=== PATIENT | female | born 1940 | race Caucasian/White ===

== ENCOUNTER 2016-08-09 17:31 | Emergency (ER) | payer MEDICARE, BC ==
[2016-08-09] MEDS ORDERED: Sodium Chloride 0.9% 10 ML Syringe FLUSH PRN (18:28)
[2016-08-09] MEDS ORDERED: Albuterol/Ipratropium 3.0-0.5 MG/3 ML Neb Soln NEB ONE (18:28)
[2016-08-09] MEDS ORDERED: methylPREDNISolone Sodium Succinate 125 MG/2 ML SDV IVPUSH ONE (18:28)
[2016-08-09] MEDS ORDERED: Furosemide 40 MG/4 ML VIAL IVPUSH ONE (18:30)
[2016-08-09] MEDS ORDERED: Metoprolol Tartrate 25 MG Tab PO ONE (18:33)
[2016-08-09 19:23] LABS: CHLORIDE,CL 101 mmol/L (101-111); SODIUM,NA 139 mmol/L (135-145)
[2016-08-09] MEDS ORDERED: Nitroglycerin 0.4 MG Tab.SL SL ONE (19:58)
[2016-08-09 20:06] VITALS: BP 174/74
--- NOTE | 2016-08-10 01:33 | ER ---
SUBJECTIVE: The patient is a 75-year-old female with known COPD. She is on 2 L of oxygen during the night. She gets bronchitic symptoms on occasion. She has hypertension, hyperlipidemia, and is on multiple meds. She comes in today stating that she was seen already for a harsh congestive cough, yellow at times. She was diagnosed with bronchitis at the clinic today. She had a chest x-ray per her report and did not show any pneumonia. She was given antibiotic. She also note she had a little bit of hypertension in clinic today and she was told to watch her blood pressure. She did begin taking the doxycycline she was placed on. Apparently, her cough symptoms began on Friday of this previous week. She comes into ER tonight because her blood pressure went back up, even though she took her medicines. At home it was about 178 systolic and she forgets what the diastolic number was. She does have a mild headache, unsure if that was from the blood pressure or not. Otherwise, she has some fatigue and tiredness. She did have some nausea earlier. PAST MEDICAL HISTORY: Significant for cataracts, impaired vision, she wears glasses, cataract surgery; tonsillectomy; hyperlipidemia; hypertension; CAD; coronary stents; COPD, oxygen requirement at night at 2 L, ongoing and chronic tobacco abuse; removal of her appendix; bladder suspension; hysterectomy; arthritis; obesity; chickenpox and measles as a child. CURRENT MEDICATIONS: Include: 1. Albuterol HFA 2 puffs inhaled q.4 hours p.r.n. 2. DuoNeb inhaled p.r.n. 3. Aspirin 81 mg p.o. daily. 4. Multivitamin p.o. daily. 5. Calcium carbonate/vitamin D3 1200 units daily. 6. Lisinopril 5 mg p.o. daily. 7. Metoprolol 25 mg p.o. daily. 8. Fluticasone 1 puff inhaled daily. 9. Crestor 5 mg p.o. at bedtime. ALLERGIES: No allergies. SOCIAL HISTORY: She does use tobacco and has done so for many years. Currently 0.5 packs per day and started 50 years ago. She does use caffeine and soda. No alcohol. No recreational drug use. REVIEW OF SYSTEMS: No fevers, some fatigue. She is coughing quite a bit, bringing up some sputum. Mild headache. No syncope, near syncope, or vision changes. No trauma. No falls. No chest pain. She knows her blood pressure is elevated. No vomiting. She does have slight nausea earlier. No bowel or bladder changes. OBJECTIVE: Vital Signs: Height is 1.59 m, weight is 82 kg. She is afebrile. Heart rate 85, blood pressure is 231/107, respiratory rate 18, and oxygen is 90% on room air. General: Pleasant, no distress, nontoxic. HEENT: Normocephalic and atraumatic. Good historian. Normal speech. No respiratory distress. Conjunctivae are clear. Mucous membranes are moist. Neck: Unremarkable. No JVD. No lymphadenopathy. Chest: Somewhat coarse. She does have somewhat reduced breath sounds. CV: RRR. Abdomen: Soft, benign. Back: No CVAT. Extremities: Calves are nontender. There is trace swelling. LAB/STUDIES: White count is normal at 8.7. She has no anemia. Platelets are normal. Differential unremarkable. BMP is also unremarkable. A BNP is elevated at 205. EMERGENCY ROOM COURSE: She was given a DuoNeb. She was also given 10 mg IV of Lasix and 25 mg oral metoprolol. She was also given 125 mg IV of Solu-Medrol. She tolerated all of these well. Her blood pressure would jump, it did come down fairly well to a level at one point of 174 systolic and 71 diastolic. However, when she would get up to go to the bathroom and she was also somewhat anxious at times, her blood pressure would then come back up higher than this. She was then given a nitroglycerin sublingual which helped to reduce her blood pressure nicely. ASSESSMENT: 1. Acute bronchitis in patient with chronic and recurrent bronchitis with chronic obstructive pulmonary disease and ongoing tobacco abuse. 2. Hypertension. PLAN: Continue following blood pressure at home once or twice a day, stay with family. Continue with meds, and she may need blood pressure medicine changes when she follows up with PCP. See prescription for Medrol Dosepak. Return for any emergent or acute issues. Take Tylenol and ibuprofen for any discomfort. She was discharged home in stable and improved condition. [facility] /[id number]
== END 2016-08-09 20:36 | disposition home or self-care (01) ==
LOC: DL.ED 17:31
DX: J44.9 Chronic obstructive pulmonary disease, unspecified (principal); J20.9 Acute bronchitis, unspecified; I10 Essential (primary) hypertension; I25.10 Atherosclerotic heart disease of native coronary artery without angina pectoris; E66.9 Obesity, unspecified; M19.90 Unspecified osteoarthritis, unspecified site; F17.210 Nicotine dependence, cigarettes, uncomplicated; Z98.49 Cataract extraction status, unspecified eye; Z98.890 Other specified postprocedural states; Z90.710 Acquired absence of both cervix and uterus
CPT/HCPCS: 36415; 80048; 83880; 85025; 94640; 96374; 96375; 99283; A9270; J1940; J2930; J7050; 99284

== ENCOUNTER 2016-12-12 13:02 | Inpatient (IN) | payer MEDICARE, BC ==
[2016-12-12] MEDS ORDERED: Ondansetron 4 MG Tab.DIS PO PRN (14:18)
[2016-12-12] MEDS ORDERED: Ipratropium 0.02% 0.5 MG/2.5 ML Neb Soln INH PRN (14:26)
--- NOTE | 2016-12-12 14:37 | PCM.HP ---
H&P History of Present Illness - General Date of Service: 12/12/16 Admit Problem/Dx: Admission Diagnosis/Problem Admission Diagnosis/Problem Weakness of extremity Status post coronary artery bypass graft Hypertension Chronic obstructive airway disease Dyslipidemia Post operative pain Acute blood loss anemia Diarrhea Poor Appetite Source of Information: Patient, Old Records - History of Present Illness Initial Comments - Free Text/Narative: Mrs Wheeler is a 75 year old female with medical history of coronary artery disease hypertension and dyslipidemia. The patient was seen with complaint of shortness of breath at [facility], underwent stress test and was found to have significant ischemia. She underwent coronary angiogram which showed severe left main disease. The patient underwent coronary artery bypass graft on 07 December 2016. Post operatively the patient has been weak and has poor appetite and generalized body malaise. The patient is transferred to the rehabilitation for physical and occupational therapy. Today the patient also has no new complaints. Still feels weak poor appetite and gets short of breath with activity. She is needing supplemental oxygen Still has some shortness of breath Duration of Symptoms: Reports: Day(s): Improves with: Reports: None, Rest Worsens with: Reports: None, Movement Associated Symptoms: Reports: No Other Symptoms, Malaise, Weakness - Related Data Allergies/Adverse Reactions: Allergies Allergy/AdvReac Type Severity Reaction Status Date / Time environmental allergies Allergy Sneezing Uncoded 12/12/16 12:41 Home Medications: Home Meds Bioflav,Lemon/Vit BComp&C [Lipo-Flavonoid Plus Caplet] 1 each PO DAILY 03/25/14 [History] Calcium Carbonate/Vitamin D3 [Calcium 500 + Vit D 200 Caplet] 1 tab PO DAILY [History] Lisinopril [Lisinopril] 10 mg PO DAILY 03/25/14 [History] Rosuvastatin [Crestor] 20 mg PO BEDTIME 08/09/16 [History] Albuterol [Proventil Neb Soln] 2.5 mg NEB QIDRT PRN 12/11/16 [History] Fluticasone/Vilanterol [Breo Ellipta 200-25 Mcg INH] 1 puff INH DAILY 12/11/16 [ History] Ipratropium [Atrovent] 1 inh INH Q4HRRT PRN 12/11/16 [History] Multivitamin [Multiple Vitamins] 1 tab PO DAILY 12/11/16 [History] Amiodarone [Cordarone] 200 mg PO BID 12/12/16 [History] Aspirin/Calcium Carbonate/Mag [Aspirin Buffered 325 mg Tab] 1 tab PO DAILY 12/12 [History] Docusate Sodium [Dss] 1 cap PO DAILY 12/12/16 [History] Hydrocodone/Acetaminophen [Hydrocodon-Acetaminophen 5-325] 1 tab PO Q4HR PRN [History] Metoprolol Tartrate 25 mg PO BID 12/12/16 [History] Omeprazole 20 mg PO DAILY 12/12/16 [History] Past Medical History HEENT History: Reports: Cataract, Impaired Vision Other HEENT History: wears glasses Cardiovascular History: Reports: Afib, CAD, High Cholesterol, Hypertension, Stents Respiratory History: Reports: COPD, SOB Gastrointestinal History: Reports: None Genitourinary History: Reports: None Other Genitourinary History: bladder tie up in February [employer] History: Reports: Musculoskeletal History: Reports: Arthritis Neurological History: Reports: None Psychiatric History: Reports: None Endocrine/Metabolic History: Reports: Obesity/BMI 30+ Hematologic History: Reports: None Immunologic History: Reports: None Oncologic (Cancer) History: Reports: Other (See Below) Other Oncologic History: skin Dermatologic History: Reports: None - Infectious Disease History Infectious Disease History: Reports: Chicken Pox, Measles - Past Surgical History Head Surgeries/Procedures: Reports: None HEENT Surgical History: Reports: Cataract Surgery, Tonsillectomy Cardiovascular Surgical History: Reports: Coronary Artery Bypass, Other (See Below) Other Cardiovascular Surgeries/Procedures: CABG x 2 on December 06, 2016. GI Surgical History: Reports: Appendectomy Female Surgical History: Reports: Hysterectomy Social & Family History - Family History Family Medical History: Noncontributory - Tobacco Use Smoking Status *Q: Current Every Day Smoker Years of Tobacco use: 55 Packs/Tins Daily: 0.5 Used Tobacco, but Quit: No Second Hand Smoke Exposure: No - Caffeine Use Caffeine Use: Reports: Coffee, Soda - Alcohol Use Days Per Week of Alcohol Use: 0 - Recreational Drug Use Recreational Drug Use: No Drug Use in Last 12 Months: No - Living Situation & Occupation Living situation: Reports: , Alone Occupation: Retired H&P Review of Systems - Review of Systems: Review Of Systems: See Below General: Reports: Weakness, Fatigue HEENT: Reports: No Symptoms Pulmonary: Reports: Shortness of Breath Cardiovascular: Reports: Dyspnea on Exertion Gastrointestinal: Reports: No Symptoms, Diarrhea Genitourinary: Reports: No Symptoms Musculoskeletal: Reports: No Symptoms Skin: Reports: No Symptoms Psychiatric: Reports: No Symptoms Neurological: Reports: No Symptoms Hematologic/Lymphatic: Reports: No Symptoms Immunologic: Reports: No Symptoms Exam - Exam Exam: See Below (socially is shaking) - Vital Signs Vital Signs: Last Vital Signs Temp 37.0 C 12/12/16 13:31 Pulse 70 12/12/16 13:31 Resp 20 12/12/16 13:31 BP 154/47 H 12/12/16 13:31 Pulse Ox 94 L 12/12/16 13:31 Weight: 82.917 kg - Exam Quality Assessment: Supplemental Oxygen General: Alert, Oriented, Cooperative HEENT: PERRLA, Hearing Intact, Mucosa Moist & [place], Nares Patent, Normal Nasal Septum, Posterior Pharynx Clear, Conjunctiva Clear, EOMI, EACs Clear, TMs Clear Neck: Supple Lungs: Clear to Auscultation, Decreased Breath Sounds Cardiovascular: Regular Rate, Regular Rhythm, Normal S1, Normal S2 GI/Abdominal Exam: Normal Bowel Sounds, Soft, Non-Tender, No Organomegaly, No Distention, No Abnormal Bruit, No Mass, Pelvis Stable Back Exam: Normal Inspection, Full Range of Motion, NT Extremities: Normal Inspection, Normal Range of Motion, Non-Tender, No Pedal Edema, Normal Capillary Refill Skin: Warm, Dry Neurological: Cranial Nerves Intact, Normal Gait Neuro Extensive - Motor, Sensory, Reflexes: CN II-XII Intact Psychiatric: Alert, Normal Mood *Q Meaningful Use (ADM) - VTE *Q VTE Criteria *Q: - VTE Risk Assess *Q Each Risk Factor Represents 1 Point: History of Prior Major Surgery, Abnormal Pulmonary Function (COPD) Total Score 1 Point Risk Factors: 2 Each Risk Factor Represents 2 Points: Age 60 - 74 Years (All is any room for if she gets it when necessary and then made to scheduled on) Total Score 2 Point Risk Factors: 2 Each Risk Factor Represents 3 Points: Surgery, Major, Lasting 2 - 3 Hours Total Score 3 Point Risk Factors: 3 Each Risk Factor Represents 5 Points: None Total Score 5 Point Risk Factors: 0 Venous Thromboembolism Risk Factor Score *Q: 7 - Stroke *Q Stroke Criteria *Q: - AMI *Q AMI Criteria *Q: Problem List Initiated/Reviewed/Updated: Yes Orders Last 24hrs: Active Orders 24 hr Category Date Time Status Patient Status [ADT] Routine ADT 12/12/16 14:18 Ordered Communication Order [RC] ROUTINE Care 12/12/16 14:30 Ordered Height and Weight [RC] WEEKLY Care 12/12/16 14:21 Ordered Intake and Output [RC] QSHIFT Care 12/12/16 14:20 Ordered Oxygen Therapy [RC] PRN Care 12/12/16 14:18 Ordered Up ad [place] [RC] ASDIRECTED Care 12/12/16 14:18 Ordered VTE/DVT Education [RC] PER UNIT ROUTINE Care 12/12/16 14:18 Ordered Vital Signs [RC] PER UNIT ROUTINE Care 12/12/16 14:18 Ordered OT Evaluation and Treatment [CONS] Routine Cons 12/12/16 14:18 Ordered PT Evaluation and Treatment [CONS] Routine Cons 12/12/16 14:18 Ordered Regular Diet [DIET] Diet 12/12/16 Lunch Ordered Acetaminophen/HYDROcodone [[place] 325-5 MG] Med 12/12/16 21:00 Ordered 1 tab PO BEDTIME Acetaminophen/oxyCODONE [Percocet 325-5 MG] Med 12/12/16 14:18 Ordered 1 tab PO Q4H PRN Albuterol [Proventil Neb Soln] Med 12/12/16 14:26 Ordered 2.5 mg NEB QIDRT PRN Amiodarone [Cordarone] Med 12/12/16 21:00 Ordered 200 mg PO BID Aspirin/Calcium Carbonate/Mag [Aspirin Buffered 325 mg Med 12/13/16 09:00 Ordered Tab] 1 tab PO DAILY Bioflav,Lemon/Vit BComp&C [Lipo-Flavonoid Plus Caplet] Med 12/13/16 09:00 Ordered 1 each PO DAILY Calcium Carbonate/Vitamin D3 [Calcium Carbonate/Vitamin Med 12/13/16 09:00 Ordered D 1250 MG-200 Unit] 1 tab PO DAILY Fluticasone/Vilanterol [Breo Ellipta 200-25 Mcg INH] Med 12/13/16 09:00 Ordered 1 puff INH DAILY Heparin Sodium Med 12/12/16 22:00 Ordered 5,000 units SUBCUT Q8HR Ipratropium [Atrovent] Med 12/12/16 14:26 Ordered 1 inh INH Q4HRRT PRN Lisinopril [Prinivil] Med 12/13/16 09:00 Ordered 10 mg PO DAILY Metoprolol Tartrate [Lopressor] Med 12/12/16 21:00 Ordered 25 mg PO BID Multivitamin [Multiple Vitamins] Med 12/13/16 09:00 Ordered 1 tab PO DAILY Omeprazole Med 12/13/16 09:00 Ordered 20 mg PO DAILY Ondansetron [Zofran ODT] Med 12/12/16 14:18 Ordered 4 mg PO Q6H PRN Rosuvastatin [Crestor] Med 12/12/16 21:00 Ordered 20 mg PO BEDTIME Resuscitation Status Routine Resus Stat 12/12/16 14:18 Ordered Medication Orders Hydrocodone Bitart/Acetaminophen ([place] 325-5 Mg) 1 tab PO BEDTIME JOSE Albuterol (Proventil Neb Soln) 2.5 mg NEB QIDRT PRN PRN Reason: Shortness of Breath Amiodarone HCl (Cordarone) 200 mg PO BID JOSE Calcium Carbonate (Calcium Carbonate/Vitamin D 1250 Mg-200 Unit) 1 tab PO DAILY JOSE Heparin Sodium (Porcine) (Heparin Sodium) 5,000 units SUBCUT Q8HR JOSE Ipratropium [place] (Atrovent) mg INH Q4HRRT PRN PRN Reason: Shortness of Breath Lisinopril (Prinivil) 10 mg PO DAILY JOSE Metoprolol Tartrate (Lopressor) 25 mg PO BID JOSE Non-Formulary Medication (Fluticasone/Vilanterol [Breo Ellipta 200-25 Mcg Inh]) 1 puff INH DAILY JOSE Non-Formulary Medication (Multivitamin [Multiple Vitamins]) 1 tab PO DAILY JOSE Non-Formulary Medication (Bioflav,Lemon/Vit Bcomp&C [Lipo-Flavonoid Plus Caplet] ) 1 each PO DAILY JOSE Non-Formulary Medication (Aspirin/Calcium Carbonate/Mag [Aspirin Buffered 325 Mg Tab]) 1 tab PO DAILY JOSE Omeprazole (Omeprazole) 20 mg PO DAILY JOSE Ondansetron HCl (Zofran Odt) 4 mg PO Q6H PRN PRN Reason: nausea, able to take PO Oxycodone/Acetaminophen (Percocet 325-5 Mg) 1 tab PO Q4H PRN PRN Reason: Pain (moderate 4-6) Rosuvastatin Calcium (Crestor) 20 mg PO BEDTIME [facility] Assessment/Plan Comment:: Admission Diagnosis/Problem Generalized weakness Consult physical and occupational therapy Status post coronary artery bypass graft Surgery was on 07 December 2016 Admitted to [facility] bed for aggressive physical and occupational therapy Amiodarone Aspirin Hypertension Lisinopril Metoprolol Chronic obstructive airway disease Albuterol when necessary Fluticasone/Vilanterol Dyslipidemia Rosuvastatin Post operative pain Hydrocodone nightly Hydrocodone when necessary Acute blood loss anemia Serial hemoglobin Diarrhea Change Colace to when necessary Poor Appetite Provide nutritional supplements 2 times a day
[2016-12-12] MEDS ORDERED: Docusate Sodium 100 MG Cap PO PRN (15:00)
[2016-12-12] MEDS: Acetaminophen/oxyCODONE 325-5 MG Tab PO PRN ×2 (18:16→23:52)
[2016-12-12] MEDS: Rosuvastatin 10 MG Tab PO SCH (21:09)
[2016-12-12] MEDS: Amiodarone 200 MG Tab PO SCH (21:10)
[2016-12-12] MEDS: Metoprolol Tartrate 25 MG Tab PO SCH (21:10)
[2016-12-12] MEDS: Acetaminophen/HYDROcodone 325-5 MG Tab PO SCH (21:11)
[2016-12-12] MEDS: Heparin Sodium 5,000 Units/ML Vial SUBCUT SCH (21:13)
[2016-12-12] MEDS ORDERED: traZODone 50 MG Tab PO SCH (23:55)
[2016-12-13] MEDS: Heparin Sodium 5,000 Units/ML Vial SUBCUT SCH ×3 (06:39→21:27)
[2016-12-13] MEDS: Omeprazole 20 MG Cap.CR PO SCH (06:39)
[2016-12-13] MEDS: Calcium Carbonate/Vitamin D3 1250 MG-200 Unit Tab PO SCH (08:56)
[2016-12-13] MEDS: Multivitamins,Therapeutic Tab PO SCH (08:56)
[2016-12-13] MEDS: Metoprolol Tartrate 25 MG Tab PO SCH ×2 (08:57→21:24)
[2016-12-13] MEDS: Amiodarone 200 MG Tab PO SCH ×2 (08:57→21:27)
[2016-12-13] MEDS: Aspirin 325 MG Tab.EC PO SCH (08:57)
[2016-12-13] MEDS: Lisinopril 5 MG Tab PO SCH (08:58)
[2016-12-13] MEDS: Albuterol 0.083% 2.5 MG/3 ML Neb Soln NEB PRN ×2 (09:06→15:00)
[2016-12-13] MEDS: Acetaminophen/HYDROcodone 325-10 MG Tab PO PRN ×2 (16:03→23:02)
[2016-12-13] MEDS: [UNRECOGNIZED DRUG - OTHER] PO SCH (17:22)
[2016-12-13] MEDS: Rosuvastatin 10 MG Tab PO SCH (21:25)
[2016-12-13] MEDS: Non-Formulary Medication 1 Each PO SCH (21:26)
[2016-12-13] MEDS: Acetaminophen/HYDROcodone 325-5 MG Tab PO SCH (21:26)
[2016-12-14] MEDS: Omeprazole 20 MG Cap.CR PO SCH (05:57)
[2016-12-14] MEDS: Heparin Sodium 5,000 Units/ML Vial SUBCUT SCH ×3 (05:57→21:42)
[2016-12-14] MEDS: Acetaminophen/HYDROcodone 325-10 MG Tab PO PRN ×2 (05:57→15:10)
[2016-12-14] MEDS: Albuterol 0.083% 2.5 MG/3 ML Neb Soln NEB PRN ×2 (06:28→15:11)
[2016-12-14] MEDS: Aspirin 325 MG Tab.EC PO SCH (10:08)
[2016-12-14] MEDS: Acetaminophen/HYDROcodone 325-5 MG Tab PO SCH ×2 (10:08→21:39)
[2016-12-14] MEDS: Lisinopril 5 MG Tab PO SCH (10:09)
[2016-12-14] MEDS: Amiodarone 200 MG Tab PO SCH ×2 (10:09→21:37)
[2016-12-14] MEDS: Calcium Carbonate/Vitamin D3 1250 MG-200 Unit Tab PO SCH (10:11)
[2016-12-14] MEDS: Metoprolol Tartrate 25 MG Tab PO SCH ×2 (10:11→21:37)
[2016-12-14] MEDS: Multivitamins,Therapeutic Tab PO SCH (10:11)
[2016-12-14] MEDS: [UNRECOGNIZED DRUG - OTHER] PO SCH (10:12)
[2016-12-14] MEDS: Albuterol 0.083% 2.5 MG/3 ML Neb Soln NEB SCH ×3 (17:04→21:45)
[2016-12-14] MEDS ORDERED: Nicotine 21 MG/24 Hr Patch TRDERM SCH (21:00)
[2016-12-14] MEDS: Rosuvastatin 10 MG Tab PO SCH (21:37)
[2016-12-14] MEDS: Non-Formulary Medication 1 Each PO SCH (21:42)
[2016-12-15] MEDS: Acetaminophen/HYDROcodone 325-10 MG Tab PO PRN ×2 (00:49→23:56)
[2016-12-15] MEDS: Albuterol 0.083% 2.5 MG/3 ML Neb Soln NEB SCH ×6 (03:00→23:57)
[2016-12-15] MEDS: Heparin Sodium 5,000 Units/ML Vial SUBCUT SCH ×3 (06:19→21:38)
[2016-12-15] MEDS: Omeprazole 20 MG Cap.CR PO SCH (06:19)
[2016-12-15] MEDS: Acetaminophen/HYDROcodone 325-5 MG Tab PO SCH ×2 (09:41→20:46)
[2016-12-15] MEDS: [UNRECOGNIZED DRUG - OTHER] PO SCH (09:41)
[2016-12-15] MEDS: Calcium Carbonate/Vitamin D3 1250 MG-200 Unit Tab PO SCH (09:41)
[2016-12-15] MEDS: Nicotine 21 MG/24 Hr Patch TRDERM SCH (09:41)
[2016-12-15] MEDS: Aspirin 325 MG Tab.EC PO SCH (09:41)
[2016-12-15] MEDS: Metoprolol Tartrate 25 MG Tab PO SCH ×2 (09:42→20:45)
[2016-12-15] MEDS: Multivitamins,Therapeutic Tab PO SCH (09:43)
[2016-12-15] MEDS: Lisinopril 5 MG Tab PO SCH (09:44)
[2016-12-15] MEDS: Amiodarone 200 MG Tab PO SCH ×2 (09:44→20:44)
[2016-12-15] MEDS: Furosemide 40 MG Tab PO SCH (11:01)
--- NOTE | 2016-12-15 11:45 | PCM.PN ---
- General Info Date of Service: 12/15/16 Admission Dx/Problem (Free Text): Admission Diagnosis/Problem Admission Diagnosis/Problem Weakness of extremity Status post coronary artery bypass graft Hypertension Chronic obstructive airway disease Dyslipidemia Post operative pain Acute blood loss anemia Diarrhea Poor Appetite Subjective Update: Patient complains of feeling short of breath. This is worse when she ambulates and better with rest and Also complains of constipation. Has not had a bowel movement for 3 days. No fever and no chills - Review of Systems General: Reports: No Symptoms Pulmonary: Reports: Shortness of Breath Cardiovascular: Reports: Dyspnea on Exertion Genitourinary: Reports: No Symptoms Neurological: Reports: No Symptoms - Patient Data Vitals - most recent: Last Vital Signs Temp 36.4 C 12/15/16 07:40 Pulse 69 12/15/16 09:42 Resp 20 12/15/16 07:40 BP 154/48 H 12/15/16 09:44 Pulse Ox 99 12/15/16 07:40 Weight - most recent: 82.917 kg I&O - last 24 hours: Intake & Output 12/14/16 12/15/16 12/15/16 22:59 06:59 14:59 Intake Total 225 Output Total 600 Balance -375 Lab Results last 24 hrs: Laboratory Results - last 24 hr 12/15/16 Range/Units 06:25 B-Natriuretic Peptide 1270 H (0-100) pg/ml Med Orders - Current: Current Medications Hydrocodone Bitart/Acetaminophen ([place] 325-5 Mg) 1 tab PO BID [facility] Last Admin: 12/15/16 09:41 Dose: 1 tab Hydrocodone Bitart/Acetaminophen ([place] 325-10 Mg) 1 tab PO Q6H PRN PRN Reason: Pain Last Admin: 12/15/16 00:49 Dose: 1 tab Albuterol (Proventil Neb Soln) 2.5 mg NEB QIDRT PRN PRN Reason: Shortness of Breath Last Admin: 12/14/16 15:11 Dose: 2.5 mg Albuterol (Proventil Neb Soln) 2.5 mg NEB Q4HRRT [facility] Last Admin: 12/15/16 11:36 Dose: 2.5 mg Amiodarone HCl (Cordarone) 200 mg PO BID [facility] Stop: 12/25/16 21:01 Last Admin: 12/15/16 09:44 Dose: 200 mg Amiodarone HCl (Cordarone) 200 mg PO DAILY [facility] Stop: 01/01/17 09:01 Aspirin (Ecotrin) 325 mg PO DAILY [facility] Last Admin: 12/15/16 09:41 Dose: 325 mg Calcium Carbonate (Calcium Carbonate/Vitamin D 1250 Mg-200 Unit) 1 tab PO DAILY [facility] Last Admin: 12/15/16 09:41 Dose: 1 tab Docusate Sodium (Colace) 200 mg PO BID [facility] Furosemide (Lasix) 40 mg PO DAILY [facility] Last Admin: 12/15/16 11:01 Dose: 40 mg Heparin Sodium (Porcine) (Heparin Sodium) 5,000 units SUBCUT Q8HR [facility] Last Admin: 12/15/16 06:19 Dose: 5,000 units Ipratropium [place] (Atrovent) 0.5 mg INH Q4HRRT PRN PRN Reason: Shortness of Breath Lactulose (Cephulac) 20 gm PO BID [facility] Stop: 12/17/16 23:59 Lisinopril (Prinivil) 10 mg PO DAILY [facility] Last Admin: 12/15/16 09:44 Dose: 10 mg Metoprolol Tartrate (Lopressor) 25 mg PO BID [facility] Last Admin: 12/15/16 09:42 Dose: 25 mg Miscellaneous Information (Remove Patch) 1 ea TRDERM DAILY [facility] Last Admin: 12/15/16 10:02 Dose: Not Given Multivitamins (Thera) 1 each PO DAILY [facility] Last Admin: 12/15/16 09:43 Dose: 1 each Nicotine (Habitrol) 21 mg TRDERM DAILY [facility] Last Admin: 12/15/16 09:41 Dose: 21 mg Non-Formulary Medication (Fluticasone/Vilanterol [Breo Ellipta 200-25 Mcg Inh]) 1 puff INH DAILY [facility] Non-Formulary Medication (Nf Drug) 1 each PO BEDTIME [facility] Last Admin: 12/14/16 21:42 Dose: 1 each Omeprazole (Omeprazole) 20 mg PO ACBRK [facility] Last Admin: 12/15/16 06:19 Dose: 20 mg Ondansetron HCl (Zofran Odt) 4 mg PO Q6H PRN PRN Reason: nausea, able to take PO Bioflav,Lemon/Vit Bcomp&C [Lipo- Flavonoid Plus Caplet]Pt's Own Med 1 each PO DAILY [facility] Last Admin: 12/15/16 09:41 Dose: 1 each Rosuvastatin Calcium (Crestor) 20 mg PO BEDTIME JOSE Last Admin: 12/14/16 21:37 Dose: 20 mg Discontinued Medications Hydrocodone Bitart/Acetaminophen ([place] 325-5 Mg) 1 tab PO BEDTIME JOSE Last Admin: 12/12/16 21:11 Dose: 1 tab Docusate Sodium (Colace) 100 mg PO DAILY PRN PRN Reason: constipation Oxycodone/Acetaminophen (Percocet 325-5 Mg) 1 tab PO Q4H PRN PRN Reason: Pain (moderate 4-6) Last Admin: 12/12/16 23:52 Dose: 1 tab Trazodone HCl (Trazodone) 50 mg PO BEDTIME JOSE Last Admin: 12/13/16 00:48 Dose: Not Given - Exam Quality Assessment: supplemental oxygen General: no acute distress Neck: supple Lungs: Decreased Breath Sounds Cardiovascular: Regular Rate GI/Abdominal Exam: Normal Bowel Sounds Extremities: Normal Inspection, Normal Range of Motion, Non-Tender, No Pedal Edema, Normal Capillary Refill Skin: warm - Problem List Review Problem List Initiated/Reviewed/Updated: Yes - My Orders Last 24 Hours: My Active Orders 12/14/16 17:00 Albuterol [Proventil Neb Soln] 2.5 mg NEB Q4HRRT 12/15/16 09:00 Nicotine [Habitrol] 21 mg TRDERM DAILY Remove Patch 1 ea TRDERM DAILY 12/15/16 09:15 Furosemide [Lasix] 40 mg PO DAILY 12/15/16 21:00 Docusate Sodium [Colace] 200 mg PO BID Lactulose [Cephulac] 20 gm PO BID 12/26/16 09:00 Amiodarone [Cordarone] 200 mg PO DAILY - Plan Plan:: Admission Diagnosis/Problem #. Shortness of breath Likely due to congestive heart failure I will obtain chest x-ray initially showed pulmonary vascular congestion and small pleural effusion [place] natruretic peptide is elevated to more than 1200 #. Generalized weakness Consult physical and occupational therapy #. Status post coronary artery bypass graft Surgery was on 07 December 2016 Admitted to [facility] bed for aggressive physical and occupational therapy Amiodarone Aspirin #. Hypertension Lisinopril Metoprolol #. Chronic obstructive airway disease Albuterol when necessary Fluticasone/Vilanterol #. Dyslipidemia Rosuvastatin #. Post operative pain Hydrocodone nightly Hydrocodone when necessary #. Acute blood loss anemia Serial hemoglobin #. Constipation Likely due to narcotic analgesics Plan: Start patient on Lasix 40 mg daily Start patient on lactulose 20 g twice a day Increase Colace to 2 tablets twice a day
[2016-12-15] MEDS: Lactulose Soln 10 GM/15 ML 30 ML UD Cup PO SCH (20:44)
[2016-12-15] MEDS: Docusate Sodium 100 MG Cap PO SCH (20:45)
[2016-12-15] MEDS: Rosuvastatin 10 MG Tab PO SCH (20:47)
[2016-12-15] MEDS: Non-Formulary Medication 1 Each PO SCH (21:40)
[2016-12-16] MEDS: Albuterol 0.083% 2.5 MG/3 ML Neb Soln NEB SCH ×7 (04:07→23:57)
[2016-12-16] MEDS: Omeprazole 20 MG Cap.CR PO SCH (06:05)
[2016-12-16] MEDS: Acetaminophen/HYDROcodone 325-10 MG Tab PO PRN (06:05)
[2016-12-16] MEDS: Heparin Sodium 5,000 Units/ML Vial SUBCUT SCH ×3 (06:06→21:02)
[2016-12-16] MEDS: Nicotine 21 MG/24 Hr Patch TRDERM SCH (09:39)
[2016-12-16] MEDS: Acetaminophen/HYDROcodone 325-5 MG Tab PO SCH ×2 (09:39→20:54)
[2016-12-16] MEDS: Lactulose Soln 10 GM/15 ML 30 ML UD Cup PO SCH ×2 (09:41→21:02)
[2016-12-16] MEDS: Aspirin 325 MG Tab.EC PO SCH (09:42)
[2016-12-16] MEDS: Furosemide 40 MG Tab PO SCH (09:42)
[2016-12-16] MEDS: Docusate Sodium 100 MG Cap PO SCH ×2 (09:42→21:02)
[2016-12-16] MEDS: Metoprolol Tartrate 25 MG Tab PO SCH ×2 (09:42→20:53)
[2016-12-16] MEDS: Calcium Carbonate/Vitamin D3 1250 MG-200 Unit Tab PO SCH (09:43)
[2016-12-16] MEDS: Lisinopril 5 MG Tab PO SCH (09:43)
[2016-12-16] MEDS: Amiodarone 200 MG Tab PO SCH ×2 (09:43→20:52)
[2016-12-16] MEDS: Multivitamins,Therapeutic Tab PO SCH (09:43)
[2016-12-16] MEDS: [UNRECOGNIZED DRUG - OTHER] PO SCH (09:49)
[2016-12-16] MEDS: FLUTICASONE FUROATE INH SCH (11:38)
[2016-12-16] MEDS: VILANTEROL INH SCH ×3 (11:38→12:00)
[2016-12-16] MEDS: FLUTICASONE INH SCH ×2 (11:59→12:00)
[2016-12-16] MEDS: Rosuvastatin 10 MG Tab PO SCH (20:53)
[2016-12-16] MEDS: Non-Formulary Medication 1 Each PO SCH (20:58)
[2016-12-17] MEDS: Albuterol 0.083% 2.5 MG/3 ML Neb Soln NEB SCH ×3 (02:58→07:43)
[2016-12-17] MEDS: Heparin Sodium 5,000 Units/ML Vial SUBCUT SCH ×3 (05:34→21:50)
[2016-12-17] MEDS: Omeprazole 20 MG Cap.CR PO SCH (05:34)
[2016-12-17] MEDS: Calcium Carbonate/Vitamin D3 1250 MG-200 Unit Tab PO SCH (09:08)
[2016-12-17] MEDS: Docusate Sodium 100 MG Cap PO SCH ×2 (09:09→21:45)
[2016-12-17] MEDS: Amiodarone 200 MG Tab PO SCH ×2 (09:10→21:45)
[2016-12-17] MEDS: Nicotine 21 MG/24 Hr Patch TRDERM SCH (09:11)
[2016-12-17] MEDS: Furosemide 40 MG Tab PO SCH (09:11)
[2016-12-17] MEDS: Metoprolol Tartrate 25 MG Tab PO SCH ×2 (09:11→21:46)
[2016-12-17] MEDS: Aspirin 325 MG Tab.EC PO SCH (09:11)
[2016-12-17] MEDS: Lisinopril 5 MG Tab PO SCH (09:13)
[2016-12-17] MEDS: Multivitamins,Therapeutic Tab PO SCH (09:14)
[2016-12-17] MEDS: Acetaminophen/HYDROcodone 325-5 MG Tab PO SCH ×3 (09:14→21:49)
[2016-12-17] MEDS: VILANTEROL INH SCH (09:18)
[2016-12-17] MEDS: FLUTICASONE FUROATE INH SCH (09:18)
[2016-12-17] MEDS: [UNRECOGNIZED DRUG - OTHER] PO SCH (09:18)
[2016-12-17] MEDS: Lactulose Soln 10 GM/15 ML 30 ML UD Cup PO SCH (09:25)
[2016-12-17] MEDS: Albuterol/Ipratropium 3.0-0.5 MG/3 ML Neb Soln NEB SCH (18:00)
[2016-12-17] MEDS: Rosuvastatin 10 MG Tab PO SCH (21:45)
[2016-12-17] MEDS: Non-Formulary Medication 1 Each PO SCH (21:50)
[2016-12-18] MEDS: Heparin Sodium 5,000 Units/ML Vial SUBCUT SCH ×3 (06:41→21:24)
[2016-12-18] MEDS: Omeprazole 20 MG Cap.CR PO SCH (06:41)
[2016-12-18 06:54] LABS: CHLORIDE,CL 94 mmol/L (101-111); SODIUM,NA 138 mmol/L (135-145)
[2016-12-18] MEDS: Albuterol/Ipratropium 3.0-0.5 MG/3 ML Neb Soln NEB SCH ×2 (07:34→17:47)
[2016-12-18] MEDS: Calcium Carbonate/Vitamin D3 1250 MG-200 Unit Tab PO SCH (09:10)
[2016-12-18] MEDS: Aspirin 325 MG Tab.EC PO SCH (09:11)
[2016-12-18] MEDS: Amiodarone 200 MG Tab PO SCH ×2 (09:11→21:23)
[2016-12-18] MEDS: Metoprolol Tartrate 25 MG Tab PO SCH ×2 (09:12→21:21)
[2016-12-18] MEDS: Nicotine 21 MG/24 Hr Patch TRDERM SCH (09:12)
[2016-12-18] MEDS: Furosemide 40 MG Tab PO SCH (09:12)
[2016-12-18] MEDS: Acetaminophen/HYDROcodone 325-5 MG Tab PO SCH ×2 (09:13→21:23)
[2016-12-18] MEDS: Lisinopril 5 MG Tab PO SCH (09:14)
[2016-12-18] MEDS: [UNRECOGNIZED DRUG - OTHER] PO SCH (09:15)
[2016-12-18] MEDS: Multivitamins,Therapeutic Tab PO SCH (09:15)
[2016-12-18] MEDS: VILANTEROL INH SCH (09:16)
[2016-12-18] MEDS: FLUTICASONE FUROATE INH SCH (09:16)
[2016-12-18] MEDS: Docusate Sodium 100 MG Cap PO SCH ×2 (09:25→21:21)
[2016-12-18] MEDS: Rosuvastatin 10 MG Tab PO SCH (21:21)
[2016-12-18] MEDS: Non-Formulary Medication 1 Each PO SCH (21:26)
[2016-12-19] MEDS: Omeprazole 20 MG Cap.CR PO SCH (06:26)
[2016-12-19] MEDS: Heparin Sodium 5,000 Units/ML Vial SUBCUT SCH ×3 (06:26→21:48)
[2016-12-19] MEDS: Albuterol/Ipratropium 3.0-0.5 MG/3 ML Neb Soln NEB SCH ×2 (07:27→17:34)
[2016-12-19] MEDS: Docusate Sodium 100 MG Cap PO SCH ×2 (08:53→20:22)
[2016-12-19] MEDS: Calcium Carbonate/Vitamin D3 1250 MG-200 Unit Tab PO SCH (08:53)
[2016-12-19] MEDS: Aspirin 325 MG Tab.EC PO SCH (08:54)
[2016-12-19] MEDS: Nicotine 21 MG/24 Hr Patch TRDERM SCH (08:54)
[2016-12-19] MEDS: Furosemide 40 MG Tab PO SCH (08:54)
[2016-12-19] MEDS: Amiodarone 200 MG Tab PO SCH ×2 (08:54→20:22)
[2016-12-19] MEDS: Acetaminophen/HYDROcodone 325-5 MG Tab PO SCH ×2 (08:55→20:25)
[2016-12-19] MEDS: Metoprolol Tartrate 25 MG Tab PO SCH ×2 (08:55→20:24)
[2016-12-19] MEDS: Lisinopril 5 MG Tab PO SCH (08:56)
[2016-12-19] MEDS: FLUTICASONE FUROATE INH SCH (08:57)
[2016-12-19] MEDS: VILANTEROL INH SCH (08:57)
[2016-12-19] MEDS: [UNRECOGNIZED DRUG - OTHER] PO SCH (08:57)
[2016-12-19] MEDS: Multivitamins,Therapeutic Tab PO SCH (08:57)
[2016-12-19] MEDS ORDERED: Menthol/Methyl Salicylate 85 GM Tube TOP ONE (11:18)
[2016-12-19] MEDS: Menthol/Methyl Salicylate 85 GM Tube TOP PRN ×2 (11:51→20:26)
[2016-12-19] MEDS: Rosuvastatin 10 MG Tab PO SCH (20:23)
[2016-12-19] MEDS: Non-Formulary Medication 1 Each PO SCH (20:26)
[2016-12-20] MEDS: Acetaminophen/HYDROcodone 325-10 MG Tab PO PRN (02:35)
[2016-12-20] MEDS: Omeprazole 20 MG Cap.CR PO SCH (06:00)
[2016-12-20] MEDS: Heparin Sodium 5,000 Units/ML Vial SUBCUT SCH ×3 (06:01→22:00)
[2016-12-20] MEDS: Albuterol/Ipratropium 3.0-0.5 MG/3 ML Neb Soln NEB SCH ×2 (06:56→18:06)
[2016-12-20] MEDS: Metoprolol Tartrate 25 MG Tab PO SCH ×2 (10:19→21:54)
[2016-12-20] MEDS: Aspirin 325 MG Tab.EC PO SCH (10:20)
[2016-12-20] MEDS: Furosemide 40 MG Tab PO SCH (10:20)
[2016-12-20] MEDS: Lisinopril 5 MG Tab PO SCH (10:21)
[2016-12-20] MEDS: Amiodarone 200 MG Tab PO SCH ×2 (10:21→21:50)
[2016-12-20] MEDS: Calcium Carbonate/Vitamin D3 1250 MG-200 Unit Tab PO SCH (10:22)
[2016-12-20] MEDS: Acetaminophen/HYDROcodone 325-5 MG Tab PO SCH ×2 (10:22→21:55)
[2016-12-20] MEDS: Multivitamins,Therapeutic Tab PO SCH (10:22)
[2016-12-20] MEDS: Nicotine 21 MG/24 Hr Patch TRDERM SCH (10:23)
[2016-12-20] MEDS: Docusate Sodium 100 MG Cap PO SCH ×2 (10:27→21:51)
[2016-12-20] MEDS: [UNRECOGNIZED DRUG - OTHER] PO SCH (10:28)
[2016-12-20] MEDS: VILANTEROL INH SCH (10:29)
[2016-12-20] MEDS: FLUTICASONE FUROATE INH SCH (10:29)
[2016-12-20] MEDS: Rosuvastatin 10 MG Tab PO SCH (21:52)
[2016-12-20] MEDS: Non-Formulary Medication 1 Each PO SCH (22:02)
[2016-12-21] MEDS: Omeprazole 20 MG Cap.CR PO SCH (06:05)
[2016-12-21] MEDS: Heparin Sodium 5,000 Units/ML Vial SUBCUT SCH ×3 (06:06→22:26)
[2016-12-21] MEDS: Menthol/Methyl Salicylate 85 GM Tube TOP PRN ×3 (06:10→17:53)
[2016-12-21] MEDS: Albuterol/Ipratropium 3.0-0.5 MG/3 ML Neb Soln NEB SCH ×2 (07:19→18:15)
[2016-12-21] MEDS: Aspirin 325 MG Tab.EC PO SCH (09:27)
[2016-12-21] MEDS: Docusate Sodium 100 MG Cap PO SCH ×2 (09:28→22:20)
[2016-12-21] MEDS: Nicotine 21 MG/24 Hr Patch TRDERM SCH (09:28)
[2016-12-21] MEDS: Acetaminophen/HYDROcodone 325-5 MG Tab PO SCH ×2 (09:28→22:22)
[2016-12-21] MEDS: Multivitamins,Therapeutic Tab PO SCH (09:29)
[2016-12-21] MEDS: Lisinopril 5 MG Tab PO SCH (09:29)
[2016-12-21] MEDS: Metoprolol Tartrate 25 MG Tab PO SCH ×2 (09:29→22:21)
[2016-12-21] MEDS: Furosemide 40 MG Tab PO SCH (09:30)
[2016-12-21] MEDS: Amiodarone 200 MG Tab PO SCH ×2 (09:30→22:19)
[2016-12-21] MEDS: Calcium Carbonate/Vitamin D3 1250 MG-200 Unit Tab PO SCH (09:30)
[2016-12-21] MEDS: [UNRECOGNIZED DRUG - OTHER] PO SCH (09:35)
[2016-12-21] MEDS: VILANTEROL INH SCH (09:35)
[2016-12-21] MEDS: FLUTICASONE FUROATE INH SCH (09:35)
[2016-12-21] MEDS: Rosuvastatin 10 MG Tab PO SCH (22:21)
[2016-12-21] MEDS: Non-Formulary Medication 1 Each PO SCH (22:25)
[2016-12-22] MEDS: Heparin Sodium 5,000 Units/ML Vial SUBCUT SCH ×3 (06:03→21:02)
[2016-12-22] MEDS: Omeprazole 20 MG Cap.CR PO SCH (06:03)
[2016-12-22] MEDS: Albuterol/Ipratropium 3.0-0.5 MG/3 ML Neb Soln NEB SCH ×2 (07:40→18:10)
[2016-12-22] MEDS: Menthol/Methyl Salicylate 85 GM Tube TOP PRN ×2 (09:32→15:38)
[2016-12-22] MEDS: VILANTEROL INH SCH (09:32)
[2016-12-22] MEDS: FLUTICASONE FUROATE INH SCH (09:32)
[2016-12-22] MEDS: Docusate Sodium 100 MG Cap PO SCH ×2 (09:33→20:50)
[2016-12-22] MEDS: Nicotine 21 MG/24 Hr Patch TRDERM SCH (09:33)
[2016-12-22] MEDS: Furosemide 40 MG Tab PO SCH (09:34)
[2016-12-22] MEDS: Acetaminophen/HYDROcodone 325-5 MG Tab PO SCH ×2 (09:34→20:57)
[2016-12-22] MEDS: Lisinopril 5 MG Tab PO SCH (09:34)
[2016-12-22] MEDS: Amiodarone 200 MG Tab PO SCH ×2 (09:34→20:56)
[2016-12-22] MEDS: Aspirin 325 MG Tab.EC PO SCH (09:34)
[2016-12-22] MEDS: Metoprolol Tartrate 25 MG Tab PO SCH ×2 (09:36→20:56)
[2016-12-22] MEDS: Calcium Carbonate/Vitamin D3 1250 MG-200 Unit Tab PO SCH (09:36)
[2016-12-22] MEDS: Multivitamins,Therapeutic Tab PO SCH (09:36)
[2016-12-22] MEDS: [UNRECOGNIZED DRUG - OTHER] PO SCH (10:26)
[2016-12-22] MEDS: Rosuvastatin 10 MG Tab PO SCH (20:49)
[2016-12-22] MEDS: Non-Formulary Medication 1 Each PO SCH (20:58)
[2016-12-23] MEDS: Omeprazole 20 MG Cap.CR PO SCH (06:01)
[2016-12-23] MEDS: Heparin Sodium 5,000 Units/ML Vial SUBCUT SCH ×3 (06:02→21:22)
[2016-12-23] MEDS: Menthol/Methyl Salicylate 85 GM Tube TOP PRN ×3 (06:04→21:21)
[2016-12-23 07:25] LABS: CHLORIDE,CL 96 mmol/L (101-111); SODIUM,NA 136 mmol/L (135-145)
[2016-12-23] MEDS: Albuterol/Ipratropium 3.0-0.5 MG/3 ML Neb Soln NEB SCH ×2 (07:41→17:54)
[2016-12-23] MEDS: Calcium Carbonate/Vitamin D3 1250 MG-200 Unit Tab PO SCH (09:09)
[2016-12-23] MEDS: Multivitamins,Therapeutic Tab PO SCH (09:09)
[2016-12-23] MEDS: Aspirin 325 MG Tab.EC PO SCH (09:09)
[2016-12-23] MEDS: Furosemide 40 MG Tab PO SCH (09:10)
[2016-12-23] MEDS: Amiodarone 200 MG Tab PO SCH ×2 (09:10→21:17)
[2016-12-23] MEDS: Docusate Sodium 100 MG Cap PO SCH ×2 (09:10→21:17)
[2016-12-23] MEDS: Nicotine 21 MG/24 Hr Patch TRDERM SCH (09:10)
[2016-12-23] MEDS: Lisinopril 5 MG Tab PO SCH (09:10)
[2016-12-23] MEDS: Metoprolol Tartrate 25 MG Tab PO SCH ×2 (09:11→21:18)
[2016-12-23] MEDS: Acetaminophen/HYDROcodone 325-5 MG Tab PO SCH ×2 (09:11→21:18)
[2016-12-23] MEDS: [UNRECOGNIZED DRUG - OTHER] PO SCH (09:13)
[2016-12-23] MEDS: VILANTEROL INH SCH (09:13)
[2016-12-23] MEDS: FLUTICASONE FUROATE INH SCH (09:13)
[2016-12-23] MEDS: Rosuvastatin 10 MG Tab PO SCH (21:18)
[2016-12-23] MEDS: Non-Formulary Medication 1 Each PO SCH (21:19)
[2016-12-24] MEDS: Omeprazole 20 MG Cap.CR PO SCH (06:03)
[2016-12-24] MEDS: Heparin Sodium 5,000 Units/ML Vial SUBCUT SCH ×3 (06:03→21:16)
[2016-12-24] MEDS: Albuterol/Ipratropium 3.0-0.5 MG/3 ML Neb Soln NEB SCH ×2 (06:03→18:20)
[2016-12-24] MEDS: Menthol/Methyl Salicylate 85 GM Tube TOP PRN ×2 (06:23→21:19)
[2016-12-24] MEDS: Docusate Sodium 100 MG Cap PO SCH ×2 (09:31→21:14)
[2016-12-24] MEDS: Amiodarone 200 MG Tab PO SCH ×2 (09:32→21:15)
[2016-12-24] MEDS: Furosemide 40 MG Tab PO SCH (09:32)
[2016-12-24] MEDS: Calcium Carbonate/Vitamin D3 1250 MG-200 Unit Tab PO SCH (09:32)
[2016-12-24] MEDS: Metoprolol Tartrate 25 MG Tab PO SCH ×2 (09:33→21:15)
[2016-12-24] MEDS: Nicotine 21 MG/24 Hr Patch TRDERM SCH (09:34)
[2016-12-24] MEDS: Aspirin 325 MG Tab.EC PO SCH (09:34)
[2016-12-24] MEDS: Acetaminophen/HYDROcodone 325-5 MG Tab PO SCH ×2 (09:35→21:17)
[2016-12-24] MEDS: Lisinopril 5 MG Tab PO SCH (09:35)
[2016-12-24] MEDS: [UNRECOGNIZED DRUG - OTHER] PO SCH (09:45)
[2016-12-24] MEDS: VILANTEROL INH SCH (09:46)
[2016-12-24] MEDS: FLUTICASONE FUROATE INH SCH (09:46)
[2016-12-24] MEDS: Multivitamins,Therapeutic Tab PO SCH (09:51)
--- NOTE | 2016-12-24 14:29 | PCM.PN ---
- General Info Date of Service: 12/24/16 Admission Dx/Problem (Free Text): Admission Diagnosis/Problem Admission Diagnosis/Problem Weakness of extremity Status post coronary artery bypass graft Hypertension Chronic obstructive airway disease Dyslipidemia Post operative pain Acute blood loss anemia Diarrhea Poor Appetite Subjective Update: feeling good improving strength has been ambulating well with pt still need 1-2 l oxygen with ambulation short of breath is mild. This is worse when she ambulates and better with rest no cp with activity No fever and no chills - Review of Systems General: Denies: Fever Pulmonary: Reports: Shortness of Breath Cardiovascular: Denies: Chest Pain Gastrointestinal: Denies: Abdominal Pain Psychiatric: Denies: Confusion - Patient Data Vitals - Most Recent: Last Vital Signs Temp 36.8 C 12/24/16 08:24 Pulse 69 12/24/16 09:33 Resp 20 12/24/16 08:24 BP 169/43 H 12/24/16 09:35 Pulse Ox 99 12/24/16 08:24 Weight - Most Recent: 80.456 kg I&O - Last 24 Hours: Intake & Output 12/23/16 12/24/16 12/24/16 22:59 06:59 14:59 Intake Total 200 500 361 Balance 200 500 361 Med Orders - Current: Current Medications Hydrocodone Bitart/Acetaminophen ([place] 325-5 Mg) 1 tab PO BID [facility] Last Admin: 12/24/16 09:35 Dose: 1 tab Hydrocodone Bitart/Acetaminophen ([place] 325-10 Mg) 1 tab PO Q6H PRN PRN Reason: Pain Last Admin: 12/20/16 02:35 Dose: 1 tab Albuterol (Proventil Neb Soln) 2.5 mg NEB QIDRT PRN PRN Reason: Shortness of Breath Last Admin: 12/14/16 15:11 Dose: 2.5 mg Albuterol/Ipratropium (Duoneb 3.0-0.5 Mg/3 Ml) 3 ml NEB BIDRT [facility] Last Admin: 12/24/16 06:03 Dose: 3 ml Amiodarone HCl (Cordarone) 200 mg PO BID [facility] Stop: 12/25/16 21:01 Last Admin: 12/24/16 09:32 Dose: 200 mg Amiodarone HCl (Cordarone) 200 mg PO DAILY [facility] Stop: 01/01/17 09:01 Aspirin (Ecotrin) 325 mg PO DAILY [facility] Last Admin: 12/24/16 09:34 Dose: 325 mg Calcium Carbonate (Calcium Carbonate/Vitamin D 1250 Mg-200 Unit) 1 tab PO DAILY [facility] Last Admin: 12/24/16 09:32 Dose: 1 tab Docusate Sodium (Colace) 200 mg PO BID [facility] Last Admin: 12/24/16 09:31 Dose: 200 mg Furosemide (Lasix) 40 mg PO DAILY [facility] Last Admin: 12/24/16 09:32 Dose: 40 mg Heparin Sodium (Porcine) (Heparin Sodium) 5,000 units SUBCUT Q8HR [facility] Last Admin: 12/24/16 13:42 Dose: 5,000 units Ipratropium [place] (Atrovent) 0.5 mg INH Q4HRRT PRN PRN Reason: Shortness of Breath Methyl Salicylate (Icy Hot Cream) 0 gm TOP QID PRN PRN Reason: Pain Last Admin: 12/24/16 06:23 Dose: 1 applic Metoprolol Tartrate (Lopressor) 25 mg PO BID [facility] Last Admin: 12/24/16 09:33 Dose: 25 mg Miscellaneous Information (Remove Patch) 1 ea TRDERM DAILY [facility] Last Admin: 12/24/16 09:46 Dose: 1 ea Multivitamins (Thera) 1 each PO DAILY [facility] Last Admin: 12/24/16 09:51 Dose: Not Given Nicotine (Habitrol) 21 mg TRDERM DAILY [facility] Last Admin: 12/24/16 09:34 Dose: 21 mg Non-Formulary Medication (Nf Drug) 1 each PO BEDTIME [facility] Last Admin: 12/23/16 21:19 Dose: 1 each Omeprazole (Omeprazole) 20 mg PO ACBRK [facility] Last Admin: 12/24/16 06:03 Dose: 20 mg Ondansetron HCl (Zofran Odt) 4 mg PO Q6H PRN PRN Reason: nausea, able to take PO Bioflav,Lemon/Vit Bcomp&C [Lipo- Flavonoid Plus Caplet]Pt's Own Med 1 each PO DAILY [facility] Last Admin: 12/24/16 09:45 Dose: Not Given Breo Elliptra 100/25 Mcg Pt's Own Med* * 0 each INH DAILY [facility] Last Admin: 12/24/16 09:46 Dose: 1 each Rosuvastatin Calcium (Crestor) 20 mg PO BEDTIME [facility] Last Admin: 12/23/16 21:18 Dose: 20 mg Discontinued Medications Hydrocodone Bitart/Acetaminophen ([place] 325-5 Mg) 1 tab PO BEDTIME [facility] Last Admin: 12/12/16 21:11 Dose: 1 tab Albuterol (Proventil Neb Soln) 2.5 mg NEB Q4HRRT [facility] Last Admin: 12/17/16 07:43 Dose: 2.5 mg Docusate Sodium (Colace) 100 mg PO DAILY PRN PRN Reason: constipation Lactulose (Cephulac) 20 gm PO BID [facility] Stop: 12/17/16 23:59 Last Admin: 12/17/16 09:25 Dose: 20 gm Lisinopril (Prinivil) 10 mg PO DAILY [facility] Last Admin: 12/24/16 09:35 Dose: 10 mg Methyl Salicylate (Icy Hot Cream) 1 gm TOP BID ONE Stop: 12/19/16 11:19 Last Admin: 12/19/16 12:12 Dose: Not Given Oxycodone/Acetaminophen (Percocet 325-5 Mg) 1 tab PO Q4H PRN PRN Reason: Pain (moderate 4-6) Last Admin: 12/12/16 23:52 Dose: 1 tab Fluticasone/Vilanterol [Breo Ellipta 200-25 Mcg Inh]Pt's Own Med* 0 each INH DAILY [facility] Last Admin: 12/16/16 12:00 Dose: Not Given Trazodone HCl (Trazodone) 50 mg PO BEDTIME [facility] Last Admin: 12/13/16 00:48 Dose: Not Given - Exam Quality Assessment: Supplemental Oxygen General: Alert, Oriented Neck: Supple Lungs: Clear to Auscultation, Normal Respiratory Effort Cardiovascular: Regular Rate, Regular Rhythm GI/Abdominal Exam: Normal Bowel Sounds, Soft, Non-Tender Extremities: Normal Inspection, No Pedal Edema Neurological: No New Focal Deficit Psy/Mental Status: Alert, Normal Affect, Normal Mood - Problem List & Annotations (1) CAD (coronary artery disease) SNOMED Code(s): 31118225 Code(s): I25.10 - ATHSCL HEART DISEASE OF [place] CORONARY ARTERY W/O ANG PCTRS Status: Acute Current Visit: Yes (2) Hypertension SNOMED Code(s): 34607577 Code(s): I10 - ESSENTIAL (PRIMARY) HYPERTENSION Status: Acute Current Visit: No Onset Date: ~08/09/16 - Problem List Review Problem List Initiated/Reviewed/Updated: Yes - My Orders Last 24 Hours: My Active Orders 12/25/16 09:00 Lisinopril [Prinivil] 20 mg PO DAILY - Plan Plan:: Admission Diagnosis/Problem #. Shortness of breath Likely due to acute systolic congestive heart failure improved with diuretics #. Generalized weakness Continue physical and occupational therapy #. Status post coronary artery bypass graft Surgery was on 07 December 2016 Admitted to swing bed for aggressive physical and occupational therapy Amiodarone - taper Aspirin #. Hypertension uncontrolled increase Lisinopril continue Metoprolol #. Chronic obstructive airway disease Albuterol when necessary Fluticasone/Vilanterol #. Dyslipidemia Rosuvastatin #. Post operative pain Hydrocodone when necessary #. Acute blood loss anemia following CABG monitor
[2016-12-24] MEDS: Rosuvastatin 10 MG Tab PO SCH (21:14)
[2016-12-24] MEDS: Non-Formulary Medication 1 Each PO SCH (21:16)
[2016-12-25] MEDS: Heparin Sodium 5,000 Units/ML Vial SUBCUT SCH ×3 (06:15→22:13)
[2016-12-25] MEDS: Omeprazole 20 MG Cap.CR PO SCH (06:15)
[2016-12-25] MEDS: Menthol/Methyl Salicylate 85 GM Tube TOP PRN ×3 (06:23→22:14)
[2016-12-25] MEDS: Albuterol/Ipratropium 3.0-0.5 MG/3 ML Neb Soln NEB SCH ×2 (07:17→17:34)
[2016-12-25] MEDS: Furosemide 40 MG Tab PO SCH (10:15)
[2016-12-25] MEDS: Calcium Carbonate/Vitamin D3 1250 MG-200 Unit Tab PO SCH (10:16)
[2016-12-25] MEDS: Docusate Sodium 100 MG Cap PO SCH ×2 (10:17→22:09)
[2016-12-25] MEDS: Aspirin 325 MG Tab.EC PO SCH (10:18)
[2016-12-25] MEDS: Multivitamins,Therapeutic Tab PO SCH (10:18)
[2016-12-25] MEDS: Acetaminophen/HYDROcodone 325-5 MG Tab PO SCH ×2 (10:19→22:12)
[2016-12-25] MEDS: Nicotine 21 MG/24 Hr Patch TRDERM SCH (10:20)
[2016-12-25] MEDS: [UNRECOGNIZED DRUG - OTHER] PO SCH (10:29)
[2016-12-25] MEDS: Amiodarone 200 MG Tab PO SCH ×2 (10:42→22:10)
[2016-12-25] MEDS: Metoprolol Tartrate 25 MG Tab PO SCH ×2 (10:42→22:10)
[2016-12-25] MEDS: Lisinopril 20 MG Tab PO SCH (10:42)
[2016-12-25] MEDS: VILANTEROL INH SCH (10:46)
[2016-12-25] MEDS: FLUTICASONE FUROATE INH SCH (10:46)
[2016-12-25] MEDS: Polyethylene Glycol 3350 Powder 17 GM Packet PO SCH (16:25)
[2016-12-25] MEDS: Non-Formulary Medication 1 Each PO SCH (22:11)
[2016-12-25] MEDS: Rosuvastatin 10 MG Tab PO SCH (22:11)
[2016-12-26] MEDS: Heparin Sodium 5,000 Units/ML Vial SUBCUT SCH ×3 (06:43→22:06)
[2016-12-26] MEDS: Omeprazole 20 MG Cap.CR PO SCH (06:43)
[2016-12-26] MEDS: Albuterol/Ipratropium 3.0-0.5 MG/3 ML Neb Soln NEB SCH ×2 (07:33→18:04)
[2016-12-26] MEDS: Amiodarone 200 MG Tab PO SCH (08:58)
[2016-12-26] MEDS: Aspirin 325 MG Tab.EC PO SCH (08:59)
[2016-12-26] MEDS: Nicotine 21 MG/24 Hr Patch TRDERM SCH (08:59)
[2016-12-26] MEDS: Docusate Sodium 100 MG Cap PO SCH ×2 (08:59→20:30)
[2016-12-26] MEDS: Calcium Carbonate/Vitamin D3 1250 MG-200 Unit Tab PO SCH (08:59)
[2016-12-26] MEDS: [UNRECOGNIZED DRUG - OTHER] PO SCH (09:00)
[2016-12-26] MEDS: Lisinopril 20 MG Tab PO SCH (09:00)
[2016-12-26] MEDS: Furosemide 40 MG Tab PO SCH (09:01)
[2016-12-26] MEDS: Acetaminophen/HYDROcodone 325-5 MG Tab PO SCH ×2 (09:01→20:35)
[2016-12-26] MEDS: Multivitamins,Therapeutic Tab PO SCH (09:01)
[2016-12-26] MEDS: Metoprolol Tartrate 25 MG Tab PO SCH ×2 (09:02→20:36)
[2016-12-26] MEDS: Polyethylene Glycol 3350 Powder 17 GM Packet PO SCH (09:02)
[2016-12-26] MEDS: VILANTEROL INH SCH (09:03)
[2016-12-26] MEDS: FLUTICASONE FUROATE INH SCH (09:03)
[2016-12-26] MEDS: Menthol/Methyl Salicylate 85 GM Tube TOP PRN ×2 (09:03→20:37)
[2016-12-26] MEDS: Rosuvastatin 10 MG Tab PO SCH (20:34)
[2016-12-26] MEDS: Non-Formulary Medication 1 Each PO SCH (20:37)
[2016-12-27] MEDS: Omeprazole 20 MG Cap.CR PO SCH (05:55)
[2016-12-27] MEDS: Heparin Sodium 5,000 Units/ML Vial SUBCUT SCH ×2 (05:55→13:49)
[2016-12-27 06:59] LABS: CHLORIDE,CL 97 mmol/L (101-111); SODIUM,NA 137 mmol/L (135-145)
[2016-12-27] MEDS: Albuterol/Ipratropium 3.0-0.5 MG/3 ML Neb Soln NEB SCH (07:33)
[2016-12-27 08:22] VITALS: BP 169/49
[2016-12-27] MEDS: VILANTEROL INH SCH (09:15)
[2016-12-27] MEDS: FLUTICASONE FUROATE INH SCH (09:15)
[2016-12-27] MEDS: Acetaminophen/HYDROcodone 325-5 MG Tab PO SCH (09:16)
[2016-12-27] MEDS: Furosemide 40 MG Tab PO SCH (09:16)
[2016-12-27] MEDS: Lisinopril 20 MG Tab PO SCH (09:17)
[2016-12-27] MEDS: Metoprolol Tartrate 25 MG Tab PO SCH (09:17)
[2016-12-27] MEDS: Polyethylene Glycol 3350 Powder 17 GM Packet PO SCH (09:18)
[2016-12-27] MEDS: Aspirin 325 MG Tab.EC PO SCH (09:18)
[2016-12-27] MEDS: Amiodarone 200 MG Tab PO SCH (09:18)
[2016-12-27] MEDS: Nicotine 21 MG/24 Hr Patch TRDERM SCH (09:19)
[2016-12-27] MEDS: [UNRECOGNIZED DRUG - OTHER] PO SCH (09:20)
[2016-12-27] MEDS: Calcium Carbonate/Vitamin D3 1250 MG-200 Unit Tab PO SCH (09:20)
[2016-12-27] MEDS: Docusate Sodium 100 MG Cap PO SCH (09:20)
[2016-12-27] MEDS: Multivitamins,Therapeutic Tab PO SCH (09:21)
[2016-12-27] MEDS: Menthol/Methyl Salicylate 85 GM Tube TOP PRN (09:22)
--- NOTE | 2016-12-27 10:56 | PCM.DCSUM1 ---
Discharge Summary - Hospital Course Free Text/Narrative:: #. Status post coronary artery bypass graft Surgery was on 07 December 2016 Admitted to swing bed for aggressive physical and occupational therapy had postoperative Afib tapered and stopped amiodarone cont Metoprolol, asa #. Shortness of breath due to acute systolic congestive heart failure improved with diuretics #. Generalized weakness improved with physical and occupational therapy #. Hypertension was uncontrolled increased Lisinopril continue Metoprolol follow as out pt periodically #. Chronic obstructive airway disease Albuterol when necessary Fluticasone/Vilanterol will need home oxygen #. Dyslipidemia Rosuvastatin #. Post operative pain Hydrocodone when necessary #. Acute blood loss anemia following CABG monitor periodically - Discharge Data Discharge Date: 12/27/16 Discharge Disposition: Home, Self-Care 01 Condition: Good - Discharge Diagnosis/Problem(s) (1) CAD (coronary artery disease) SNOMED Code(s): 39389610 ICD Code: I25.10 - ATHSCL HEART DISEASE OF [place] CORONARY ARTERY W/O ANG PCTRS Status: Acute Current Visit: Yes (2) Hypertension SNOMED Code(s): 06924422 ICD Code: I10 - ESSENTIAL (PRIMARY) HYPERTENSION Status: Acute Current Visit: Yes Onset Date: ~08/09/16 - Patient Summary/Data Consults: Consultations 12/12/16 14:18 OT Evaluation and Treatment [CONS] Routine PT Evaluation and Treatment [CONS] Routine - Patient Instructions Diet: Heart Healthy Diet Activity: As Tolerated - Discharge Plan Prescriptions/Med Rec: Furosemide [Lasix] 40 mg PO DAILY #30 tablet Lisinopril [Prinivil] 20 mg PO BID #60 tablet Home Medications: Home Meds Bioflav,Lemon/Vit BComp&C [Lipo-Flavonoid Plus Caplet] 1 each PO DAILY 03/25/14 [History] Calcium Carbonate/Vitamin D3 [Calcium 500-Vit D3 200 Caplet] 1 tab PO DAILY [History] Rosuvastatin [Crestor] 20 mg PO BEDTIME 08/09/16 [History] Albuterol [Proventil Neb Soln] 2.5 mg NEB QIDRT PRN 12/11/16 [History] Ipratropium [Atrovent] 1 inh INH Q4HRRT PRN 12/11/16 [History] Multivitamin [Multiple Vitamins] 1 tab PO DAILY 12/11/16 [History] Aspirin/Calcium Carbonate/Mag [Aspirin Buffered 325 mg Tab] 1 tab PO DAILY 12/12 [History] Docusate Sodium [Dss] 1 cap PO DAILY 12/12/16 [History] Hydrocodone/Acetaminophen [Hydrocodon-Acetaminophen 5-325] 1 tab PO Q4HR PRN [History] Metoprolol Tartrate 25 mg PO BID 12/12/16 [History] Omeprazole 20 mg PO DAILY 12/12/16 [History] Melatonin 10 mg PO BEDTIME 12/13/16 [History] Fluticasone/Vilanterol [Breo Ellipta 100-25 MCG Inhalation Kit] 1 puff INH DAILY 12/16/16 [History] Furosemide [Lasix] 40 mg PO DAILY #30 tablet 12/27/16 [Rx] Lisinopril [Prinivil] 20 mg PO BID #60 tablet 12/27/16 [Rx] Patient Handouts: Coronary Artery Bypass Grafting, [id number], Coronary Artery Disease, Female - Discharge Summary/Plan Comment DC Time >30 min.: No - General Info Date of Service: 12/27/16 Admission Dx/Problem (Free Text: Admission Diagnosis/Problem Admission Diagnosis/Problem Weakness of extremity Status post coronary artery bypass graft Hypertension Chronic obstructive airway disease Dyslipidemia Post operative pain Acute blood loss anemia Diarrhea Poor Appetite Subjective Update: feeling good improving strength has been ambulating well with pt feels ready to go home still on oxygen short of breath is less. This is worse when she ambulates and better with rest no cp with activity No fever and no chills - Review of Systems General: Denies: Fever, Weakness Pulmonary: Reports: Shortness of Breath (mild ) Cardiovascular: Denies: Chest Pain Gastrointestinal: Denies: Abdominal Pain Genitourinary: Denies: Dysuria - Patient Data Vitals - Most Recent: Last Vital Signs Temp 36.4 C 12/27/16 08:22 Pulse 64 12/27/16 09:17 Resp 18 12/27/16 08:22 BP 169/49 H 12/27/16 09:17 Pulse Ox 97 12/27/16 08:22 Weight - Most Recent: 78.131 kg I&O - Last 24 hours: Intake & Output 12/26/16 12/27/16 12/27/16 22:59 06:59 14:59 Intake Total 320 220 Balance 320 220 Lab Results - Last 24 hrs: Laboratory Results - last 24 hr 12/27/16 12/27/16 Range/Units 06:15 06:15 WBC 9.2 (5.0-10.0) 10^3/uL RBC 3.52 L (4.2-5.4) 10^6/uL Hgb 10.6 L (12.0-16.0) g/dL Hct 32.9 L (37.0-47.0) % MCV 93.5 (80-100) fL MCH 30.1 (27.0-34.0) pg MCHC 32.2 L (33.0-35.0) g/dL Plt Count 180 (150-450) 10^3/uL Neut % (Auto) 69.0 (42.2-75.2) % Lymph % (Auto) 11.8 L (20.5-50.1) % [place] % (Auto) 13.7 H (2-8) % Eos % (Auto) 5.1 H (1.0-3.0) % Baso % (Auto) 0.4 (0.0-1.0) % Sodium 137 (135-145) mmol/L Potassium 4.3 (3.6-5.0) mmol/L Chloride 97 L (101-111) mmol/L Carbon Dioxide 30.0 (21.0-31.0) mmol/L Anion Gap 14.3 BUN 16 (7-18) mg/dL Creatinine 0.9 (0.6-1.3) mg/dL Est Cr Clr Drug Dosing 42.72 mL/min Estimated GFR (MDRD) > 60 Glucose 104 (74-105) mg/dL Calcium 9.2 (8.4-10.2) mg/dl Med Orders - Current: Current Medications Hydrocodone Bitart/Acetaminophen ([place] 325-5 Mg) 1 tab PO BID [facility] Last Admin: 12/27/16 09:16 Dose: 1 tab Hydrocodone Bitart/Acetaminophen ([place] 325-10 Mg) 1 tab PO Q6H PRN PRN Reason: Pain Last Admin: 12/20/16 02:35 Dose: 1 tab Albuterol (Proventil Neb Soln) 2.5 mg NEB QIDRT PRN PRN Reason: Shortness of Breath Last Admin: 12/14/16 15:11 Dose: 2.5 mg Albuterol/Ipratropium (Duoneb 3.0-0.5 Mg/3 Ml) 3 ml NEB BIDRT [facility] Last Admin: 12/27/16 07:33 Dose: 3 ml Amiodarone HCl (Cordarone) 200 mg PO DAILY [facility] Stop: 01/01/17 09:01 Last Admin: 12/27/16 09:18 Dose: 200 mg Aspirin (Ecotrin) 325 mg PO DAILY [facility] Last Admin: 12/27/16 09:18 Dose: 325 mg Calcium Carbonate (Calcium Carbonate/Vitamin D 1250 Mg-200 Unit) 1 tab PO DAILY [facility] Last Admin: 12/27/16 09:20 Dose: Not Given Docusate Sodium (Colace) 200 mg PO BID [facility] Last Admin: 12/27/16 09:20 Dose: Not Given Furosemide (Lasix) 40 mg PO DAILY [facility] Last Admin: 12/27/16 09:16 Dose: 40 mg Heparin Sodium (Porcine) (Heparin Sodium) 5,000 units SUBCUT Q8HR [facility] Last Admin: 12/27/16 05:55 Dose: 5,000 units Ipratropium [place] (Atrovent) 0.5 mg INH Q4HRRT PRN PRN Reason: Shortness of Breath Lisinopril (Prinivil) 20 mg PO BID [facility] Methyl Salicylate (Icy Hot Cream) 0 gm TOP QID PRN PRN Reason: Pain Last Admin: 12/27/16 09:22 Dose: 1 applic Metoprolol Tartrate (Lopressor) 25 mg PO BID [facility] Last Admin: 12/27/16 09:17 Dose: 25 mg Miscellaneous Information (Remove Patch) 1 ea TRDERM DAILY [facility] Last Admin: 12/27/16 09:20 Dose: 1 ea Multivitamins (Thera) 1 each PO DAILY [facility] Last Admin: 12/27/16 09:21 Dose: Not Given Nicotine (Habitrol) 21 mg TRDERM DAILY [facility] Last Admin: 12/27/16 09:19 Dose: 21 mg Non-Formulary Medication (Nf Drug) 1 each PO BEDTIME [facility] Last Admin: 12/26/16 20:37 Dose: 1 each Omeprazole (Omeprazole) 20 mg PO ACBRK [facility] Last Admin: 12/27/16 05:55 Dose: 20 mg Ondansetron HCl (Zofran Odt) 4 mg PO Q6H PRN PRN Reason: nausea, able to take PO Bioflav,Lemon/Vit Bcomp&C [Lipo- Flavonoid Plus Caplet]Pt's Own Med 1 each PO DAILY [facility] Last Admin: 12/27/16 09:20 Dose: Not Given Breo Elliptra 100/25 Mcg Pt's Own Med* * 0 each INH DAILY [facility] Last Admin: 12/27/16 09:15 Dose: 1 each Polyethylene Glycol (Miralax) 17 gm PO DAILY [facility] Last Admin: 12/27/16 09:18 Dose: 17 gm Rosuvastatin Calcium (Crestor) 20 mg PO BEDTIME [facility] Last Admin: 12/26/16 20:34 Dose: 20 mg Discontinued Medications Hydrocodone Bitart/Acetaminophen ([place] 325-5 Mg) 1 tab PO BEDTIME [facility] Last Admin: 12/12/16 21:11 Dose: 1 tab Albuterol (Proventil Neb Soln) 2.5 mg NEB Q4HRRT [facility] Last Admin: 12/17/16 07:43 Dose: 2.5 mg Amiodarone HCl (Cordarone) 200 mg PO BID [facility] Stop: 12/25/16 21:01 Last Admin: 12/25/16 22:10 Dose: 200 mg Docusate Sodium (Colace) 100 mg PO DAILY PRN PRN Reason: constipation Lactulose (Cephulac) 20 gm PO BID [facility] Stop: 12/17/16 23:59 Last Admin: 12/17/16 09:25 Dose: 20 gm Lisinopril (Prinivil) 10 mg PO DAILY [facility] Last Admin: 12/24/16 09:35 Dose: 10 mg Lisinopril (Prinivil) 20 mg PO DAILY [facility] Last Admin: 12/27/16 09:17 Dose: 20 mg Methyl Salicylate (Icy Hot Cream) 1 gm TOP BID ONE Stop: 12/19/16 11:19 Last Admin: 12/19/16 12:12 Dose: Not Given Oxycodone/Acetaminophen (Percocet 325-5 Mg) 1 tab PO Q4H PRN PRN Reason: Pain (moderate 4-6) Last Admin: 12/12/16 23:52 Dose: 1 tab Fluticasone/Vilanterol [Breo Ellipta 200-25 Mcg Inh]Pt's Own Med* 0 each INH DAILY [facility] Last Admin: 12/16/16 12:00 Dose: Not Given Trazodone HCl (Trazodone) 50 mg PO BEDTIME [facility] Last Admin: 12/13/16 00:48 Dose: Not Given - Exam Quality Assessment: Reports: Supplemental Oxygen General: Reports: Alert, Oriented Neck: Reports: Supple Lungs: Reports: Normal Respiratory Effort, Decreased Breath Sounds Cardiovascular: Reports: Regular Rate, Regular Rhythm, Murmurs (syst) GI/Abdominal Exam: Normal Bowel Sounds, Soft, Non-Tender Extremities: Normal Inspection Skin: Reports: Warm Wound/Incisions: Reports: Other (left groin area incison partially healed, no cellulitis, no drainage) Psy/Mental Status: Reports: Alert, Normal Affect, Normal Mood *Q Meaningful Use (DIS) - VTE *Q VTE Criteria *Q: VTE Mechanical Contraindications *Q: At Risk for Falls - Stroke *Q Stroke Criteria *Q: - AMI *Q AMI Criteria *Q:
[2016-12-27] MEDS ORDERED: Lisinopril 20 MG Tab PO SCH (21:00)
== END 2016-12-27 15:35 | disposition home or self-care (01) | DRG 947 ==
LOC: UNDOADMIN 13:02 → DL.MS 13:02
PROVIDERS: ADMIT Hospitalist; ATTEND Hospitalist
DX: R53.1 Weakness (principal); I50.21 Acute systolic (congestive) heart failure; D62 Acute posthemorrhagic anemia; I11.0 Hypertensive heart disease with heart failure; Z99.81 Dependence on supplemental oxygen; I25.10 Atherosclerotic heart disease of native coronary artery without angina pectoris; Z95.1 Presence of aortocoronary bypass graft; J44.9 Chronic obstructive pulmonary disease, unspecified; E78.5 Hyperlipidemia, unspecified; G89.18 Other acute postprocedural pain; F17.210 Nicotine dependence, cigarettes, uncomplicated; I48.91 Unspecified atrial fibrillation; R19.7 Diarrhea, unspecified; R63.0 Anorexia
CPT/HCPCS: 36415; 71010; 80048; 83880; 85025; 93306; 94640; 97110-GO; 97110-GP; 97116-GP; 97162-GP; 97165-GO; 97530-GO; A9270-GY; J1644; J7620-GY

== ENCOUNTER → 2017-09-30 | Day surgery (SDC) | payer MEDICARE, BC ==
[~2017-09-30] MED LIST: Dextrose 5%-0.45% NaCl 1,000 ML IV SCH; Midazolam 1 MG/ML 2 ML SDV IV ONE; Midazolam 1 MG/ML 2 ML SDV ONE; Sodium Chloride 0.9% 10 ML Syringe FLUSH PRN; fentaNYL 100 MCG/2 ML SDV IV ONE; fentaNYL 100 MCG/2 ML SDV ONE
[2017-09-30 07:46] VITALS: BP 157/60
--- NOTE | 2017-09-30 08:13 | OR ---
DATE: 09/30/2017 PROCEDURE PERFORMED: Total colonoscopy, NBI, and multiple cold snare polypectomies. INSTRUMENT USED: PCF-H180AL Olympus videocolonoscope. PREMEDICATIONS: Fentanyl 100 mcg intravenous and Versed 3 mg intravenous. Nasal O2 cannula. The procedure was done under pulse oximetry, BP recording, and flight surveyor. INDICATION: The patient with recent left-sided lower abdominal pain and CT suggestive of thickened sigmoid wall. Colonoscopic examination is done for detection of any polypoid lesions and removal, endoscopic hemostasis therapy if needed. DESCRIPTION OF PROCEDURE: Initial rectal exam was unremarkable. Rigid anoscopy was normal. The colonoscope was passed with ease. Numerous scattered diverticula were noted in the distal left colon along with deformity. The scope was passed with ease up to the ileocecal area, photographs were taken of the normal-appearing cecum identified by landmarks of appendiceal orifice and double- bulged ileocecal folds. No bleeding was noted from any of the visualized areas at the commencement of the examination. No stricture. No vascular ectasia. No large isolated ulcerations seen. No evidence of diffuse inflammatory bowel disease in the form of friability, contact bleeding, or ulcerations. Probing the proximal sides of folds and flexures, using adequate distention and clearing of the stool material, withdrawal of the scope was made. Diminutive benign- appearing colonic polyp was noted in the proximal transverse colon, NBI views were obtained, photographs were taken, cold snare polypectomy was done, the tissue was retrieved and sent for histopathology. In the distal descending colon, another diminutive polyp was noted, cold snare polypectomy was done, the tissue was retrieved and sent for histopathology. No bleeding was noted from any of the visualized areas at the completion of examination. IMPRESSION: 1. Diverticulosis. 2. Multiple colonic polyps. The patient tolerated the procedure well. [facility] /[id number]
== END | disposition home or self-care (01) ==
LOC: DL.ENDO 05:44
PROVIDERS: ATTEND Internal Medicine Gastroenterology
DX: D12.3 Benign neoplasm of transverse colon (principal); D12.4 Benign neoplasm of descending colon; K57.30 Diverticulosis of large intestine without perforation or abscess without bleeding; I10 Essential (primary) hypertension; I25.10 Atherosclerotic heart disease of native coronary artery without angina pectoris; J44.9 Chronic obstructive pulmonary disease, unspecified; E78.5 Hyperlipidemia, unspecified; E66.09 Other obesity due to excess calories; Z79.2 Long term (current) use of antibiotics; Z95.1 Presence of aortocoronary bypass graft; Z95.5 Presence of coronary angioplasty implant and graft; Z90.49 Acquired absence of other specified parts of digestive tract; Z90.710 Acquired absence of both cervix and uterus; Z86.010 Personal history of colon polyps
CPT/HCPCS: 45385; J2250; J3010; J7042; 88305

== ENCOUNTER 2018-02-09 18:36 | Observation (INO) | payer MEDICARE, BC ==
[2018-02-09] MEDS ORDERED: Sodium Chloride 0.9% 10 ML Syringe FLUSH PRN (19:05)
[2018-02-09 19:29] LABS: ANION GAP 11.1; CHLORIDE,CL 99 mmol/L (101-111); SODIUM,NA 139 mmol/L (135-145)
[2018-02-09] MEDS ORDERED: Acetaminophen 325 MG Tab PO ONE (19:47)
--- NOTE | 2018-02-09 19:53 | EDM.PDOC ---
ED HPI GENERAL MEDICAL PROBLEM - General Chief Complaint: Chest Pain Stated Complaint: HEART ISSUES [id number] Time Seen by Provider: 02/09/18 18:57 Source of Information: Reports: Patient, Family, RN, RN Notes Reviewed History Limitations: Reports: No Limitations - History of Present Illness INITIAL COMMENTS - FREE TEXT/NARRATIVE: Pt to ER with c/o generally not feeling well beginning this afternoon. Patient states she began to have a headache and her leg felt as if they were tingling. She states she found it difficult to breathe at times. She states she had an NH about 15 years ago, and double bypass 1 year ago. Patient states she checked her BP today and her machine told her she was in A fib. 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: Other (see below) Other Treatments ROAD SIGN INSTALLER: albuterol breathing treatment Frontal Head Pain Score (Numeric/FACES): 8 - Related Data Allergies Allergy/AdvReac Type Severity Reaction Status Date / Time environmental allergies Allergy Sneezing Uncoded 02/09/18 21:00 Home Meds: Home Meds Bioflav,Lemon/Vit BComp&C [Lipo-Flavonoid Plus Caplet] 1 each PO .PRN PRN [History] Calcium Carbonate/Vitamin D3 [Calcium 500-Vit D3 200 Caplet] 1 tab PO DAILY [History] Rosuvastatin [Crestor] 20 mg PO BEDTIME 08/09/16 [History] Albuterol [Proventil Neb Soln] 2.5 mg NEB .PRN PRN 12/11/16 [History] Ipratropium [Atrovent] 1 inh INH Q4HRRT PRN 12/11/16 [History] Multivitamin [Multiple Vitamins] 1 tab PO DAILY 12/11/16 [History] Fluticasone/Vilanterol [Breo Ellipta 100-25 MCG Inhalation Kit] 1 puff INH DAILY 12/16/16 [History] Aspirin [Ecotrin] 81 mg PO DAILY 12/27/16 [History] Furosemide [Lasix] 20 mg PO DAILY 01/08/17 [History] Metoprolol Succinate 50 mg PO DAILY 01/14/17 [History] Lisinopril [Prinivil] 20 mg PO DAILY 02/13/17 [History] Albuterol [Ventolin HFA] 2 puff INH Q6H PRN 09/26/17 [History] Bisacodyl [Dulcolax] 5 mg PO DAILY PRN 09/29/17 [History] Past Medical History HEENT History: Reports: Impaired Vision, Other (See Below) Other HEENT History: wears glasses Cardiovascular History: Reports: Bypass, CAD, High Cholesterol, Hypertension, NH , Stents Other Cardiovascular History: Coronary artery bypass grafting x2. left internal mammary artery to the left anterior descending artery. Sphenous vein graft to the first obtuse marginal branch. Hx of edema Respiratory History: Reports: Bronchitis, Recurrent, COPD Gastrointestinal History: Reports: None Genitourinary History: Reports: Renal Disease, Other (See Below) Other Genitourinary History: Chronic kidney disease-mineral and bone disorder. Chronic kidney disease state 3. Acute kidney injury. Microalbuminuria ASSURANCE ASSOCIATE History: Reports: , Other (See Below) Other ASSURANCE ASSOCIATE History: pap smear abnormality of cervix Musculoskeletal History: Reports: Arthritis, Other (See Below) Other Musculoskeletal History: DEXA scan Neurological History: Reports: Vertigo, Other (See Below) Other Neuro History: Benign positional vertigo Psychiatric History: Reports: None Endocrine/Metabolic History: Reports: Obesity/BMI 30+ Hematologic History: Reports: Other (See Below) Immunologic History: Reports: None Oncologic (Cancer) History: Reports: Other (See Below) Other Oncologic History: skin Dermatologic History: Reports: Other (See Below) Other Dermatologic History: skin cancer - Infectious Disease History Infectious Disease History: Reports: Chicken Pox, Measles - Past Surgical History Head Surgeries/Procedures: Reports: None HEENT Surgical History: Reports: Cataract Surgery, Tonsillectomy Other HEENT Surgeries/Procedures: LENS IMPLANT BILAT EYES Cardiovascular Surgical History: Reports: Coronary Artery Bypass, Coronary Artery Stent, Other (See Below) Other Cardiovascular Surgeries/Procedures: CABG x 2 on December 06, 2016. Respiratory Surgical History: Reports: None GI Surgical History: Reports: Appendectomy, Colonoscopy, EGD Female Surgical History: Reports: Hysterectomy, Other (See Below) Other Female Surgeries/Procedures: hx of post menopausal problems, removed a growth Endocrine Surgical History: Reports: None Neurological Surgical History: Reports: None Musculoskeletal Surgical History: Reports: None Oncologic Surgical History: Reports: None Dermatological Surgical History: Reports: Skin Biopsy Social & Family History - Family History Family Medical History: Noncontributory - Tobacco Use Smoking Status *Q: Current Some Day Smoker Years of Tobacco use: 58 Packs/Tins Daily: 1 - Caffeine Use Caffeine Use: Reports: Coffee, Soda, Tea Caffeine Use Comment: COFFEE & DIET COKE OCCASSIONALLY - Recreational Drug Use Recreational Drug Use: No - Living Situation & Occupation Living situation: Reports: , Alone Occupation: Retired ED ROS GENERAL - Review of Systems Review Of Systems: ROS reveals no pertinent complaints other than HPI. ED EXAM, GENERAL - Physical Exam Exam: See Below Exam Limited By: No Limitations General Appearance: Alert, WD/WN, No Apparent Distress Eye Exam: Bilateral Eye: EOMI, Normal Inspection Ears: Normal External Exam, Hearing Grossly Normal Nose: Normal Inspection Throat/Mouth: Normal Inspection, Normal Voice, No Airway Compromise Head: Atraumatic, Normocephalic Neck: Normal Inspection Respiratory/Chest: No Respiratory Distress, Rhonchi (right middle to lower lobes ) Cardiovascular: Normal Peripheral Pulses, No Edema, No Gallop, No JVD, Bradycardia, Irregularly Irregular Peripheral Pulses: 1+: Radial (L), Radial (R) GI/Abdominal: Normal Bowel Sounds, Soft, Non-Tender (Female) Exam: Deferred Rectal (Female) Exam: Deferred Back Exam: Normal Inspection, Full Range of Motion, NT Extremities: Normal Inspection, Normal Range of Motion, Non-Tender, Normal Capillary Refill, No Pedal Edema Neurological: Alert, Oriented, Normal Cognition, Normal Gait, No Motor/Sensory Deficits Psychiatric: Normal Affect, Normal Mood Skin Exam: Warm, Dry, Intact, Normal Color, No Rash Lymphatic: No Adenopathy EKG INTERPRETATION EKG Date: 02/09/18 Time: 18:48 Rhythm: Other P-Wave: Variable QRS: LBBB Comparison: NA - No Prior EKG Course - Vital Signs Last Recorded V/S: Last Vital Signs Temp 97.2 F 02/09/18 21:22 Pulse 70 02/09/18 21:22 Resp 16 02/09/18 21:22 BP 157/34 H 02/09/18 21:22 Pulse Ox 95 02/09/18 21:22 - Orders/Labs/Meds Orders: Active Orders 24 hr Category Date Time Status Peripheral IV Care [RC] . DIRECTED Care 02/09/18 19:06 Active Sodium Chloride 0.9% [Saline Flush] Med 02/09/18 19:05 Active 10 ml FLUSH ASDIRECTED PRN Peripheral IV Insertion Adult [OM.PC] Stat Oth 02/09/18 19:06 Ordered Medication Orders Acetaminophen (Tylenol) 650 mg PO Q4H PRN PRN Reason: Pain (Mild 1-3)/fever Albuterol (Proventil Hfa) 0 gm INH Q6H PRN PRN Reason: Wheezing Albuterol/Ipratropium (Duoneb 3.0-0.5 Mg/3 Ml) 3 ml NEB Q4H PRN PRN Reason: shortness of breath/wheezing Aspirin (Halfprin) 81 mg PO DAILY [facility] Calcium Carbonate (Calcium Carbonate/Vitamin D 1250 Mg-200 Unit) 1 tab PO DAILY [facility] Docusate Sodium (Colace) 100 mg PO BID PRN PRN Reason: Constipation Last Admin: 02/09/18 22:04 Dose: 100 mg Furosemide (Lasix) 20 mg PO DAILY [facility] Heparin Sodium (Porcine) (Heparin Sodium) 5,000 units SUBCUT Q12H JOSE Last Admin: 02/09/18 22:03 Dose: 5,000 units Sodium Chloride (Normal Saline) 1,000 mls @ 75 mls/hr IV ASDIRECTED JOSE Last Admin: 02/09/18 22:02 Dose: 75 mls/hr Lisinopril (Prinivil) 20 mg PO DAILY [facility] Magnesium Hydroxide (Milk Of Magnesia) 30 ml PO Q12H PRN PRN Reason: Constipation Metoprolol Succinate (Toprol Xl) 50 mg PO DAILY [facility] Mometasone Furoate/Formoterol Fumar (Dulera 200-5 Mcg) 0 puff IH DAILY [facility] Multivitamins (Thera) 1 each PO DAILY [facility] Non-Formulary Medication (Bioflav,Lemon/Vit Bcomp&C [Lipo-Flavonoid Plus Caplet] ) 1 each PO .PRN PRN PRN Reason: VERTIGO Ondansetron HCl (Zofran) 4 mg IVPUSH Q6H PRN PRN Reason: Nausea/Vomiting Rosuvastatin Calcium (Crestor) 20 mg PO BEDTIME [facility] Sodium Chloride (Saline Flush) 10 ml FLUSH ASDIRECTED PRN PRN Reason: Keep Vein Open Last Admin: 02/09/18 18:58 Dose: 10 ml Labs: Laboratory Tests 02/09/18 02/09/18 02/09/18 Range/Units 18:58 18:58 18:58 WBC 9.0 (5.0-10.0) 10^3/uL RBC 4.79 (4.2-5.4) 10^6/uL Hgb 14.5 D (12.0-16.0) g/dL Hct 44.9 (37.0-47.0) % MCV 93.7 (80-100) fL MCH 30.3 (27.0-34.0) pg MCHC 32.3 L (33.0-35.0) g/dL Plt Count 152 (150-450) 10^3/uL Neut % (Auto) 64.4 (42.2-75.2) % Lymph % (Auto) 21.0 (20.5-50.1) % [place] % (Auto) 11.6 H (2-8) % Eos % (Auto) 2.7 (1.0-3.0) % Baso % (Auto) 0.3 (0.0-1.0) % PT (9.0-12.0) SEC INR (0.9-1.2) Sodium 139 (135-145) mmol/L Potassium 4.1 (3.6-5.0) mmol/L Chloride 99 L (101-111) mmol/L Carbon Dioxide 33.0 H (21.0-31.0) mmol/L Anion Gap 11.1 BUN 14 (7-18) mg/dL Creatinine 0.9 (0.6-1.3) mg/dL Est Cr Clr Drug Dosing 43.99 mL/min Estimated GFR (MDRD) > 60 BUN/Creatinine Ratio 15.55 Glucose 116 H (74-105) mg/dL Calcium 9.0 (8.4-10.2) mg/dl Phosphorus (2.5-4.6) mg/dL Magnesium (1.8-2.5) mg/dL Total Bilirubin 0.5 (0.2-1.0) mg/dL AST 20 (10-42) IU/L ALT 14 (10-60) IU/L Alkaline Phosphatase 83 (42-121) IU/L Troponin I < 0.02 (0.00-0.02) ng/ml B-Natriuretic Peptide 149 H (0-100) pg/ml Total Protein 7.0 (6.7-8.2) g/dl Albumin 4.1 (3.2-5.5) g/dl Globulin 2.9 Albumin/Globulin Ratio 1.41 Urine Color (YELLOW) Urine Appearance (CLEAR) Urine pH (5.0-9.0) Ur Specific [place] (1.005-1.030) Urine Protein (NEGATIVE) Urine Glucose (UA) (NEGATIVE) Urine Ketones (NEGATIVE) Urine Occult Blood (NEGATIVE) Urine Nitrite (NEGATIVE) Urine Bilirubin (NEGATIVE) Urine Urobilinogen (0.2-1.0) mg/dL Ur Leukocyte Esterase (NEGATIVE) Urine RBC /HPF Urine WBC (0-5/HPF) /HPF Ur Epithelial Cells /HPF Amorphous Sediment (0/HPF) /HPF Urine Bacteria (0-FEW/HPF) /HPF 02/09/18 02/09/18 02/09/18 Range/Units 18:58 18:58 19:21 WBC (5.0-10.0) 10^3/uL RBC (4.2-5.4) 10^6/uL Hgb (12.0-16.0) g/dL Hct (37.0-47.0) % MCV (80-100) fL MCH (27.0-34.0) pg MCHC (33.0-35.0) g/dL Plt Count (150-450) 10^3/uL Neut % (Auto) (42.2-75.2) % Lymph % (Auto) (20.5-50.1) % [place] % (Auto) (2-8) % Eos % (Auto) (1.0-3.0) % Baso % (Auto) (0.0-1.0) % PT 9.7 (9.0-12.0) SEC INR 1.0 (0.9-1.2) Sodium (135-145) mmol/L Potassium (3.6-5.0) mmol/L Chloride (101-111) mmol/L Carbon Dioxide (21.0-31.0) mmol/L Anion Gap BUN (7-18) mg/dL Creatinine (0.6-1.3) mg/dL Est Cr Clr Drug Dosing mL/min Estimated GFR (MDRD) BUN/Creatinine Ratio Glucose (74-105) mg/dL Calcium (8.4-10.2) mg/dl Phosphorus 3.6 (2.5-4.6) mg/dL Magnesium 2.2 (1.8-2.5) mg/dL Total Bilirubin (0.2-1.0) mg/dL AST (10-42) IU/L ALT (10-60) IU/L Alkaline Phosphatase (42-121) IU/L Troponin I (0.00-0.02) ng/ml B-Natriuretic Peptide (0-100) pg/ml Total Protein (6.7-8.2) g/dl Albumin (3.2-5.5) g/dl Globulin Albumin/Globulin Ratio Urine Color (YELLOW) Urine Appearance (CLEAR) Urine pH (5.0-9.0) Ur Specific [place] (1.005-1.030) Urine Protein (NEGATIVE) Urine Glucose (UA) (NEGATIVE) Urine Ketones (NEGATIVE) Urine Occult Blood (NEGATIVE) Urine Nitrite (NEGATIVE) Urine Bilirubin (NEGATIVE) Urine Urobilinogen (0.2-1.0) mg/dL Ur Leukocyte Esterase (NEGATIVE) Urine RBC /HPF Urine WBC (0-5/HPF) /HPF Ur Epithelial Cells /HPF Amorphous Sediment (0/HPF) /HPF Urine Bacteria (0-FEW/HPF) /HPF //18 Range/Units 20:28 WBC (5.0-10.0) 10^3/uL RBC (4.2-5.4) 10^6/uL Hgb (12.0-16.0) g/dL Hct (37.0-47.0) % MCV (80-100) fL MCH (27.0-34.0) pg MCHC (33.0-35.0) g/dL Plt Count (150-450) 10^3/uL Neut % (Auto) (42.2-75.2) % Lymph % (Auto) (20.5-50.1) % [place] % (Auto) (2-8) % Eos % (Auto) (1.0-3.0) % Baso % (Auto) (0.0-1.0) % PT (9.0-12.0) SEC INR (0.9-1.2) Sodium (135-145) mmol/L Potassium (3.6-5.0) mmol/L Chloride (101-111) mmol/L Carbon Dioxide (21.0-31.0) mmol/L Anion Gap BUN (7-18) mg/dL Creatinine (0.6-1.3) mg/dL Est Cr Clr Drug Dosing mL/min Estimated GFR (MDRD) BUN/Creatinine Ratio Glucose (74-105) mg/dL Calcium (8.4-10.2) mg/dl Phosphorus (2.5-4.6) mg/dL Magnesium (1.8-2.5) mg/dL Total Bilirubin (0.2-1.0) mg/dL AST (10-42) IU/L ALT (10-60) IU/L Alkaline Phosphatase (42-121) IU/L Troponin I (0.00-0.02) ng/ml B-Natriuretic Peptide (0-100) pg/ml Total Protein (6.7-8.2) g/dl Albumin (3.2-5.5) g/dl Globulin Albumin/Globulin Ratio Urine Color Yellow (YELLOW) Urine Appearance Slightly cloudy (CLEAR) Urine pH 7.5 (5.0-9.0) Ur Specific [place] 1.010 (1.005-1.030) Urine Protein Negative (NEGATIVE) Urine Glucose (UA) Negative (NEGATIVE) Urine Ketones Negative (NEGATIVE) Urine Occult Blood Negative (NEGATIVE) Urine Nitrite Negative (NEGATIVE) Urine Bilirubin Negative (NEGATIVE) Urine Urobilinogen 0.2 (0.2-1.0) mg/dL Ur Leukocyte Esterase Trace H (NEGATIVE) Urine RBC 5-10 H /HPF Urine WBC 0-5 (0-5/HPF) /HPF Ur Epithelial Cells Rare /HPF Amorphous Sediment Rare (0/HPF) /HPF Urine Bacteria Rare (0-FEW/HPF) /HPF Meds: Medications Generic Name Dose Route Start Last Admin Trade Name Freq PRN Reason Stop Dose Admin Acetaminophen 650 mg 02/09/18 21:22 Tylenol PO Q4H PRN Pain (Mild 1-3)/fever Albuterol 0 gm 02/09/18 21:55 Proventil Hfa INH Q6H PRN Wheezing Albuterol/Ipratropium 3 ml 02/09/18 21:22 Duoneb 3.0-0.5 Mg/3 Ml NEB Q4H PRN shortness of breath/wheezing Aspirin 81 mg 02/10/18 09:00 Halfprin PO DAILY JOSE Calcium Carbonate 1 tab 02/10/18 09:00 Calcium Carbonate/Vitamin D 1250 Mg-200 Unit PO DAILY [facility] Docusate Sodium 100 mg 02/09/18 21:22 02/09/18 22:04 Colace PO 100 mg BID PRN Administration Constipation Furosemide 20 mg 02/10/18 09:00 Lasix PO DAILY [facility] Heparin Sodium (Porcine) 5,000 units 02/09/18 21:00 02/09/18 22:03 Heparin Sodium SUBCUT 5,000 units Q12H JOSE Administration Sodium Chloride 1,000 mls @ 75 mls/hr 02/09/18 21:30 02/09/18 22:02 Normal Saline IV 75 mls/hr ASDIRECTED JOSE Administration Lisinopril 20 mg 02/10/18 09:00 Prinivil PO DAILY [facility] Magnesium Hydroxide 30 ml 02/09/18 21:22 Milk Of Magnesia PO Q12H PRN Constipation Metoprolol Succinate 50 mg 02/10/18 09:00 Toprol Xl PO DAILY [facility] Mometasone Furoate/Formoterol Fumar 0 puff 02/10/18 09:00 Dulera 200-5 Mcg IH DAILY [facility] Multivitamins 1 each 02/10/18 09:00 Thera PO DAILY [facility] Non-Formulary Medication 1 each 02/09/18 21:55 Bioflav,Lemon/Vit Bcomp&C [Lipo-Flavonoid Plus Caplet] PO .PRN PRN VERTIGO Ondansetron HCl 4 mg 02/09/18 21:22 Zofran IVPUSH Q6H PRN Nausea/Vomiting Rosuvastatin Calcium 20 mg 02/10/18 21:00 Crestor PO BEDTIME [facility] Sodium Chloride 10 ml 02/09/18 19:05 02/09/18 18:58 Saline Flush FLUSH 10 ml ASDIRECTED PRN Administration Keep Vein Open Discontinued Medications Generic Name Dose Route Start Last Admin Trade Name Freq PRN Reason Stop Dose Admin Acetaminophen 650 mg 02/09/18 19:47 02/09/18 19:52 Tylenol PO 02/09/18 19:48 650 mg NOW ONE Administration - Radiology Interpretation Free Text/Narrative:: Chest xray: IMPRESSION: 1. The lungs are hyperinflated, consistent with underlying small airways disease. The vasculature demonstrates diffuse moderate atherosclerotic calcification. 2. Mild interstitial prominence bilaterally. Thank you for allowing us to participate in the care of your patient. See Rad report Departure - Departure Time of Disposition: 20:24 Disposition: Refer to Observation Condition: Fair Clinical Impression: New onset atrial fibrillation - My Orders Last 24 Hours: My Active Orders 02/09/18 19:05 Sodium Chloride 0.9% [Saline Flush] 10 ml FLUSH ASDIRECTED PRN 02/09/18 19:06 Peripheral IV Care [RC] . DIRECTED Peripheral IV Insertion Adult [OM.PC] Stat - Assessment/Plan Last 24 Hours: My Active Orders 02/09/18 19:05 Sodium Chloride 0.9% [Saline Flush] 10 ml FLUSH ASDIRECTED PRN 02/09/18 19:06 Peripheral IV Care [RC] . DIRECTED Peripheral IV Insertion Adult [OM.PC] Stat
[2018-02-09] MEDS ORDERED: Docusate Sodium 100 MG Cap PO PRN (21:22)
[2018-02-09] MEDS ORDERED: Acetaminophen 325 MG Tab PO PRN (21:22)
[2018-02-09] MEDS ORDERED: Albuterol/Ipratropium 3.0-0.5 MG/3 ML Neb Soln NEB PRN (21:22)
[2018-02-09] MEDS ORDERED: Magnesium Hydroxide 400 MG/5 ML Susp 30 ML Cup PO PRN (21:22)
[2018-02-09] MEDS ORDERED: Ondansetron 4 MG/2 ML SDV IVPUSH PRN (21:22)
[2018-02-09] MEDS ORDERED: Sodium Chloride 0.9% 1,000 ML IV SCH (21:30)
--- NOTE | 2018-02-09 21:46 | PCM.HP ---
H&P History of Present Illness - General Date of Service: 02/09/18 Admit Problem/Dx: Admission Diagnosis/Problem Admission Diagnosis/Problem Atrial fibrillation or flutter Source of Information: Patient History Limitations: Reports: No Limitations - History of Present Illness Initial Comments - Free Text/Narative: Jenna Wheeler is 77 y/o F with PMH significant for ?A-fib, hypertension, dyslipidemia, moderate chronic obstructive pulmonary disease on oxygen at nighttime, history of tobacco use, coronary artery disease with CABG in 2017. She presented brittney the ER because of palpitation. Patient said she was well today until she above started. She felt her heart was racing. She took her BP at home and it was 180/85 so she decided to come to the ER. She denied any associated symptom. No chest pain, SOB, dizziness, diaphoresis, N/V. She has no fever, chills, abdominal pain, diarrhea. No melena or hematochezia. She took a few cup of coffee but that is what she take every day. In the ER patient was apparently in A-fib with rate in the 40s but converted spontaneously to sinus rhythm at 77. Hospitalist was consulted for admission. Onset of Symptoms: Reports: Sudden Duration of Symptoms: Reports: Hour(s): Quality: Reports: Other Severity: Moderate Improves with: Reports: None Worsens with: Reports: None Context: Reports: Activity/Exercise, Exertion, Rest Associated Symptoms: Reports: Other (dizziness) Frontal Head Pain Score (Numeric/FACES): 8 - Related Data Allergies/Adverse Reactions: Allergies Allergy/AdvReac Type Severity Reaction Status Date / Time environmental allergies Allergy Sneezing Uncoded 02/09/18 21:00 Home Medications: Home Meds Bioflav,Lemon/Vit BComp&C [Lipo-Flavonoid Plus Caplet] 1 each PO .PRN PRN [History] Calcium Carbonate/Vitamin D3 [Calcium 500-Vit D3 200 Caplet] 1 tab PO DAILY [History] Rosuvastatin [Crestor] 20 mg PO BEDTIME 08/09/16 [History] Albuterol [Proventil Neb Soln] 2.5 mg NEB .PRN PRN 12/11/16 [History] Ipratropium [Atrovent] 1 inh INH Q4HRRT PRN 12/11/16 [History] Multivitamin [Multiple Vitamins] 1 tab PO DAILY 12/11/16 [History] Fluticasone/Vilanterol [Breo Ellipta 100-25 MCG Inhalation Kit] 1 puff INH DAILY 12/16/16 [History] Aspirin [Ecotrin] 81 mg PO DAILY 12/27/16 [History] Furosemide [Lasix] 20 mg PO DAILY 01/08/17 [History] Metoprolol Succinate 50 mg PO DAILY 01/14/17 [History] Lisinopril [Prinivil] 20 mg PO DAILY 02/13/17 [History] Albuterol [Ventolin HFA] 2 puff INH Q6H PRN 09/26/17 [History] Bisacodyl [Dulcolax] 5 mg PO DAILY PRN 09/29/17 [History] Past Medical History HEENT History: Reports: Impaired Vision, Other (See Below) Other HEENT History: wears glasses Cardiovascular History: Reports: Bypass, CAD, High Cholesterol, Hypertension, ND , Stents Other Cardiovascular History: Coronary artery bypass grafting x2. left internal mammary artery to the left anterior descending artery. Sphenous vein graft to the first obtuse marginal branch. Hx of edema Respiratory History: Reports: Bronchitis, Recurrent, COPD Gastrointestinal History: Reports: None Genitourinary History: Reports: Renal Disease, Other (See Below) Other Genitourinary History: Chronic kidney disease-mineral and bone disorder. Chronic kidney disease state 3. Acute kidney injury. Microalbuminuria [employer] History: Reports: , Other (See Below) Other OB/BYN History: pap smear abnormality of cervix Musculoskeletal History: Reports: Arthritis, Other (See Below) Other Musculoskeletal History: DEXA scan Neurological History: Reports: Vertigo, Other (See Below) Other Neuro History: Benign positional vertigo Psychiatric History: Reports: None Endocrine/Metabolic History: Reports: Obesity/BMI 30+ Hematologic History: Reports: Other (See Below) Immunologic History: Reports: None Oncologic (Cancer) History: Reports: Other (See Below) Other Oncologic History: skin Dermatologic History: Reports: Other (See Below) Other Dermatologic History: skin cancer - Infectious Disease History Infectious Disease History: Reports: Chicken Pox, Measles - Past Surgical History Head Surgeries/Procedures: Reports: None HEENT Surgical History: Reports: Cataract Surgery, Tonsillectomy Other HEENT Surgeries/Procedures: LENS IMPLANT BILAT EYES Cardiovascular Surgical History: Reports: Coronary Artery Bypass, Coronary Artery Stent, Other (See Below) Other Cardiovascular Surgeries/Procedures: CABG x 2 on December 06, 2016. Respiratory Surgical History: Reports: None GI Surgical History: Reports: Appendectomy, Colonoscopy, EGD Female Surgical History: Reports: Hysterectomy, Other (See Below) Other Female Surgeries/Procedures: hx of post menopausal problems, removed a growth Endocrine Surgical History: Reports: None Neurological Surgical History: Reports: None Musculoskeletal Surgical History: Reports: None Oncologic Surgical History: Reports: None Dermatological Surgical History: Reports: Skin Biopsy Social & Family History - Family History Family Medical History: Noncontributory - Tobacco Use Smoking Status *Q: Current Some Day Smoker Years of Tobacco use: 50 Packs/Tins Daily: 1 Second Hand Smoke Exposure: No - Caffeine Use Caffeine Use: Reports: None Caffeine Use Comment: COFFEE & DIET COKE OCCASSIONALLY - Recreational Drug Use Recreational Drug Use: No - Living Situation & Occupation Living situation: Reports: , Alone Occupation: Retired H&P Review of Systems - Review of Systems: Review Of Systems: See Below General: Reports: No Symptoms HEENT: Reports: No Symptoms Pulmonary: Reports: No Symptoms Cardiovascular: Reports: No Symptoms Gastrointestinal: Reports: No Symptoms Genitourinary: Reports: No Symptoms Musculoskeletal: Reports: No Symptoms Skin: Reports: No Symptoms Psychiatric: Reports: No Symptoms Neurological: Reports: No Symptoms Hematologic/Lymphatic: Reports: No Symptoms Immunologic: Reports: No Symptoms Exam - Exam Exam: See Below - Vital Signs Vital Signs: Last Vital Signs Temp 97.4 F 02/09/18 18:58 Pulse 95 02/09/18 18:58 Resp 15 02/09/18 18:58 BP 180/68 H 02/09/18 18:58 Pulse Ox 93 L 02/09/18 18:58 Weight: 165 lb 12.8 oz - Exam Quality Assessment: DVT Prophylaxis General: Alert, Oriented, 4 HEENT: PERRLA, Hearing Intact, Mucosa Moist & Mather, Nares Patent, Normal Nasal Septum, Posterior Pharynx Clear, Conjunctiva Clear, EOMI, EACs Clear, TMs Clear Neck: Supple, Trachea Midline, 2 Lungs: Clear to Auscultation, Normal Respiratory Effort Cardiovascular: Regular Rate, Regular Rhythm GI/Abdominal Exam: Normal Bowel Sounds, Soft, Non-Tender, No Organomegaly, No Distention, No Abnormal Bruit, No Mass, Pelvis Stable (Female) Exam: Normal External Exam, Normal Speculum Exam, Normal Bimanual Exam Rectal (Female) Exam: Normal Exam, Normal Rectal Tone Back Exam: Normal Inspection, Full Range of Motion, NT Extremities: Normal Inspection, Normal Range of Motion, Non-Tender, No Pedal Edema, Normal Capillary Refill Skin: Warm, Dry, Intact Neurological: Cranial Nerves Intact, Reflexes Equal Bilateral Neuro Extensive - Mental Status: Alert, Oriented x3, Normal Mood/Affect, Normal Cognition Neuro Extensive - Motor, Sensory, Reflexes: CN II-XII Intact, Normal Gait, Normal Reflexes Psychiatric: Alert, Normal Affect, Normal Mood - Patient Data Lab Results Last 24 hrs: Laboratory Results - last 24 hr 02/09/18 02/09/18 02/09/18 Range/Units 18:58 18:58 18:58 WBC 9.0 (5.0-10.0) 10^3/uL RBC 4.79 (4.2-5.4) 10^6/uL Hgb 14.5 D (12.0-16.0) g/dL Hct 44.9 (37.0-47.0) % MCV 93.7 (80-100) fL MCH 30.3 (27.0-34.0) pg MCHC 32.3 L (33.0-35.0) g/dL Plt Count 152 (150-450) 10^3/uL Neut % (Auto) 64.4 (42.2-75.2) % Lymph % (Auto) 21.0 (20.5-50.1) % Hughes % (Auto) 11.6 H (2-8) % Eos % (Auto) 2.7 (1.0-3.0) % Baso % (Auto) 0.3 (0.0-1.0) % PT (9.0-12.0) SEC INR (0.9-1.2) Sodium 139 (135-145) mmol/L Potassium 4.1 (3.6-5.0) mmol/L Chloride 99 L (101-111) mmol/L Carbon Dioxide 33.0 H (21.0-31.0) mmol/L Anion Gap 11.1 BUN 14 (7-18) mg/dL Creatinine 0.9 (0.6-1.3) mg/dL Est Cr Clr Drug Dosing 43.99 mL/min Estimated GFR (MDRD) > 60 BUN/Creatinine Ratio 15.55 Glucose 116 H (74-105) mg/dL Calcium 9.0 (8.4-10.2) mg/dl Magnesium (1.8-2.5) mg/dL Total Bilirubin 0.5 (0.2-1.0) mg/dL AST 20 (10-42) IU/L ALT 14 (10-60) IU/L Alkaline Phosphatase 83 (42-121) IU/L Troponin I < 0.02 (0.00-0.02) ng/ml B-Natriuretic Peptide 149 H (0-100) pg/ml Total Protein 7.0 (6.7-8.2) g/dl Albumin 4.1 (3.2-5.5) g/dl Globulin 2.9 Albumin/Globulin Ratio 1.41 Urine Color (YELLOW) Urine Appearance (CLEAR) Urine pH (5.0-9.0) Ur Specific [place] (1.005-1.030) Urine Protein (NEGATIVE) Urine Glucose (UA) (NEGATIVE) Urine Ketones (NEGATIVE) Urine Occult Blood (NEGATIVE) Urine Nitrite (NEGATIVE) Urine Bilirubin (NEGATIVE) Urine Urobilinogen (0.2-1.0) mg/dL Ur Leukocyte Esterase (NEGATIVE) Urine RBC /HPF Urine WBC (0-5/HPF) /HPF Ur Epithelial Cells /HPF Amorphous Sediment (0/HPF) /HPF Urine Bacteria (0-FEW/HPF) /HPF 02/09/18 02/09/18 02/09/18 Range/Units 18:58 19:21 20:28 WBC (5.0-10.0) 10^3/uL RBC (4.2-5.4) 10^6/uL Hgb (12.0-16.0) g/dL Hct (37.0-47.0) % MCV (80-100) fL MCH (27.0-34.0) pg MCHC (33.0-35.0) g/dL Plt Count (150-450) 10^3/uL Neut % (Auto) (42.2-75.2) % Lymph % (Auto) (20.5-50.1) % Hughes % (Auto) (2-8) % Eos % (Auto) (1.0-3.0) % Baso % (Auto) (0.0-1.0) % PT 9.7 (9.0-12.0) SEC INR 1.0 (0.9-1.2) Sodium (135-145) mmol/L Potassium (3.6-5.0) mmol/L Chloride (101-111) mmol/L Carbon Dioxide (21.0-31.0) mmol/L Anion Gap BUN (7-18) mg/dL Creatinine (0.6-1.3) mg/dL Est Cr Clr Drug Dosing mL/min Estimated GFR (MDRD) BUN/Creatinine Ratio Glucose (74-105) mg/dL Calcium (8.4-10.2) mg/dl Magnesium 2.2 (1.8-2.5) mg/dL Total Bilirubin (0.2-1.0) mg/dL AST (10-42) IU/L ALT (10-60) IU/L Alkaline Phosphatase (42-121) IU/L Troponin I (0.00-0.02) ng/ml B-Natriuretic Peptide (0-100) pg/ml Total Protein (6.7-8.2) g/dl Albumin (3.2-5.5) g/dl Globulin Albumin/Globulin Ratio Urine Color Yellow (YELLOW) Urine Appearance Slightly cloudy (CLEAR) Urine pH 7.5 (5.0-9.0) Ur Specific [place] 1.010 (1.005-1.030) Urine Protein Negative (NEGATIVE) Urine Glucose (UA) Negative (NEGATIVE) Urine Ketones Negative (NEGATIVE) Urine Occult Blood Negative (NEGATIVE) Urine Nitrite Negative (NEGATIVE) Urine Bilirubin Negative (NEGATIVE) Urine Urobilinogen 0.2 (0.2-1.0) mg/dL Ur Leukocyte Esterase Trace H (NEGATIVE) Urine RBC 5-10 H /HPF Urine WBC 0-5 (0-5/HPF) /HPF Ur Epithelial Cells Rare /HPF Amorphous Sediment Rare (0/HPF) /HPF Urine Bacteria Rare (0-FEW/HPF) /HPF Result Diagrams: 02/09/18 18:58 02/09/18 18:58 Problem List Initiated/Reviewed/Updated: Yes Orders Last 24hrs: Active Orders 24 hr Category Date Time Status Patient Status [ADT] Routine ADT 02/09/18 21:22 Ordered Ambulate [RC] ASDIRECTED Care 02/09/18 21:22 Ordered Cardiac Monitoring [RC] CONTINUOUS Care 02/09/18 21:30 Ordered EKG 12 Lead [EKG Documentation Completion] [RC] STAT Care 02/09/18 19:00 Active EKG 12 Lead [EKG Documentation Completion] [RC] STAT Care 02/09/18 19:01 Active EKG 12 Lead [EKG Documentation Completion] [RC] STAT Care 02/09/18 20:49 Active Oxygen Therapy [RC] PRN Care 02/09/18 21:22 Ordered Peripheral IV Care [RC] . DIRECTED Care 02/09/18 19:06 Active RT Aerosol Therapy [RC] ASDIRECTED Care 02/09/18 21:34 Ordered VTE/DVT Education [RC] PER UNIT ROUTINE Care 02/09/18 21:22 Ordered Vital Signs [RC] Q4H Care 02/09/18 21:22 Ordered Heart Healthy Diet [DIET] Diet 02/09/18 Breakfast Ordered Chest 1V Frontal [CR] Stat Exams 02/09/18 19:05 Taken BASIC METABOLIC PANEL,BMP [CHEM] DAILY Lab 02/10/18 07:00 Ordered PHOSPHORUS [CHEM] Stat Lab 02/09/18 21:22 Ordered Acetaminophen [Tylenol] Med 02/09/18 21:22 Ordered 650 mg PO Q4H PRN Albuterol/Ipratropium [DuoNeb 3.0-0.5 MG/3 ML] Med 02/09/18 21:22 Ordered 3 ml NEB Q4H PRN Docusate Sodium [Colace] Med 02/09/18 21:22 Ordered 100 mg PO BID PRN Heparin Sodium Med 02/09/18 21:30 Ordered 5,000 units SUBCUT Q12H Magnesium Hydroxide [Milk of Magnesia] Med 02/09/18 21:22 Ordered 30 ml PO Q12H PRN Ondansetron [Zofran] Med 02/09/18 21:22 Ordered 4 mg IVPUSH Q6H PRN Sodium Chloride 0.9% [Normal Saline] 1,000 ml Med 02/09/18 21:30 Ordered IV ASDIRECTED Sodium Chloride 0.9% [Saline Flush] Med 02/09/18 19:05 Active 10 ml FLUSH ASDIRECTED PRN Peripheral IV Insertion Adult [OM.PC] Stat Oth 02/09/18 19:06 Ordered Resuscitation Status Routine Resus Stat 02/09/18 21:22 Ordered Medication Orders Acetaminophen (Tylenol) 650 mg PO Q4H PRN PRN Reason: Pain (Mild 1-3)/fever Albuterol/Ipratropium (Duoneb 3.0-0.5 Mg/3 Ml) 3 ml NEB Q4H PRN PRN Reason: shortness of breath/wheezing Docusate Sodium (Colace) 100 mg PO BID PRN PRN Reason: Constipation Heparin Sodium (Porcine) (Heparin Sodium) 5,000 units SUBCUT Q12H JOSE Sodium Chloride (Normal Saline) 1,000 mls @ 75 mls/hr IV ASDIRECTED JOSE Magnesium Hydroxide (Milk Of Magnesia) 30 ml PO Q12H PRN PRN Reason: Constipation Ondansetron HCl (Zofran) 4 mg IVPUSH Q6H PRN PRN Reason: Nausea/Vomiting Sodium Chloride (Saline Flush) 10 ml FLUSH ASDIRECTED PRN PRN Reason: Keep Vein Open Last Admin: 02/09/18 18:58 Dose: 10 ml Assessment/Plan Comment:: A-fib Unclear if this is new on set Patient presented with palpitation She spontaneously converted to sinus rhythm in the ER She is asymptomatic at this time admit to observational status monitor on telemetry repeat ekg patient on metoprolol succinate. continue Hypertension Not at goal at presentation will reconcile home medication and adjust as needed monitor BP closely Coronary artery disease with CABG in 2017 stable continue home medication Dyslipidemia continue home medication Chronic obstructive pulmonary disease on oxygen at nighttime stable Duo-nebs prn History of tobacco use advised to quit
[2018-02-09] MEDS ORDERED: Albuterol 6.7 GM Inhaler INH PRN (21:55)
[2018-02-09] MEDS ORDERED: [UNRECOGNIZED DRUG - OTHER] PO PRN (21:55)
[2018-02-09] MEDS: Heparin Sodium 5,000 Units/ML Vial SUBCUT SCH (22:03)
[2018-02-10 06:53] LABS: CHLORIDE,CL 104 mmol/L (101-111); SODIUM,NA 139 mmol/L (135-145)
[2018-02-10] MEDS: Heparin Sodium 5,000 Units/ML Vial SUBCUT SCH (08:37)
[2018-02-10] MEDS: Formoterol/Mometasone 200-5 MCG 8.8 GM Inhaler IH SCH ×2 (08:38→08:41)
[2018-02-10] MEDS ORDERED: Lisinopril 20 MG Tab PO SCH (09:00)
[2018-02-10] MEDS ORDERED: Metoprolol Succinate 50 MG Tab.ER PO SCH (09:00)
[2018-02-10] MEDS ORDERED: Aspirin 81 MG Tab.EC PO SCH (09:00)
[2018-02-10] MEDS ORDERED: Calcium Carbonate/Vitamin D3 1250 MG-200 Unit Tab PO SCH (09:00)
[2018-02-10] MEDS ORDERED: Multivitamins,Therapeutic Tab PO SCH (09:00)
[2018-02-10] MEDS ORDERED: Furosemide 20 MG Tab PO SCH (09:00)
[2018-02-10 10:30] VITALS: BP 135/42
--- NOTE | 2018-02-10 12:00 | PCM.DCSUM1 ---
Discharge Summary - Hospital Course HPI Initial Comments: Jenna Wheeler is 77 y/o F with PMH significant for ?A-fib, hypertension, dyslipidemia, moderate chronic obstructive pulmonary disease on oxygen at nighttime, history of tobacco use, coronary artery disease with CABG in 2017. She presented brittney the ER because of palpitation. In the ER, she was found to be in A-fib with rate in the 40s but converted spontaneously to sinus rhythm at 77. She was admitted and monitored on telemetry. Had uneventful night. Patient had few episode of brdaycardia but this were not sustaining. Her HR this morning was in the 60s. Patient denies any complaints. No chest pain, SOB, palpitations, dizziness. She is being discharge home. She will follow up with PCP and cardiology. Patient is on ASA and metoprolol and is advised to continue. Diagnosis: Stroke: No - Discharge Data Discharge Date: 02/10/18 Discharge Disposition: Home, Self-Care 01 Condition: Stable - Patient Summary/Data Recommended Follow-up Testing/Procedures: Follow up with PCP tomorrow. - Patient Instructions Diet: Heart Healthy Diet Activity: As Tolerated Notify Provider of: Fever, Nausea and/or Vomiting - Discharge Plan Home Medications: Home Meds Bioflav,Lemon/Vit BComp&C [Lipo-Flavonoid Plus Caplet] 1 each PO .PRN PRN [History] Calcium Carbonate/Vitamin D3 [Calcium 500-Vit D3 200 Caplet] 1 tab PO DAILY [History] Rosuvastatin [Crestor] 20 mg PO BEDTIME 08/09/16 [History] Albuterol [Proventil Neb Soln] 2.5 mg NEB .PRN PRN 12/11/16 [History] Ipratropium [Atrovent] 1 inh INH Q4HRRT PRN 12/11/16 [History] Multivitamin [Multiple Vitamins] 1 tab PO DAILY 12/11/16 [History] Fluticasone/Vilanterol [Breo Ellipta 100-25 MCG Inhalation Kit] 1 puff INH DAILY 12/16/16 [History] Aspirin [Ecotrin] 81 mg PO DAILY 12/27/16 [History] Furosemide [Lasix] 20 mg PO DAILY 01/08/17 [History] Metoprolol Succinate 50 mg PO DAILY 01/14/17 [History] Lisinopril [Prinivil] 20 mg PO DAILY 02/13/17 [History] Albuterol [Ventolin HFA] 2 puff INH Q6H PRN 09/26/17 [History] Bisacodyl [Dulcolax] 5 mg PO DAILY PRN 09/29/17 [History] Patient Handouts: Atrial Fibrillation, [id number] Forms: ED Department Discharge Referrals: PCP,None [Primary Care Provider] - - Discharge Summary/Plan Comment DC Time >30 min.: Yes - General Info Admission Dx/Problem (Free Text: Admission Diagnosis/Problem Admission Diagnosis/Problem Atrial fibrillation or flutter Subjective Update: Jenna Wheeler is 77 y/o F with PMH significant for ?A-fib, hypertension, dyslipidemia, moderate chronic obstructive pulmonary disease on oxygen at nighttime, history of tobacco use, coronary artery disease with CABG in 2017. She presented brittney the ER because of palpitation. In the ER, she was found to be in A-fib with rate in the 40s but converted spontaneously to sinus rhythm at 77. She was admitted and monitored on telemetry. Had uneventful night. Patient had few episode of brdaycardia but this were not sustaining. Her HR this morning was in the 60s. Patient denies any complaints. No chest pain, SOB, palpitations, dizziness. She is being discharge home. She will follow up with PCP and cardiology. Patient is on ASA and metoprolol and is advised to continue. Functional Status: Reports: Pain Controlled - Review of Systems General: Reports: No Symptoms HEENT: Reports: No Symptoms Pulmonary: Reports: No Symptoms Cardiovascular: Reports: No Symptoms Gastrointestinal: Reports: No Symptoms Genitourinary: Reports: No Symptoms Musculoskeletal: Reports: No Symptoms Skin: Reports: No Symptoms Neurological: Reports: No Symptoms Psychiatric: Reports: No Symptoms - Patient Data Vitals - Most Recent: Last Vital Signs Temp 98 F 02/10/18 10:29 Pulse 64 02/10/18 10:29 Resp 20 02/10/18 10:29 BP 135/42 L 02/10/18 10:29 Pulse Ox 91 L 02/10/18 10:29 Weight - Most Recent: 167 lb 3.2 oz I&O - Last 24 hours: Intake & Output 02/09/18 02/10/18 02/10/18 22:59 06:59 14:59 Intake Total 649 1004 Output Total 300 200 Balance 349 804 Lab Results - Last 24 hrs: Laboratory Results - last 24 hr 02/09/18 02/09/18 02/09/18 Range/Units 18:58 18:58 18:58 WBC 9.0 (5.0-10.0) 10^3/uL RBC 4.79 (4.2-5.4) 10^6/uL Hgb 14.5 D (12.0-16.0) g/dL Hct 44.9 (37.0-47.0) % MCV 93.7 (80-100) fL MCH 30.3 (27.0-34.0) pg MCHC 32.3 L (33.0-35.0) g/dL Plt Count 152 (150-450) 10^3/uL Neut % (Auto) 64.4 (42.2-75.2) % Lymph % (Auto) 21.0 (20.5-50.1) % [place] % (Auto) 11.6 H (2-8) % Eos % (Auto) 2.7 (1.0-3.0) % Baso % (Auto) 0.3 (0.0-1.0) % PT (9.0-12.0) SEC INR (0.9-1.2) Sodium 139 (135-145) mmol/L Potassium 4.1 (3.6-5.0) mmol/L Chloride 99 L (101-111) mmol/L Carbon Dioxide 33.0 H (21.0-31.0) mmol/L Anion Gap 11.1 BUN 14 (7-18) mg/dL Creatinine 0.9 (0.6-1.3) mg/dL Est Cr Clr Drug Dosing 43.99 mL/min Estimated GFR (MDRD) > 60 BUN/Creatinine Ratio 15.55 Glucose 116 H (74-105) mg/dL Calcium 9.0 (8.4-10.2) mg/dl Phosphorus (2.5-4.6) mg/dL Magnesium (1.8-2.5) mg/dL Total Bilirubin 0.5 (0.2-1.0) mg/dL AST 20 (10-42) IU/L ALT 14 (10-60) IU/L Alkaline Phosphatase 83 (42-121) IU/L Troponin I < 0.02 (0.00-0.02) ng/ml B-Natriuretic Peptide 149 H (0-100) pg/ml Total Protein 7.0 (6.7-8.2) g/dl Albumin 4.1 (3.2-5.5) g/dl Globulin 2.9 Albumin/Globulin Ratio 1.41 Urine Color (YELLOW) Urine Appearance (CLEAR) Urine pH (5.0-9.0) Ur Specific [place] (1.005-1.030) Urine Protein (NEGATIVE) Urine Glucose (UA) (NEGATIVE) Urine Ketones (NEGATIVE) Urine Occult Blood (NEGATIVE) Urine Nitrite (NEGATIVE) Urine Bilirubin (NEGATIVE) Urine Urobilinogen (0.2-1.0) mg/dL Ur Leukocyte Esterase (NEGATIVE) Urine RBC /HPF Urine WBC (0-5/HPF) /HPF Ur Epithelial Cells /HPF Amorphous Sediment (0/HPF) /HPF Urine Bacteria (0-FEW/HPF) /HPF 02/09/18 02/09/18 02/09/18 Range/Units 18:58 18:58 19:21 WBC (5.0-10.0) 10^3/uL RBC (4.2-5.4) 10^6/uL Hgb (12.0-16.0) g/dL Hct (37.0-47.0) % MCV (80-100) fL MCH (27.0-34.0) pg MCHC (33.0-35.0) g/dL Plt Count (150-450) 10^3/uL Neut % (Auto) (42.2-75.2) % Lymph % (Auto) (20.5-50.1) % [place] % (Auto) (2-8) % Eos % (Auto) (1.0-3.0) % Baso % (Auto) (0.0-1.0) % PT 9.7 (9.0-12.0) SEC INR 1.0 (0.9-1.2) Sodium (135-145) mmol/L Potassium (3.6-5.0) mmol/L Chloride (101-111) mmol/L Carbon Dioxide (21.0-31.0) mmol/L Anion Gap BUN (7-18) mg/dL Creatinine (0.6-1.3) mg/dL Est Cr Clr Drug Dosing mL/min Estimated GFR (MDRD) BUN/Creatinine Ratio Glucose (74-105) mg/dL Calcium (8.4-10.2) mg/dl Phosphorus 3.6 (2.5-4.6) mg/dL Magnesium 2.2 (1.8-2.5) mg/dL Total Bilirubin (0.2-1.0) mg/dL AST (10-42) IU/L ALT (10-60) IU/L Alkaline Phosphatase (42-121) IU/L Troponin I (0.00-0.02) ng/ml B-Natriuretic Peptide (0-100) pg/ml Total Protein (6.7-8.2) g/dl Albumin (3.2-5.5) g/dl Globulin Albumin/Globulin Ratio Urine Color (YELLOW) Urine Appearance (CLEAR) Urine pH (5.0-9.0) Ur Specific [place] (1.005-1.030) Urine Protein (NEGATIVE) Urine Glucose (UA) (NEGATIVE) Urine Ketones (NEGATIVE) Urine Occult Blood (NEGATIVE) Urine Nitrite (NEGATIVE) Urine Bilirubin (NEGATIVE) Urine Urobilinogen (0.2-1.0) mg/dL Ur Leukocyte Esterase (NEGATIVE) Urine RBC /HPF Urine WBC (0-5/HPF) /HPF Ur Epithelial Cells /HPF Amorphous Sediment (0/HPF) /HPF Urine Bacteria (0-FEW/HPF) /HPF 18 02/10/18 Range/Units 20:28 06:28 WBC (5.0-10.0) 10^3/uL RBC (4.2-5.4) 10^6/uL Hgb (12.0-16.0) g/dL Hct (37.0-47.0) % MCV (80-100) fL MCH (27.0-34.0) pg MCHC (33.0-35.0) g/dL Plt Count (150-450) 10^3/uL Neut % (Auto) (42.2-75.2) % Lymph % (Auto) (20.5-50.1) % [place] % (Auto) (2-8) % Eos % (Auto) (1.0-3.0) % Baso % (Auto) (0.0-1.0) % PT (9.0-12.0) SEC INR (0.9-1.2) Sodium 139 (135-145) mmol/L Potassium 4.0 (3.6-5.0) mmol/L Chloride 104 (101-111) mmol/L Carbon Dioxide 31.0 (21.0-31.0) mmol/L Anion Gap 8.0 BUN 11 (7-18) mg/dL Creatinine 0.7 (0.6-1.3) mg/dL Est Cr Clr Drug Dosing 55.32 mL/min Estimated GFR (MDRD) > 60 BUN/Creatinine Ratio Glucose 102 (74-105) mg/dL Calcium 8.5 (8.4-10.2) mg/dl Phosphorus (2.5-4.6) mg/dL Magnesium (1.8-2.5) mg/dL Total Bilirubin (0.2-1.0) mg/dL AST (10-42) IU/L ALT (10-60) IU/L Alkaline Phosphatase (42-121) IU/L Troponin I (0.00-0.02) ng/ml B-Natriuretic Peptide (0-100) pg/ml Total Protein (6.7-8.2) g/dl Albumin (3.2-5.5) g/dl Globulin Albumin/Globulin Ratio Urine Color Yellow (YELLOW) Urine Appearance Slightly cloudy (CLEAR) Urine pH 7.5 (5.0-9.0) Ur Specific [place] 1.010 (1.005-1.030) Urine Protein Negative (NEGATIVE) Urine Glucose (UA) Negative (NEGATIVE) Urine Ketones Negative (NEGATIVE) Urine Occult Blood Negative (NEGATIVE) Urine Nitrite Negative (NEGATIVE) Urine Bilirubin Negative (NEGATIVE) Urine Urobilinogen 0.2 (0.2-1.0) mg/dL Ur Leukocyte Esterase Trace H (NEGATIVE) Urine RBC 5-10 H /HPF Urine WBC 0-5 (0-5/HPF) /HPF Ur Epithelial Cells Rare /HPF Amorphous Sediment Rare (0/HPF) /HPF Urine Bacteria Rare (0-FEW/HPF) /HPF Med Orders - Current: Current Medications Acetaminophen (Tylenol) 650 mg PO Q4H PRN PRN Reason: Pain (Mild 1-3)/fever Albuterol (Proventil Hfa) 0 gm INH Q6H PRN PRN Reason: Wheezing Albuterol/Ipratropium (Duoneb 3.0-0.5 Mg/3 Ml) 3 ml NEB Q4H PRN PRN Reason: shortness of breath/wheezing Aspirin (Halfprin) 81 mg PO DAILY [facility] Last Admin: 02/10/18 08:36 Dose: 81 mg Calcium Carbonate (Calcium Carbonate/Vitamin D 1250 Mg-200 Unit) 1 tab PO DAILY [facility] Last Admin: 02/10/18 08:36 Dose: 1 tab Docusate Sodium (Colace) 100 mg PO BID PRN PRN Reason: Constipation Last Admin: 02/09/18 22:04 Dose: 100 mg Furosemide (Lasix) 20 mg PO DAILY [facility] Last Admin: 02/10/18 08:35 Dose: 20 mg Heparin Sodium (Porcine) (Heparin Sodium) 5,000 units SUBCUT Q12H [facility] Last Admin: 02/10/18 08:37 Dose: 5,000 units Sodium Chloride (Normal Saline) 1,000 mls @ 75 mls/hr IV ASDIRECTED [facility] Last Admin: 02/09/18 22:02 Dose: 75 mls/hr Lisinopril (Prinivil) 20 mg PO DAILY [facility] Last Admin: 02/10/18 08:36 Dose: 20 mg Magnesium Hydroxide (Milk Of Magnesia) 30 ml PO Q12H PRN PRN Reason: Constipation Metoprolol Succinate (Toprol Xl) 50 mg PO DAILY [facility] Last Admin: 02/10/18 08:36 Dose: 50 mg Mometasone Furoate/Formoterol Fumar (Dulera 200-5 Mcg) 0 puff IH DAILY [facility] Last Admin: 02/10/18 08:41 Dose: Not Given Multivitamins (Thera) 1 each PO DAILY [facility] Last Admin: 02/10/18 08:37 Dose: 1 each Ondansetron HCl (Zofran) 4 mg IVPUSH Q6H PRN PRN Reason: Nausea/Vomiting Bioflav,Lemon/Vit Bcomp&C [Lipo- Flavonoid Plus Caplet] Pt's Own Med 1 each PO ASDIRECTED PRN PRN Reason: VERTIGO Rosuvastatin Calcium (Crestor) 20 mg PO BEDTIME [facility] Sodium Chloride (Saline Flush) 10 ml FLUSH ASDIRECTED PRN PRN Reason: Keep Vein Open Last Admin: 02/09/18 18:58 Dose: 10 ml Discontinued Medications Acetaminophen (Tylenol) 650 mg PO NOW ONE Stop: 02/09/18 19:48 Last Admin: 02/09/18 19:52 Dose: 650 mg - Exam Quality Assessment: Reports: DVT Prophylaxis General: Reports: Alert, Oriented HEENT: Reports: Pupils Equal, Pupils Reactive, EOMI, Mucous Membr. Moist/[place] Neck: Reports: Supple Lungs: Reports: Clear to Auscultation, Normal Respiratory Effort Cardiovascular: Reports: Regular Rate, Regular Rhythm GI/Abdominal Exam: Normal Bowel Sounds, Soft, Non-Tender, No Organomegaly, No Distention, No Abnormal Bruit, No Mass, Pelvis Stable (Female) Exam: Normal External Exam, Normal Speculum Exam, Normal Bimanual Exam Rectal (Female) Exam: Normal Exam, Normal Rectal Tone Back Exam: Reports: Normal Inspection, Full Range of Motion Extremities: Normal Inspection, Normal Range of Motion, Non-Tender, No Pedal Edema, Normal Capillary Refill Skin: Reports: Warm, Dry, Intact Wound/Incisions: Reports: Healing Well Neurological: Reports: No New Focal Deficit Psy/Mental Status: Reports: Alert, Normal Affect, Normal Mood
--- NOTE | 2018-02-10 13:52 | EKG ---
02/09/2018 - JUSTIN HERNANDEZ - TIME: 20:32 FINDINGS: Sinus bradycardia, rate 66. Atrial premature complexes. Left bundle- branch block. [facility] /[id number]
--- NOTE | 2018-02-10 13:58 | EKG ---
02/09/2018 - JUSTIN HERNANDEZ - TIME: 18:50 FINDINGS: Atrial fibrillation at 137, had ventricular premature complexes. Aberrant complex, possibly supraventricular. Left bundle-branch block. [facility] /[id number]
--- NOTE | 2018-02-10 14:04 | EKG ---
02/09/2018 - JUSTIN HERNANDEZ - TIME: 18:48 FINDINGS: Sinus tachycardia at 125. Ventricular bigeminy. Left bundle-branch block. [facility] /[id number]
[2018-02-10] MEDS ORDERED: Rosuvastatin 10 MG Tab PO SCH (21:00)
== END 2018-02-10 13:00 | disposition home or self-care (01) ==
LOC: DL.ED 18:36 → UNDOADMOB 20:52 → DL.MS 20:52
PROVIDERS: ADMIT Student in an Organized Health Care Education/Training Program; ATTEND Student in an Organized Health Care Education/Training Program
DX: I48.91 Unspecified atrial fibrillation (principal); I10 Essential (primary) hypertension; I25.10 Atherosclerotic heart disease of native coronary artery without angina pectoris; E78.5 Hyperlipidemia, unspecified; M19.90 Unspecified osteoarthritis, unspecified site; E66.9 Obesity, unspecified; J44.9 Chronic obstructive pulmonary disease, unspecified; Z99.81 Dependence on supplemental oxygen; Z79.82 Long term (current) use of aspirin; Z79.899 Other long term (current) drug therapy; Z87.891 Personal history of nicotine dependence; Z68.30 Body mass index [BMI] 30.0-30.9, adult
CPT/HCPCS: 36415; 71045; 80048; 80053; 81001; 83735; 83880; 84100; 84436; 84443; 84481; 84484; 85025; 85610; 93005; 93010; 96360; 96361; 96372; 99285; A9270; G0378; J1644; J7030; J7050

== ENCOUNTER 2018-06-01 16:14 | Emergency (ER) | payer MEDICARE, BC ==
[2018-06-01] MEDS ORDERED: Sodium Chloride 0.9% 10 ML Syringe FLUSH PRN (16:27)
--- NOTE | 2018-06-01 16:49 | CR ---
Clinical history: 77-year-old female with chest pain. 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 Normal cardiac silhouette without new signs of alveolar edema or dependent pleural fluid accumulation when compared to 09 February 2018 exam. No new lung mass, hilar lymphadenopathy or focal lobar pneumonia. No atelectasis/collapse. No air trapping or pneumothorax. No free subdiaphragmatic air. CONCLUSION: No acute new cardiopulmonary abnormality.
[2018-06-01 17:06] LABS: ANION GAP 15.9; CHLORIDE,CL 99 mmol/L (101-111); SODIUM,NA 137 mmol/L (135-145)
[2018-06-01 17:13] VITALS: BP 141/58
[2018-06-01] MEDS ORDERED: Meclizine 12.5 MG Tab PO ONE (17:21)
--- NOTE | 2018-06-01 17:25 | EDM.PDOC ---
Scribed by Alyson Casiano 06/01/18 [id number] for Jeffrey Calix MD ED HPI GENERAL MEDICAL PROBLEM - General Chief Complaint: Cardiovascular Problem Stated Complaint: [facility] [id number] Time Seen by Provider: 06/01/18 16:25 Source of Information: Reports: Patient, RN, RN Notes Reviewed History Limitations: Reports: No Limitations - History of Present Illness INITIAL COMMENTS - FREE TEXT/NARRATIVE: Pt presents to ER with c/o 1 weeks duration of intermittent "room spin" dizziness that is the same as her past episodes of vertigo. She has had several episodes of vertigo in the past which were self limited and resolved within a week, so she did not seek medical attention. Today she felt that her heart was racing, so she checked her pulse and it was 119 and she asked her son to take her to the ER. Pt had a HR of 102 upon arrival to the ER. She denies chest pain , palpitations, N/V, edema, or orthopnea. She admits to very mild sensation of shortness of breath when her heart rate was fast today. Duration: Week(s): (1), Intermittent Location: Reports: Generalized Quality: Reports: Other (denies pain) Severity: Moderate Improves with: Reports: None Worsens with: Reports: Movement Associated Symptoms: Reports: No Other Symptoms - Related Data Allergies Allergy/AdvReac Type Severity Reaction Status Date / Time environmental allergies Allergy Sneezing Uncoded 02/09/18 21:00 Home Meds: Home Meds Bioflav,Lemon/Vit BComp&C [Lipo-Flavonoid Plus Caplet] 1 each PO .PRN PRN [History] Calcium Carbonate/Vitamin D3 [Calcium 500-Vit D3 200 Caplet] 1 tab PO DAILY [History] Rosuvastatin [Crestor] 20 mg PO BEDTIME 08/09/16 [History] Albuterol [Proventil Neb Soln] 2.5 mg NEB .PRN PRN 12/11/16 [History] Ipratropium [Atrovent] 1 inh INH Q4HRRT PRN 12/11/16 [History] Multivitamin [Multiple Vitamins] 1 tab PO DAILY 12/11/16 [History] Fluticasone/Vilanterol [Breo Ellipta 100-25 MCG Inhalation Kit] 1 puff INH DAILY 12/16/16 [History] Aspirin [Ecotrin] 81 mg PO DAILY 12/27/16 [History] Furosemide [Lasix] 20 mg PO DAILY 01/08/17 [History] Metoprolol Succinate 50 mg PO DAILY 01/14/17 [History] Lisinopril [Prinivil] 20 mg PO DAILY 02/13/17 [History] Albuterol [Ventolin HFA] 2 puff INH Q6H PRN 09/26/17 [History] Bisacodyl [Dulcolax] 5 mg PO DAILY PRN 09/29/17 [History] Past Medical History HEENT History: Reports: Impaired Vision, Other (See Below) Other HEENT History: wears glasses Cardiovascular History: Reports: Bypass, CAD, High Cholesterol, Hypertension, [place] , Stents Other Cardiovascular History: Coronary artery bypass grafting x2. left internal mammary artery to the left anterior descending artery. Sphenous vein graft to the first obtuse marginal branch. Hx of edema Respiratory History: Reports: Bronchitis, Recurrent, COPD Gastrointestinal History: Reports: None Genitourinary History: Reports: Renal Disease, Other (See Below) Other Genitourinary History: Chronic kidney disease-mineral and bone disorder. Chronic kidney disease state 3. Acute kidney injury. 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: , Other (See Below) Other ZIPPER SETTER LOCKSTITCH History: pap smear abnormality of cervix Musculoskeletal History: Reports: Arthritis, Other (See Below) Other Musculoskeletal History: DEXA scan Neurological History: Reports: Vertigo, Other (See Below) Other Neuro History: Benign positional vertigo Psychiatric History: Reports: None Endocrine/Metabolic History: Reports: Obesity/BMI 30+ Hematologic History: Reports: Other (See Below) Immunologic History: Reports: None Oncologic (Cancer) History: Reports: Other (See Below) Other Oncologic History: skin Dermatologic History: Reports: Other (See Below) Other Dermatologic History: skin cancer - Infectious Disease History Infectious Disease History: Reports: Chicken Pox, Measles - Past Surgical History Head Surgeries/Procedures: Reports: None HEENT Surgical History: Reports: Cataract Surgery, Tonsillectomy Other HEENT Surgeries/Procedures: LENS IMPLANT BILAT EYES Cardiovascular Surgical History: Reports: Coronary Artery Bypass, Coronary Artery Stent, Other (See Below) Other Cardiovascular Surgeries/Procedures: CABG x 2 on December 06, 2016. Respiratory Surgical History: Reports: None GI Surgical History: Reports: Appendectomy, Colonoscopy, EGD Female Surgical History: Reports: Hysterectomy, Other (See Below) Other Female Surgeries/Procedures: hx of post menopausal problems, removed a growth Endocrine Surgical History: Reports: None Neurological Surgical History: Reports: None Musculoskeletal Surgical History: Reports: None Oncologic Surgical History: Reports: None Dermatological Surgical History: Reports: Skin Biopsy Social & Family History - Family History Family Medical History: Noncontributory - Caffeine Use Caffeine Use: Reports: Coffee, Soda, Tea Caffeine Use Comment: COFFEE & DIET COKE OCCASSIONALLY - Living Situation & Occupation Living situation: Reports: , Alone Occupation: Retired ED ROS GENERAL - Review of Systems Review Of Systems: ROS reveals no pertinent complaints other than HPI. ED EXAM, GENERAL - Physical Exam Exam: See Below Exam Limited By: No Limitations General Appearance: Alert, WD/WN, No Apparent Distress Eye Exam: Bilateral Eye: EOMI, Nystagmus (lateral gaze), PERRL Ears: Normal External Exam, Normal Canal, Hearing Grossly Normal, Normal TMs Nose: Normal Inspection, Normal Mucosa, No Blood Throat/Mouth: Normal Inspection, Normal Lips, Normal Oropharynx, Normal Voice, No Airway Compromise Head: Atraumatic, Normocephalic Neck: Normal Inspection, Supple, Non-Tender, Full Range of Motion. No: Carotid Bruit, Lymphadenopathy (L), Lymphadenopathy (R) Respiratory/Chest: No Respiratory Distress, Lungs Clear, Normal Breath Sounds, No Accessory Muscle Use, Chest Non-Tender Cardiovascular: Normal Peripheral Pulses, Regular Rate, Rhythm, No Edema, No Gallop, No JVD, No Murmur, No Rub GI/Abdominal: Normal Bowel Sounds, Soft, Non-Tender, No Distention, No Abnormal Bruit (Female) Exam: Deferred Rectal (Female) Exam: Deferred Back Exam: Normal Inspection Extremities: Normal Range of Motion, Non-Tender, Normal Capillary Refill, Pedal Edema (Trace) Neurological: Alert, Oriented, CN II-XII Intact, Normal Cognition, No Motor/ Sensory Deficits Psychiatric: Normal Affect, Normal Mood Skin Exam: Warm, Dry, Intact, Normal Color, No Rash EKG INTERPRETATION EKG Date: 06/01/18 Time: 16:21 Rhythm: Other (sinus tachycardia) Rate (Beats/Min): 102 [place]: Normal P-Wave: Present QRS: LBBB (chronic when compared to old EKG.) ST-T: Normal QT: Normal Comparison: No Change Course - Vital Signs Last Recorded V/S: Last Vital Signs Temp 37.2 C 06/01/18 17:12 Pulse 100 06/01/18 17:12 Resp 22 H 06/01/18 17:12 BP 141/58 H 06/01/18 17:12 Pulse Ox 92 L 06/01/18 17:12 Orthostatic Blood Pressure [ 157/67 Standing] Orthostatic Blood Pressure [ 144/56 Sitting] Orthostatic Blood Pressure [ 141/58 Supine] - Orders/Labs/Meds Orders: Active Orders 24 hr Category Date Time Status EKG 12 Lead [EKG Documentation Completion] [RC] STAT Care 06/01/18 16:27 Active Orthostatic Vital Signs [RC] ASDIRECTED Care 06/01/18 17:05 Active Peripheral IV Care [RC] . DIRECTED Care 06/01/18 16:27 Active TSH ULTRASENSITIVE [CHEM] Stat Lab 06/01/18 16:36 Received Sodium Chloride 0.9% [Saline Flush] Med 06/01/18 16:27 Active 10 ml FLUSH ASDIRECTED PRN Peripheral IV Insertion Adult [OM.PC] Stat Oth 06/01/18 16:26 Ordered Medication Orders Sodium Chloride (Saline Flush) 10 ml FLUSH ASDIRECTED PRN PRN Reason: Keep Vein Open Labs: Laboratory Tests 06/01/18 06/01/18 Range/Units 16:36 16:36 WBC 10.4 H (5.0-10.0) 10^3/uL RBC 4.69 (4.2-5.4) 10^6/uL Hgb 14.4 (12.0-16.0) g/dL Hct 43.6 (37.0-47.0) % MCV 93.0 (80-100) fL MCH 30.7 (27.0-34.0) pg MCHC 33.0 (33.0-35.0) g/dL Plt Count 189 (150-450) 10^3/uL Neut % (Auto) 75.5 H (42.2-75.2) % Lymph % (Auto) 13.5 L (20.5-50.1) % [place] % (Auto) 9.4 H (2-8) % Eos % (Auto) 1.3 (1.0-3.0) % Baso % (Auto) 0.3 (0.0-1.0) % Sodium 137 (135-145) mmol/L Potassium 3.9 (3.6-5.0) mmol/L Chloride 99 L (101-111) mmol/L Carbon Dioxide 26.0 (21.0-31.0) mmol/L Anion Gap 15.9 BUN 12 (7-18) mg/dL Creatinine 0.9 (0.6-1.3) mg/dL Est Cr Clr Drug Dosing 43.02 mL/min Estimated GFR (MDRD) > 60 BUN/Creatinine Ratio 13.33 Glucose 173 H (74-105) mg/dL Calcium 9.5 (8.4-10.2) mg/dl Magnesium 1.9 (1.8-2.5) mg/dL Total Bilirubin 0.6 (0.2-1.0) mg/dL AST 35 (10-42) IU/L ALT 31 (10-60) IU/L Alkaline Phosphatase 101 (42-121) IU/L Troponin I 0.02 (0.00-0.02) ng/ml B-Natriuretic Peptide 100 (0-100) pg/ml Total Protein 6.9 (6.7-8.2) g/dl Albumin 3.8 (3.2-5.5) g/dl Globulin 3.1 Albumin/Globulin Ratio 1.23 Lipase 22 (22-51) U/L Meds: Medications Generic Name Dose Route Start Last Admin Trade Name Freq PRN Reason Stop Dose Admin Sodium Chloride 10 ml 06/01/18 16:27 Saline Flush FLUSH ASDIRECTED PRN Keep Vein Open Discontinued Medications Generic Name Dose Route Start Last Admin Trade Name Freq PRN Reason Stop Dose Admin Meclizine HCl 25 mg 06/01/18 17:21 Antivert PO 06/01/18 17:22 ONETIME ONE - Radiology Interpretation Free Text/Narrative:: Chest x-ray: No acute new cardiopulmonary abnormality. See rad report. Departure - Departure Time of Disposition: 17:22 Disposition: Home, Self-Care 01 Condition: Good Clinical Impression: Vertigo Instructions: Vertigo, [id number] Forms: ED Department Discharge Additional Instructions: Rx: Meclizine 25mg *Do not drive while under the influence of this medication. Follow up in clinic next week for recheck of vertigo and for a diabetic evaluation due to high blood sugar. Return to ER if worse at any time. - My Orders Last 24 Hours: My Active Orders 06/01/18 16:26 Peripheral IV Insertion Adult [OM.PC] Stat 06/01/18 16:27 EKG 12 Lead [EKG Documentation Completion] [RC] STAT Peripheral IV Care [RC] . DIRECTED Sodium Chloride 0.9% [Saline Flush] 10 ml FLUSH ASDIRECTED PRN 06/01/18 16:36 TSH ULTRASENSITIVE [CHEM] Stat 06/01/18 17:05 Orthostatic Vital Signs [RC] ASDIRECTED - Assessment/Plan Last 24 Hours: My Active Orders 06/01/18 16:26 Peripheral IV Insertion Adult [OM.PC] Stat 06/01/18 16:27 EKG 12 Lead [EKG Documentation Completion] [RC] STAT Peripheral IV Care [RC] . DIRECTED Sodium Chloride 0.9% [Saline Flush] 10 ml FLUSH ASDIRECTED PRN 06/01/18 16:36 TSH ULTRASENSITIVE [CHEM] Stat 06/01/18 17:05 Orthostatic Vital Signs [RC] ASDIRECTED I have read and agree with the documentation that has been completed regarding this visit. By signing this record, I attest that the documentation was completed in my physical presence and is an accurate record of the encounter.
== END 2018-06-01 17:40 | disposition home or self-care (01) ==
LOC: DL.ED 16:14
DX: R42 Dizziness and giddiness (principal); I12.9 Hypertensive chronic kidney disease with stage 1 through stage 4 chronic kidney disease, or unspecified chronic kidney disease; N18.3 Chronic kidney disease, stage 3 (moderate); E78.00 Pure hypercholesterolemia, unspecified; F17.210 Nicotine dependence, cigarettes, uncomplicated; I25.10 Atherosclerotic heart disease of native coronary artery without angina pectoris; J44.9 Chronic obstructive pulmonary disease, unspecified; Z95.1 Presence of aortocoronary bypass graft; Z79.899 Other long term (current) drug therapy; Z79.82 Long term (current) use of aspirin
CPT/HCPCS: 36415; 71045; 80053; 83690; 83735; 83880; 84443; 84484; 85025; 93005; 99284; A9270

== ENCOUNTER 2019-03-02 07:13 | Emergency (ER) | payer MEDICARE, BC ==
--- NOTE | 2019-03-02 07:23 | EDM.PDOC ---
ED HPI GENERAL MEDICAL PROBLEM - General Chief Complaint: Cardiovascular Problem Stated Complaint: BP HIGH/PAIN IN LEFT ARM Time Seen by Provider: 03/02/19 07:23 Source of Information: Reports: Patient, Old Records, RN, RN Notes Reviewed History Limitations: Reports: No Limitations - History of Present Illness INITIAL COMMENTS - FREE TEXT/NARRATIVE: Pt presents to ER from home by POV with c/o high BP, and not feeling well since receiving an influenza vaccine on 02/18/19. Pt report that for the last 3 days especially she has had increased headache and head pressure, chills, cough w/ sputum production, and shortness of breath. She denies chest pain, palpitations , orthopnea, edema, lightheadedness, or syncope. She uses supplemental oxygen every night. She has not been using inhalers or nebulizers, but does have them at home. One or two days ago she took an unknown allergy pill and her headache was improved. This morning she woke with a sharp pain in the left shoulder and upper left arm so she checked her BP right away and it was 257/100. She rechecked her BP and again it was 228/104 so she took an Aspirin 81mg, Metoprolol, and Losartan then came straight to the ER. Pt arrives to ER very anxious with c/o shortness of breath. Onset: Gradual Duration: Constant, Getting Worse Location: Reports: Head, Chest, Upper Extremity, Left Quality: Reports: Sharp Severity: Severe Improves with: Reports: None Worsens with: Reports: None Associated Symptoms: Reports: No Other Symptoms Treatments PIGS FEET CLEANER: Reports: Other Medication(s), Oxygen Left Arm Pain Score (Numeric/FACES): 3 - Related Data Allergies Allergy/AdvReac Type Severity Reaction Status Date / Time environmental allergies Allergy Sneezing Uncoded 03/02/19 07:33 Home Meds: Home Meds Bioflav,Lemon/Vit BComp&C [Lipo-Flavonoid Plus Caplet] 1 each PO .PRN PRN [History] Calcium Carbonate/Vitamin D3 [Calcium 500-Vit D3 200 Caplet] 1 tab PO DAILY [History] Albuterol [Proventil Neb Soln] 2.5 mg NEB .PRN PRN 12/11/16 [History] Ipratropium [Atrovent] 1 inh INH Q4HRRT PRN 12/11/16 [History] Multivitamin [Multiple Vitamins] 1 tab PO DAILY 12/11/16 [History] Fluticasone/Vilanterol [Breo Ellipta 100-25 MCG Inhalation Kit] 1 puff INH DAILY 12/16/16 [History] Aspirin [Ecotrin EC] 81 mg PO DAILY 12/27/16 [History] Metoprolol Succinate 50 mg PO DAILY 01/14/17 [History] Albuterol [Ventolin HFA] 2 puff INH Q6H PRN 09/26/17 [History] Bisacodyl [Dulcolax] 5 mg PO DAILY PRN 09/29/17 [History] Losartan Potassium [Cozaar] 100 mg PO DAILY 03/02/19 [History] atorvaSTATin [Lipitor] 40 mg PO DAILY 03/02/19 [History] Past Medical History HEENT History: Reports: Impaired Vision, Other (See Below) Other HEENT History: wears glasses Cardiovascular History: Reports: Bypass, CAD, High Cholesterol, Hypertension, [place] , Stents Other Cardiovascular History: Coronary artery bypass grafting x2. left internal mammary artery to the left anterior descending artery. Sphenous vein graft to the first obtuse marginal branch. Hx of edema Respiratory History: Reports: Bronchitis, Recurrent, COPD Gastrointestinal History: Reports: None Genitourinary History: Reports: Renal Disease, Other (See Below) Other Genitourinary History: Chronic kidney disease-mineral and bone disorder. Chronic kidney disease state 3. Acute kidney injury. Microalbuminuria SKELP PROCESSOR History: Reports: , Other (See Below) Other SKELP PROCESSOR History: pap smear abnormality of cervix Musculoskeletal History: Reports: Arthritis, Other (See Below) Other Musculoskeletal History: DEXA scan Neurological History: Reports: Vertigo, Other (See Below) Other Neuro History: Benign positional vertigo Psychiatric History: Reports: None Endocrine/Metabolic History: Reports: Obesity/BMI 30+ Hematologic History: Reports: Other (See Below) Immunologic History: Reports: None Oncologic (Cancer) History: Reports: Other (See Below) Other Oncologic History: skin Dermatologic History: Reports: Other (See Below) Other Dermatologic History: skin cancer - Infectious Disease History Infectious Disease History: Reports: Chicken Pox, Measles - Past Surgical History Head Surgeries/Procedures: Reports: None HEENT Surgical History: Reports: Cataract Surgery, Tonsillectomy Other HEENT Surgeries/Procedures: LENS IMPLANT BILAT EYES Cardiovascular Surgical History: Reports: Coronary Artery Bypass, Coronary Artery Stent, Other (See Below) Other Cardiovascular Surgeries/Procedures: CABG x 2 on December 06, 2016. Respiratory Surgical History: Reports: None GI Surgical History: Reports: Appendectomy, Colonoscopy, EGD Female Surgical History: Reports: Hysterectomy, Other (See Below) Other Female Surgeries/Procedures: hx of post menopausal problems, removed a growth Endocrine Surgical History: Reports: None Neurological Surgical History: Reports: None Musculoskeletal Surgical History: Reports: None Oncologic Surgical History: Reports: None Dermatological Surgical History: Reports: Skin Biopsy Social & Family History - Family History Family Medical History: Noncontributory - Tobacco Use Smoking Status *Q: Former Smoker Tobacco Use Within Last Twelve Months: Cigarettes - Caffeine Use Caffeine Use: Reports: Coffee, Soda, Tea Caffeine Use Comment: COFFEE & DIET COKE OCCASSIONALLY - Living Situation & Occupation Living situation: Reports: , Alone Occupation: Retired ED ROS GENERAL - Review of Systems Review Of Systems: ROS reveals no pertinent complaints other than HPI. ED EXAM, GENERAL - Physical Exam Exam: See Below Exam Limited By: No Limitations General Appearance: Alert, WD/WN, No Apparent Distress, Anxious Eye Exam: Bilateral Eye: Normal Inspection Ears: Normal External Exam, Hearing Grossly Normal Nose: Normal Inspection, Normal Mucosa, No Blood Throat/Mouth: Normal Inspection, Normal Lips, Normal Teeth, Normal Gums, Normal Oropharynx, Normal Voice, No Airway Compromise Head: Atraumatic, Normocephalic Neck: Normal Inspection, Supple, Non-Tender, Full Range of Motion Respiratory/Chest: No Respiratory Distress, No Accessory Muscle Use, Chest Non- Tender, Decreased Breath Sounds, Crackles, Wheezing (mild scattered wheezes) Cardiovascular: Normal Peripheral Pulses, Regular Rate, Rhythm, No Edema GI/Abdominal: Normal Bowel Sounds, Soft, Non-Tender, No Organomegaly, No Distention, No Abnormal Bruit, No Mass Back Exam: Normal Inspection Extremities: Normal Inspection, Normal Range of Motion, Non-Tender, Normal Capillary Refill, No Pedal Edema Neurological: Alert, Oriented, CN II-XII Intact, Normal Cognition, Normal Gait, No Motor/Sensory Deficits Psychiatric: Anxious, Depressed Mood, Flat Affect Skin Exam: Warm, Dry, Intact, Normal Color, No Rash EKG INTERPRETATION EKG Date: 03/02/19 Time: 07:20 Rhythm: Other (SR) Rate (Beats/Min): 73 [place]: LAD-Left [place] Deviation P-Wave: Present QRS: LBBB ST-T: Normal QT: Normal Comparison: No Change EKG Interpretation Comments: Chronic LBBB, no acute ischemic changes. Course - Vital Signs Last Recorded V/S: Last Vital Signs Temp 97.7 F 03/02/19 07:27 Pulse 63 03/02/19 07:43 Resp 18 03/02/19 07:43 BP 172/58 H 03/02/19 07:43 Pulse Ox 99 03/02/19 07:43 - Orders/Labs/Meds Orders: Active Orders 24 hr Category Date Time Status EKG 12 Lead [EKG Documentation Completion] [] STAT Care 03/02/19 07:23 Active Peripheral IV Care [RC] . DIRECTED Care 03/02/19 07:24 Active RT Aerosol Therapy [RC] ASDIRECTED Care 03/02/19 07:25 Active Chest 1V Frontal [CR] Stat Exams 03/02/19 07:23 Taken CULTURE URINE [RM] Stat Lab 03/02/19 07:53 Received Sodium Chloride 0.9% [Saline Flush] Med 03/02/19 07:23 Active 10 ml FLUSH ASDIRECTED PRN Peripheral IV Insertion Adult [OM.PC] Stat Oth 03/02/19 07:23 Ordered Medication Orders Sodium Chloride (Saline Flush) 10 ml FLUSH ASDIRECTED PRN PRN Reason: Keep Vein Open Last Admin: 03/02/19 07:34 Dose: 10 ml Labs: Laboratory Tests 03/02/19 03/02/19 03/02/19 Range/Units 07:29 07:29 07:29 WBC 9.0 (5.0-10.0) 10^3/uL RBC 4.84 (4.2-5.4) 10^6/uL Hgb 14.7 (12.0-16.0) g/dL Hct 44.6 (37.0-47.0) % MCV 92.1 (80-100) fL MCH 30.4 (27.0-34.0) pg MCHC 33.0 (33.0-35.0) g/dL Plt Count 179 (150-450) 10^3/uL Neut % (Auto) 67.7 (42.2-75.2) % Lymph % (Auto) 17.6 L (20.5-50.1) % [place] % (Auto) 11.0 H (2-8) % Eos % (Auto) 3.4 H (1.0-3.0) % Baso % (Auto) 0.3 (0.0-1.0) % Sodium 140 (135-145) mmol/L Potassium 4.0 (3.6-5.0) mmol/L Chloride 101 (101-111) mmol/L Carbon Dioxide 28.0 (21.0-31.0) mmol/L Anion Gap 15.0 BUN 11 (7-18) mg/dL Creatinine 0.7 (0.6-1.3) mg/dL Est Cr Clr Drug Dosing 58.12 mL/min Estimated GFR (MDRD) > 60 BUN/Creatinine Ratio 15.71 Glucose 107 H (74-105) mg/dL Lactic Acid 1.2 (0.5-2.2) mmol/L Calcium 9.2 (8.4-10.2) mg/dl Total Bilirubin 1.1 H (0.2-1.0) mg/dL AST 19 (10-42) IU/L ALT 17 (10-60) IU/L Alkaline Phosphatase 99 (42-121) IU/L Troponin I < 0.02 (0.00-0.02) ng/ml B-Natriuretic Peptide 500 H (0-100) pg/ml Total Protein 7.3 (6.7-8.2) g/dl Albumin 4.2 (3.2-5.5) g/dl Globulin 3.1 Albumin/Globulin Ratio 1.35 Urine Color (YELLOW) Urine Appearance (CLEAR) Urine pH (5.0-9.0) Ur Specific [place] (1.005-1.030) Urine Protein (NEGATIVE) Urine Glucose (UA) (NEGATIVE) Urine Ketones (NEGATIVE) Urine Occult Blood (NEGATIVE) Urine Nitrite (NEGATIVE) Urine Bilirubin (NEGATIVE) Urine Urobilinogen (0.2-1.0) mg/dL Ur Leukocyte Esterase (NEGATIVE) Urine RBC /HPF Urine WBC (0-5/HPF) /HPF Ur Epithelial Cells (NOT SEEN) /HPF Amorphous Sediment (NOT SEEN) /HPF Urine Bacteria (0-FEW/HPF) /HPF 03/02/19 Range/Units 07:53 WBC (5.0-10.0) 10^3/uL RBC (4.2-5.4) 10^6/uL Hgb (12.0-16.0) g/dL Hct (37.0-47.0) % MCV (80-100) fL MCH (27.0-34.0) pg MCHC (33.0-35.0) g/dL Plt Count (150-450) 10^3/uL Neut % (Auto) (42.2-75.2) % Lymph % (Auto) (20.5-50.1) % [place] % (Auto) (2-8) % Eos % (Auto) (1.0-3.0) % Baso % (Auto) (0.0-1.0) % Sodium (135-145) mmol/L Potassium (3.6-5.0) mmol/L Chloride (101-111) mmol/L Carbon Dioxide (21.0-31.0) mmol/L Anion Gap BUN (7-18) mg/dL Creatinine (0.6-1.3) mg/dL Est Cr Clr Drug Dosing mL/min Estimated GFR (MDRD) BUN/Creatinine Ratio Glucose (74-105) mg/dL Lactic Acid (0.5-2.2) mmol/L Calcium (8.4-10.2) mg/dl Total Bilirubin (0.2-1.0) mg/dL AST (10-42) IU/L ALT (10-60) IU/L Alkaline Phosphatase (42-121) IU/L Troponin I (0.00-0.02) ng/ml B-Natriuretic Peptide (0-100) pg/ml Total Protein (6.7-8.2) g/dl Albumin (3.2-5.5) g/dl Globulin Albumin/Globulin Ratio Urine Color Yellow (YELLOW) Urine Appearance Slightly cloudy (CLEAR) Urine pH 7.0 (5.0-9.0) Ur Specific [place] 1.015 (1.005-1.030) Urine Protein Negative (NEGATIVE) Urine Glucose (UA) Negative (NEGATIVE) Urine Ketones Negative (NEGATIVE) Urine Occult Blood Small H (NEGATIVE) Urine Nitrite Negative (NEGATIVE) Urine Bilirubin Negative (NEGATIVE) Urine Urobilinogen 0.2 (0.2-1.0) mg/dL Ur Leukocyte Esterase Trace H (NEGATIVE) Urine RBC 0-5 /HPF Urine WBC 0-5 (0-5/HPF) /HPF Ur Epithelial Cells Few (NOT SEEN) /HPF Amorphous Sediment Few (NOT SEEN) /HPF Urine Bacteria Few (0-FEW/HPF) /HPF Meds: Medications Generic Name Dose Route Start Last Admin Trade Name Freq PRN Reason Stop Dose Admin Sodium Chloride 10 ml 03/02/19 07:23 03/02/19 07:34 Saline Flush FLUSH 10 ml ASDIRECTED PRN Administration Keep Vein Open Discontinued Medications Generic Name Dose Route Start Last Admin Trade Name Freq PRN Reason Stop Dose Admin Albuterol/Ipratropium 3 ml 03/02/19 07:25 03/02/19 07:34 Duoneb 3.0-0.5 Mg/3 Ml NEB 03/02/19 07:26 3 ml ONETIME ONE Administration Aspirin 324 mg 03/02/19 07:25 03/02/19 07:34 Aspirin PO 03/02/19 07:26 324 mg ONETIME ONE Administration Methylprednisolone Sodium Succinate 125 mg 03/02/19 08:13 03/02/19 08:18 Solu-Medrol IVPUSH 03/02/19 08:14 125 mg ONETIME ONE Administration - Radiology Interpretation Free Text/Narrative:: CXR: no acute infiltrates or consolidation, see Rad. report. - Re-Assessments/Exams Free Text/Narrative Re-Assessment/Exam: 03/02/19 08:29 Pt feels improved, and less anxious now that she sees her BP lower and her EKG is benign. Pt states she has home O2 and nebulizer at home and she does not feel that she needs to be admitted at this time. Given the Hx, exam findings, and diagnostic results I agree that she does not need to be in the hospital for treatment, but have advised her to monitor her oxygen saturation and symptoms and see that she is improving with outpt. tx. Pt is instructed to f/u in clinic in 3 days, and to return to the ER if she is worse at any time. Departure - Departure Time of Disposition: 08:32 Disposition: Home, Self-Care 01 Condition: Fair Clinical Impression: Acute exacerbation of chronic obstructive pulmonary disease (COPD), Hypertension, isolated systolic, Left upper arm pain Instructions: Chronic Obstructive Pulmonary Disease Exacerbation, [id number] Forms: ED Department Discharge Additional Instructions: Rx: Prednisone 20mg Rx: Levaquin 500mg Use your Albuterol Nebulizer every 4 hours while awake until your breathing improves. Use your home oxygen until your breathing improves. Follow up in clinic on March 05 for recheck. Return to the ER if your oxygen is staying below 90%, or the bottom number of your blood pressure is staying over 100. Otherwise return to the ER if you are worse at any time. - My Orders Last 24 Hours: My Active Orders 03/02/19 07:23 EKG 12 Lead [EKG Documentation Completion] [RC] STAT Chest 1V Frontal [CR] Stat Sodium Chloride 0.9% [Saline Flush] 10 ml FLUSH ASDIRECTED PRN Peripheral IV Insertion Adult [OM.PC] Stat 03/02/19 07:24 Peripheral IV Care [RC] . DIRECTED 03/02/19 07:25 RT Aerosol Therapy [RC] ASDIRECTED 03/02/19 07:53 CULTURE URINE [RM] Stat - Assessment/Plan Last 24 Hours: My Active Orders 03/02/19 07:23 EKG 12 Lead [EKG Documentation Completion] [RC] STAT Chest 1V Frontal [CR] Stat Sodium Chloride 0.9% [Saline Flush] 10 ml FLUSH ASDIRECTED PRN Peripheral IV Insertion Adult [OM.PC] Stat 03/02/19 07:24 Peripheral IV Care [RC] . DIRECTED 03/02/19 07:25 RT Aerosol Therapy [RC] ASDIRECTED 03/02/19 07:53 CULTURE URINE [RM] Stat
[2019-03-02] MEDS: Aspirin 81 MG Tab.Chew PO ONE (07:34)
[2019-03-02] MEDS: Albuterol/Ipratropium 3.0-0.5 MG/3 ML Neb Soln NEB ONE (07:34)
[2019-03-02] MEDS: Sodium Chloride 0.9% 10 ML Syringe FLUSH PRN (07:34)
[2019-03-02 07:59] LABS: CHLORIDE,CL 101 mmol/L (101-111); SODIUM,NA 140 mmol/L (135-145)
[2019-03-02] MEDS: methylPREDNISolone Sodium Succinate 125 MG/2 ML SDV IVPUSH ONE (08:18)
[2019-03-02 09:00] VITALS: BP 196/69; PULSE 64
--- NOTE | 2019-03-02 09:03 | CR ---
EXAMINATION: Chest 1V Frontal SEX: Female AGE: 78 years CLINICAL HISTORY: 78-year-old extremely hypertensive female emergency department with chest pain/shortness of breath. INTERPRETATION: 1. Sternotomy wires. External court recording monitor leads. 2. Normal cardiac silhouette i.e. size and configuration unchanged since 01 June 2018 exam. 3. No new signs of alveolar edema or dependent pleural fluid accumulation (effusion). 4. No new lung mass, hilar lymphadenopathy or focal lobar pneumonia. 5. No atelectasis/collapse. No pneumothorax. CONCLUSION: No acute new cardiopulmonary abnormality since May 2018 exam.
== END 2019-03-02 08:56 | disposition home or self-care (01) ==
LOC: DL.ED 07:13
DX: J44.1 Chronic obstructive pulmonary disease with (acute) exacerbation (principal); I12.9 Hypertensive chronic kidney disease with stage 1 through stage 4 chronic kidney disease, or unspecified chronic kidney disease; N18.3 Chronic kidney disease, stage 3 (moderate); M79.602 Pain in left arm; I25.2 Old myocardial infarction; E66.9 Obesity, unspecified; I25.10 Atherosclerotic heart disease of native coronary artery without angina pectoris; E78.5 Hyperlipidemia, unspecified; Z87.891 Personal history of nicotine dependence; Z79.82 Long term (current) use of aspirin; Z79.51 Long term (current) use of inhaled steroids; Z79.899 Other long term (current) drug therapy; Z95.5 Presence of coronary angioplasty implant and graft; Z95.1 Presence of aortocoronary bypass graft
CPT/HCPCS: 36415; 71045; 80053; 81001; 83605; 83880; 84484; 85025; 87086; 87088; 87186; 93005; 96374; 99285-25; A9270-GY; J2930; J7620-GY

== ENCOUNTER 2020-02-17 20:16 | Emergency (ER) | payer MEDICARE, BC ==
[2020-02-17 20:31] VITALS: BP 121/82; PULSE 82
[2020-02-17] MEDS ORDERED: Glucagon,Human Recombinant 1 MG Vial IVPUSH ONE ×2 (20:33→21:01)
--- NOTE | 2020-02-17 20:36 | EDM.PDOC ---
ED HPI GENERAL MEDICAL PROBLEM - General Chief Complaint: ENT Problem Stated Complaint: throat blockage everything swollowed comesback up Time Seen by Provider: 02/17/20 20:33 Source of Information: Reports: Patient History Limitations: Reports: No Limitations - History of Present Illness INITIAL COMMENTS - FREE TEXT/NARRATIVE: states onset an hours ago, was eating some radish earlier. ER records show pt was here for same 4 years ago and sent to [facility] due to no response from IV glucagon. pt states unable to swallow water. - Related Data Allergies Allergy/AdvReac Type Severity Reaction Status Date / Time environmental allergies Allergy Sneezing Uncoded 02/17/20 20:30 Home Meds: Home Meds Bioflav,Lemon/Vit Bcomp,C [Lipo-Flavonoid Plus Caplet] 1 each PO .PRN PRN 03/25/14 [History] Calcium Carbonate/Vitamin D3 [Calcium 500-Vit D3 200 Caplet] 1 tab PO DAILY 03/25/14 [History] Albuterol [Proventil Neb Soln] 2.5 mg NEB .PRN PRN 12/11/16 [History] Ipratropium [Atrovent] 1 inh INH Q4HRRT PRN 12/11/16 [History] Multivitamin [Multiple Vitamins] 1 tab PO DAILY 12/11/16 [History] Fluticasone/Vilanterol [Breo Ellipta 100-25 MCG Inhalation Kit] 1 puff INH DAILY 12/16/16 [History] Aspirin [Ecotrin EC] 81 mg PO DAILY 12/27/16 [History] Metoprolol Succinate 50 mg PO DAILY 01/14/17 [History] Albuterol [Ventolin HFA] 2 puff INH Q6H PRN 09/26/17 [History] bisacodyL [Dulcolax] 5 mg PO DAILY PRN 09/29/17 [History] Losartan Potassium [Cozaar] 100 mg PO DAILY 03/02/19 [History] atorvaSTATin [Lipitor] 40 mg PO DAILY 03/02/19 [History] Past Medical History HEENT History: Reports: Impaired Vision, Other (See Below) Other HEENT History: wears glasses Cardiovascular History: Reports: Bypass, CAD, High Cholesterol, Hypertension, [place], Stents Other Cardiovascular History: Coronary artery bypass grafting x2. left internal mammary artery to the left anterior descending artery. Sphenous vein graft to the first obtuse marginal branch. Hx of edema Respiratory History: Reports: Bronchitis, Recurrent, COPD Gastrointestinal History: Reports: None Genitourinary History: Reports: Renal Disease, Other (See Below) Other Genitourinary History: Chronic kidney disease-mineral and bone disorder. Chronic kidney disease state 3. Acute kidney injury. Microalbuminuria EAP CONSULTANT History: Reports: , Other (See Below) Other EAP CONSULTANT History: pap smear abnormality of cervix Musculoskeletal History: Reports: Arthritis, Other (See Below) Other Musculoskeletal History: DEXA scan Neurological History: Reports: Vertigo, Other (See Below) Other Neuro History: Benign positional vertigo Psychiatric History: Reports: None Endocrine/Metabolic History: Reports: Obesity/BMI 30+ Hematologic History: Reports: Other (See Below) Immunologic History: Reports: None Oncologic (Cancer) History: Reports: Other (See Below) Other Oncologic History: skin Dermatologic History: Reports: Other (See Below) Other Dermatologic History: skin cancer - Infectious Disease History Infectious Disease History: Reports: Chicken Pox, Measles - Past Surgical History Head Surgeries/Procedures: Reports: None HEENT Surgical History: Reports: Cataract Surgery, Tonsillectomy Other HEENT Surgeries/Procedures: LENS IMPLANT BILAT EYES Cardiovascular Surgical History: Reports: Coronary Artery Bypass, Coronary Artery Stent, Other (See Below) Other Cardiovascular Surgeries/Procedures: CABG x 2 on December 06, 2016. Respiratory Surgical History: Reports: None GI Surgical History: Reports: Appendectomy, Colonoscopy, EGD Female Surgical History: Reports: Hysterectomy, Other (See Below) Other Female Surgeries/Procedures: hx of post menopausal problems, removed a growth Endocrine Surgical History: Reports: None Neurological Surgical History: Reports: None Musculoskeletal Surgical History: Reports: None Oncologic Surgical History: Reports: None Dermatological Surgical History: Reports: Skin Biopsy Social & Family History - Family History Family Medical History: Noncontributory - Caffeine Use Caffeine Use: Reports: Coffee, Soda, Tea Caffeine Use Comment: COFFEE & DIET COKE OCCASSIONALLY - Living Situation & Occupation Living situation: Reports: , Alone Occupation: Retired ED ROS ENT - Review of Systems Review Of Systems: Comprehensive ROS is negative, except as noted in HPI. ED EXAM, ENT - Physical Exam Exam: See Below Exam Limited By: No Limitations General Appearance: Alert, WD/WN, Mild Distress, Other (discomfort) Ears: Hearing Grossly Normal Mouth/Throat: Normal Inspection. No: Drooling Head: Atraumatic Neck: Non-Tender, Full Range of Motion Respiratory/Chest: No Respiratory Distress Cardiovascular: Regular Rate, Rhythm GI/Abdominal: Soft, Non-Tender (Female) Exam: Deferred Rectal (Female) Exam: Deferred Neurological: Alert, Oriented, Normal Cognition, Normal Gait, No Motor/Sensory Deficits Psychiatric: Flat Affect Lymphatic: No Adenopathy Course - Vital Signs Last Recorded V/S: Last Vital Signs Temp 36.0 C L 02/17/20 20:30 Pulse 82 02/17/20 20:30 Resp 16 02/17/20 20:30 BP 121/82 02/17/20 20:30 Pulse Ox 91 L 02/17/20 20:30 - Orders/Labs/Meds Meds: Medications Discontinued Medications Generic Name Dose Route Start Last Admin Trade Name Alfred PRN Reason Stop Dose Admin Glucagon 1 mg 02/17/20 20:33 02/17/20 20:50 Glucagen IVPUSH 02/17/20 20:34 1 mg ONETIME ONE Administration Glucagon 1 mg 02/17/20 21:01 02/17/20 21:06 Glucagen IVPUSH 02/17/20 21:02 1 mg ONETIME ONE Administration - Re-Assessments/Exams Free Text/Narrative Re-Assessment/Exam: 02/17/20 21:29 re-exam; s/p IV glucagon = able to swallow water now and feels good. Departure - Departure Time of Disposition: 21:30 Disposition: Home, Self-Care 01 Condition: Good Clinical Impression: Food impaction of esophagus Qualifiers: Encounter type: initial encounter Qualified Code(s): T18.128A - Food in esophagus causing other injury, initial encounter - Discharge Information Forms: ED Department Discharge Additional Instructions: 1) avoid solid foods over the weekend 2) have popsilce, jello, broth 3) recheck if there is any change or concern Sepsis Event Note (ED) - Evaluation Sepsis Screening Result: No Definite Risk - Focused Exam Vital Signs: Vital Signs Temp Pulse Resp BP Pulse Ox 02/17/20 20:30 36.0 C L 82 16 121/82 91 L
== END 2020-02-17 21:37 | disposition home or self-care (01) ==
LOC: DL.ED 20:16
DX: T18.128A Food in esophagus causing other injury, initial encounter (principal); I12.9 Hypertensive chronic kidney disease with stage 1 through stage 4 chronic kidney disease, or unspecified chronic kidney disease; N18.3 Chronic kidney disease, stage 3 (moderate); I25.2 Old myocardial infarction; I25.10 Atherosclerotic heart disease of native coronary artery without angina pectoris; E78.00 Pure hypercholesterolemia, unspecified; J44.9 Chronic obstructive pulmonary disease, unspecified; E66.9 Obesity, unspecified; Z95.5 Presence of coronary angioplasty implant and graft; Z90.49 Acquired absence of other specified parts of digestive tract; Z90.710 Acquired absence of both cervix and uterus; Z88.8 Allergy status to other drugs, medicaments and biological substances; Z79.82 Long term (current) use of aspirin; Z79.899 Other long term (current) drug therapy; Z68.32 Body mass index [BMI] 32.0-32.9, adult
CPT/HCPCS: 96374; 99283; J1610

== ENCOUNTER 2020-05-10 17:58 | Emergency (ER) | payer MEDICARE, BC ==
[2020-05-10 18:20] VITALS: BP 199/76; PULSE 80
--- NOTE | 2020-05-10 19:02 | CR ---
PROCEDURE INFORMATION: Exam: XR Abdomen, 1 View Exam date and time: 05/10/2020 6:42 PM Age: 79 years old Clinical indication: Other: Abdominal crmaping, constipation TECHNIQUE: Imaging protocol: XR of the abdomen. Views: Frontal supine view of the abdomen. 1 View. COMPARISON: No relevant prior studies available. FINDINGS: Gastrointestinal tract: Nonspecific nonobstructive bowel gas pattern with moderate amount of stool. Vasculature: Multiple rounded calcifications within the pelvis, nonspecific, possibly vascular. Bones/joints: Degenerative spurring of the spine. IMPRESSION: Nonspecific nonobstructive bowel gas pattern with moderate amount of stool.
[2020-05-10 19:07] LABS: ANION GAP 15.1 mEq/L (7-13)
[2020-05-10] MEDS ORDERED: Iopamidol 612 MG/ML 100 ML Bottle IVPUSH ONE (19:23)
--- NOTE | 2020-05-10 20:15 | CT ---
PROCEDURE INFORMATION: Exam: CT Abdomen And Pelvis With Contrast Exam date and time: 05/10/2020 7:44 PM Age: 79 years old Clinical indication: Other: Abdominal pain, bloating wbc 11.0 TECHNIQUE: Imaging protocol: Computed tomography of the abdomen and pelvis with intravenous contrast. Radiation optimization: All CT scans at this facility use at least one of these dose optimization techniques: automated exposure control; mA and/or kV adjustment per patient size (includes targeted exams where dose is matched to clinical indication); or iterative reconstruction. Contrast material: ISOVUE 300; Contrast volume: 75 ml; Contrast route: INTRAVENOUS (IV); COMPARISON: CT Abdomen Pelvis w Cont 09/02/2017 9:59 AM FINDINGS: Lungs: Minimal atelectasis left lingular segment. Mediastinal space: Small hiatal hernia. Liver: Stable tiny hypodensities left lobe of liver. Gallbladder and bile ducts: Normal. No calcified stones. No ductal dilation. Pancreas: Solitary calcification pancreas likely vascular. Spleen: Normal. No splenomegaly. Adrenal glands: Thickening right and left adrenal glands unchanged. Kidneys and ureters: Numerous bilateral renal cysts. Stomach and bowel: Multiple colonic diverticula. Numerous sigmoid diverticula with some adjacent Caty sigmoid fat stranding. Appendix: No evidence of appendicitis. Intraperitoneal space: Unremarkable. No free air. No significant fluid collection. Vasculature: Advanced atherosclerotic changes of the abdominal aorta and branches. Advanced calcification at the origin of the celiac axis appears to result in stenosis at the origin. Lymph nodes: Unremarkable. No enlarged lymph nodes. Urinary bladder: Unremarkable as visualized. Reproductive: Unremarkable as visualized. Bones/joints: Unremarkable. No acute fracture. Soft tissues: Unremarkable. IMPRESSION: 1. Acute sigmoid diverticulitis. No abscess. 2. See above for other details. COMMENTS: Consistent with the [employer]'s Incidental Findings Committee white paper (J Am Tevin Radiol 2018): Any incidental renal lesion less than 1 cm or classified as too small to characterize, or any incidental cystic renal lesion characterized as simple-appearing, is likely benign. No follow-up imaging is recommended for these lesions per consensus recommendations based on imaging criteria.
[2020-05-10] MEDS ORDERED: metroNIDAZOLE 250 MG Tab PO ONE (20:32)
[2020-05-10] MEDS ORDERED: Ciprofloxacin 500 MG Tab PO ONE (20:32)
--- NOTE | 2020-05-10 20:35 | EDM.PDOC ---
ED HPI GENERAL MEDICAL PROBLEM - General Chief Complaint: Back Pain or Injury Stated Complaint: STABBING BACK PAINS DIZZY CLAMMINESS Time Seen by Provider: 05/10/20 19:00 Source of Information: Reports: Patient History Limitations: Reports: No Limitations - History of Present Illness INITIAL COMMENTS - FREE TEXT/NARRATIVE: ED with c/o stabbing lower back pain abdominal cramping, increased belching and flatus. No fever or chills. Reports normal BM, No recent dirrhea. No urinary burning or frequency. No fever or chills. No vomiting. Decreased appetite. Pain does not associate with eating. Denied chest pain or cough. Reports seen in clinic earlier for abdominal pain and more focus on respiratory/COPD, states no difficulty breathing and unchanged. from baseline. Abdominal primary c/o not addressed. Lower Back Pain Score (Numeric/FACES): 5 - Related Data Allergies Allergy/AdvReac Type Severity Reaction Status Date / Time environmental allergies Allergy Sneezing Uncoded 05/10/20 18:14 Home Meds: Home Meds Bioflav,Lemon/Vit Bcomp,C [Lipo-Flavonoid Plus Caplet] 1 each PO .PRN PRN 03/25/14 [History] Calcium Carbonate/Vitamin D3 [Calcium 500-Vit D3 200 Caplet] 1 tab PO DAILY 03/25/14 [History] Albuterol [Proventil Neb Soln] 2.5 mg NEB .PRN PRN 12/11/16 [History] Ipratropium [Atrovent] 1 inh INH Q4HRRT PRN 12/11/16 [History] Multivitamin [Multiple Vitamins] 1 tab PO DAILY 12/11/16 [History] Fluticasone/Vilanterol [Breo Ellipta 100-25 MCG Inhalation Kit] 1 puff INH DAILY 12/16/16 [History] Aspirin [Ecotrin EC] 81 mg PO DAILY 12/27/16 [History] Metoprolol Succinate 50 mg PO DAILY 01/14/17 [History] Albuterol [Ventolin HFA] 2 puff INH Q6H PRN 09/26/17 [History] bisacodyL [Dulcolax] 5 mg PO DAILY PRN 09/29/17 [History] Losartan Potassium [Cozaar] 100 mg PO DAILY 03/02/19 [History] atorvaSTATin [Lipitor] 40 mg PO DAILY 03/02/19 [History] Past Medical History HEENT History: Reports: Impaired Vision, Other (See Below) Other HEENT History: wears glasses Cardiovascular History: Reports: Bypass, CAD, High Cholesterol, Hypertension, [place], Stents Other Cardiovascular History: Coronary artery bypass grafting x2. left internal mammary artery to the left anterior descending artery. Sphenous vein graft to the first obtuse marginal branch. Hx of edema Respiratory History: Reports: Bronchitis, Recurrent, COPD Gastrointestinal History: Reports: None Genitourinary History: Reports: Renal Disease, Other (See Below) Other Genitourinary History: Chronic kidney disease-mineral and bone disorder. Chronic kidney disease state 3. Acute kidney injury. Microalbuminuria [employer]IST History: Reports: , Other (See Below) Other [employer]IST History: pap smear abnormality of cervix Musculoskeletal History: Reports: Arthritis, Other (See Below) Other Musculoskeletal History: DEXA scan Neurological History: Reports: Vertigo, Other (See Below) Other Neuro History: Benign positional vertigo Psychiatric History: Reports: None Endocrine/Metabolic History: Reports: Obesity/BMI 30+ Hematologic History: Reports: Other (See Below) Immunologic History: Reports: None Oncologic (Cancer) History: Reports: Other (See Below) Other Oncologic History: skin Dermatologic History: Reports: Other (See Below) Other Dermatologic History: skin cancer - Infectious Disease History Infectious Disease History: Reports: Chicken Pox, Measles - Past Surgical History Head Surgeries/Procedures: Reports: None HEENT Surgical History: Reports: Cataract Surgery, Tonsillectomy Other HEENT Surgeries/Procedures: LENS IMPLANT BILAT EYES Cardiovascular Surgical History: Reports: Coronary Artery Bypass, Coronary Artery Stent, Other (See Below) Other Cardiovascular Surgeries/Procedures: CABG x 2 on December 06, 2016. Respiratory Surgical History: Reports: None GI Surgical History: Reports: Appendectomy, Colonoscopy, EGD Female Surgical History: Reports: Hysterectomy, Other (See Below) Other Female Surgeries/Procedures: hx of post menopausal problems, removed a growth Endocrine Surgical History: Reports: None Neurological Surgical History: Reports: None Musculoskeletal Surgical History: Reports: None Oncologic Surgical History: Reports: None Dermatological Surgical History: Reports: Skin Biopsy Social & Family History - Family History Family Medical History: No Pertinent Family History - Tobacco Use Tobacco Use Status *Q: Current Every Day Tobacco User Years of Tobacco use: 60 Packs/Tins Daily: 0.5 - Caffeine Use Caffeine Use: Reports: Coffee Caffeine Use Comment: COFFEE & DIET COKE OCCASSIONALLY - Recreational Drug Use Recreational Drug Use: No - Living Situation & Occupation Living situation: Reports: , Alone Occupation: Retired ED ROS GENERAL - Review of Systems Review Of Systems: Comprehensive ROS is negative, except as noted in HPI. ED EXAM,LOWER BACK PAIN/INJURY - Physical Exam Exam: See Below Exam Limited By: No Limitations General Appearance: Alert, Mild Distress Ears: Normal External Exam Nose: Normal Inspection Throat/Mouth: Normal Inspection Head: Atraumatic, Normocephalic Neck: Normal Inspection, Full Range of Motion Respiratory/Chest: No Respiratory Distress, Lungs Clear, Normal Breath Sounds Cardiovascular: Regular Rate, Rhythm GI/Abdominal: Normal Bowel Sounds, Soft, Other (mild tenderness general lower with deep palpation, No pain upper abdomen) Back Exam: Normal Inspection, Full Range of Motion. No: CVA Tenderness (L), CVA Tenderness (R), Muscle Spasm, Paraspinal Tenderness, Vertebral Tenderness Extremities: Normal Inspection Neurological: Alert, Normal Mood/Affect, Oriented x 3 Psychiatric: Normal Affect Skin Exam: Warm, Dry, Intact, Normal Color Course - Vital Signs Last Recorded V/S: Last Vital Signs Temp 96.9 F 05/10/20 18:16 Pulse 80 05/10/20 18:16 Resp 18 05/10/20 18:16 BP 199/76 H 05/10/20 18:16 Pulse Ox 91 L 05/10/20 18:16 - Orders/Labs/Meds Labs: Laboratory Tests 05/10/20 05/10/20 05/10/20 Range/Units 18:04 18:49 18:49 WBC 11.0 H (5.0-10.0) 10^3/uL RBC 4.59 (4.2-5.4) 10^6/uL Hgb 13.9 (12.0-16.0) g/dL Hct 41.7 (37.0-47.0) % MCV 90.8 (80-100) fL MCH 30.3 (27.0-34.0) pg MCHC 33.3 (33.0-35.0) g/dL Plt Count 186 (150-450) 10^3/uL Neut % (Auto) 90.9 H (42.2-75.2) % Lymph % (Auto) 7.5 L (20.5-50.1) % [place] % (Auto) 1.3 L (2-8) % Eos % (Auto) 0.2 L (1.0-3.0) % Baso % (Auto) 0.1 (0.0-1.0) % Sodium 137 (136-145) mmol/L Potassium 4.1 (3.5-5.1) mmol/L Chloride 101 (98-107) mmol/L Carbon Dioxide 25 (21-32) mmol/L Anion Gap 15.1 H (7-13) mEq/L BUN 18 (7-18) mg/dL Creatinine 0.94 (0.55-1.02) mg/dL Est Cr Clr Drug Dosing 39.01 mL/min Estimated GFR (MDRD) 58 Glucose 152 H (74-99) mg/dL Calcium 9.3 (8.5-10.1) mg/dL Urine Color Light yellow (YELLOW) Urine Appearance Slightly cloudy (CLEAR) Urine pH 6.5 (5.0-9.0) Ur Specific [place] 1.015 (1.005-1.030) Urine Protein Negative (NEGATIVE) Urine Glucose (UA) Negative (NEGATIVE) Urine Ketones Trace H (NEGATIVE) Urine Occult Blood Small H (NEGATIVE) Urine Nitrite Negative (NEGATIVE) Urine Bilirubin Negative (NEGATIVE) Urine Urobilinogen 0.2 (0.2-1.0) mg/dL Ur Leukocyte Esterase Negative (NEGATIVE) Urine RBC 5-10 H /HPF Urine WBC 0-5 (0-5/HPF) /HPF Ur Epithelial Cells Few (NOT SEEN) /HPF Urine Bacteria Rare (0-FEW/HPF) /HPF Urine Mucus Few H (NOT SEEN) /LPF Meds: Medications Discontinued Medications Generic Name Dose Route Start Last Admin Trade Name Freq PRN Reason Stop Dose Admin Ciprofloxacin 500 mg 05/10/20 20:32 05/10/20 20:41 Ciprofloxacin Hcl PO 05/10/20 20:33 500 mg ONETIME ONE Administration Iopamidol 100 ml 05/10/20 19:23 05/10/20 20:07 Isovue-300 (61%) IVPUSH 05/10/20 19:24 75 ml ONETIME ONE Administration Metronidazole 250 mg 05/10/20 20:32 05/10/20 20:41 Metronidazole PO 05/10/20 20:33 250 mg ONETIME ONE Administration Departure - Departure Time of Disposition: 20:41 Disposition: Home, Self-Care 01 Condition: Good Clinical Impression: Diverticulitis - Discharge Information *PRESCRIPTION DRUG MONITORING PROGRAM REVIEWED*: No *COPY OF PRESCRIPTION DRUG MONITORING REPORT IN PATIENT GODFREY: No Instructions: Diverticulitis, [id number] Forms: ED Department Discharge Additional Instructions: light diet advance as tolerated encourage fluids while on antibiotic cipro 500mg one twice daily for 7 days flagyl 250mg one three times daily for one week clinic follow up Friday Recheck sooner fi symptoms worsen vomiting fever, worsening pain stop augmentin Sepsis Event Note (ED) - Evaluation Sepsis Screening Result: No Definite Risk
== END 2020-05-10 20:50 | disposition home or self-care (01) ==
LOC: DL.ED 17:58
DX: K57.32 Diverticulitis of large intestine without perforation or abscess without bleeding (principal); I25.10 Atherosclerotic heart disease of native coronary artery without angina pectoris; E78.00 Pure hypercholesterolemia, unspecified; I25.2 Old myocardial infarction; J44.9 Chronic obstructive pulmonary disease, unspecified; I12.9 Hypertensive chronic kidney disease with stage 1 through stage 4 chronic kidney disease, or unspecified chronic kidney disease; N18.30 Chronic kidney disease, stage 3 unspecified; F17.210 Nicotine dependence, cigarettes, uncomplicated; E66.9 Obesity, unspecified; Z68.31 Body mass index [BMI] 31.0-31.9, adult; Z91.048 Other nonmedicinal substance allergy status; Z79.82 Long term (current) use of aspirin; Z79.899 Other long term (current) drug therapy
CPT/HCPCS: 36415; 74018; 74177; 80048; 81001; 85025; 99283; 99284; A9270; Q9967

== ENCOUNTER 2020-06-26 05:23 | Day surgery (SDC) | payer MEDICARE, BC ==
[~2020-06-26 05:23] MED LIST changes: -Midazolam 1 MG/ML 2 ML SDV IV ONE; -Midazolam 1 MG/ML 2 ML SDV ONE; -fentaNYL 100 MCG/2 ML SDV IV ONE; -fentaNYL 100 MCG/2 ML SDV ONE
[2020-06-26] MEDS ORDERED: Midazolam 1 MG/ML 2 ML SDV IV ONE ×5 (05:24→06:42)
[2020-06-26] MEDS ORDERED: fentaNYL 100 MCG/2 ML SDV IV ONE ×3 (05:24→06:34)
[2020-06-26] MEDS ORDERED: Dextrose 5%-0.45% NaCl 1,000 ML IV SCH (05:45)
[2020-06-26] MEDS ORDERED: fentaNYL 100 MCG/2 ML SDV ONE (06:16)
[2020-06-26] MEDS ORDERED: Midazolam 1 MG/ML 2 ML SDV ONE (06:16)
--- NOTE | 2020-06-26 07:37 | OR ---
DATE: 06/26/2020 PROCEDURES: Total colonoscopy, narrow-band imaging and multiple cold snare polypectomies. INSTRUMENT USED: PCF-H190DL Olympus video colonoscope. PREMEDICATIONS: Fentanyl 100 mcg intravenous, Versed 3 mg intravenous. Nasal O2 cannula. The procedure was done under pulse oximetry, BP recording, and cardiac rehab nurse. INDICATION: The patient with lower abdominal pain, unexplained. Colonoscopic examination is done for detection of any polypoid lesions and removal, endoscopic hemostasis therapy if needed. DESCRIPTION OF PROCEDURE: Initial rectal exam was unremarkable. Rigid anoscopy was normal. The colonoscope was passed with ease. Numerous scattered diverticula were noted in the distal left colon along with deformity. The scope was passed with ease up to the ileocecal area. In the descending colon, multiple benign-appearing diminutive polyps 2 in number, were noted, NBI views were obtained, photographs were taken, multiple cold snare polypectomies were done, the tissues were retrieved and sent for histopathology. The scope was passed with ease up to the ileocecal area. Photographs were taken of the normal- appearing cecum, identified by landmark of double-bulged ileocecal folds. No bleeding was noted from any of the visualized areas at the commencement of the examination. The bowel preparation was found to be adequate, Freeland scale 2 in all the regions, total number 6. No vascular ectasia. No large isolated ulcerations seen. No evidence of diffuse inflammatory bowel disease in the form of friability, contact bleeding, or ulcerations. Probing the proximal sides of folds and flexures using adequate distention and clearing up the stool material, withdrawal of the scope was made. Cecum to rectum time over 6 minutes. No bleeding was noted from any of the visualized areas at the completion of examination. IMPRESSION: 1. Diverticulosis. 2. Descending colon diminutive polyps. The patient tolerated the procedure well. [facility] /[id number]
[2020-06-26 10:12] VITALS: BP 146/54; PULSE 85
== END 2020-06-26 09:01 | disposition home or self-care (01) ==
LOC: DL.ENDO 05:23
PROVIDERS: ATTEND Internal Medicine Gastroenterology
DX: D12.4 Benign neoplasm of descending colon (principal); K57.30 Diverticulosis of large intestine without perforation or abscess without bleeding; E66.09 Other obesity due to excess calories; I25.10 Atherosclerotic heart disease of native coronary artery without angina pectoris; I10 Essential (primary) hypertension; E78.5 Hyperlipidemia, unspecified; J44.9 Chronic obstructive pulmonary disease, unspecified; Z98.890 Other specified postprocedural states; Z95.5 Presence of coronary angioplasty implant and graft; Z68.30 Body mass index [BMI] 30.0-30.9, adult
CPT/HCPCS: 45385; J2250; J3010; J7042; 88305

== ENCOUNTER 2021-01-15 12:02 | Emergency (ER) | payer MEDICARE, BC ==
[2021-01-15 12:15] VITALS: BP 169/76; PULSE 85
--- NOTE | 2021-01-15 14:01 | EDM.PDOC ---
ED HPI GENERAL MEDICAL PROBLEM - General Chief Complaint: Gastrointestinal Problem Stated Complaint: DIVERTICULITIS PER Walter WHEELER Time Seen by Provider: 01/15/21 14:00 Source of Information: Reports: Patient, Old Records, RN, RN Notes Reviewed History Limitations: Reports: No Limitations - History of Present Illness INITIAL COMMENTS - FREE TEXT/NARRATIVE: Jenna is a 80 y/o female who presents to the ED via personal vehicle with complaints of LLQ abdominal pain. The patient reports she was diagnosed with diverticulitis three days ago and has been taking metronidazole 500mg BID and ciprofloxacin 500mg BID since that time. She states she pain has continued in severity despite her antibiotics. She denies fever, shaking chills, shortness of breath, dyspepsia, nausea, vomiting, dysuria, hematuria, or constipation. She notes her last meal was a small breakfast. Her last bowel movement was this morning and was loose and watery. She denies tobacco, alcohol, or recreational drug use. Left Abdominal Pain Score (Numeric/FACES): 4 - Related Data Allergies Allergy/AdvReac Type Severity Reaction Status Date / Time environmental allergies Allergy Sneezing Uncoded 01/15/21 12:18 Home Meds: Home Meds Bioflav,Lemon/Vit Bcomp,C [Lipo-Flavonoid Plus Caplet] 1 each PO .PRN PRN 03/25/14 [History] Calcium Carbonate/Vitamin D3 [Calcium 500-Vit D3 200 Caplet] 1 tab PO DAILY 03/25/14 [History] Albuterol [Proventil Neb Soln] 2.5 mg NEB .PRN PRN 12/11/16 [History] Ipratropium [Atrovent] 1 inh INH Q4HRRT PRN 12/11/16 [History] Multivitamin [Multiple Vitamins] 1 tab PO DAILY 12/11/16 [History] Fluticasone/Vilanterol [Breo Ellipta 100-25 MCG Inhalation Kit] 1 puff INH DAILY 12/16/16 [History] Aspirin [Ecotrin EC] 81 mg PO DAILY 12/27/16 [History] Metoprolol Succinate 50 mg PO BEDTIME 01/14/17 [History] Albuterol [Ventolin HFA] 2 puff INH Q6H PRN 09/26/17 [History] bisacodyL [Dulcolax] 5 mg PO DAILY PRN 09/29/17 [History] Losartan Potassium [Cozaar] 100 mg PO DAILY 03/02/19 [History] atorvaSTATin [Lipitor] 40 mg PO DAILY 03/02/19 [History] Furosemide [Lasix] 20 mg PO .QOD 06/23/20 [History] Meclizine [Antivert] 25 mg PO TID PRN 06/23/20 [History] Metoprolol Succinate [Toprol XL] 25 mg PO DAILY 06/23/20 [History] Ciprofloxacin [Cipro XR] 500 mg PO BID 01/15/21 [History] metroNIDAZOLE [Flagyl] 500 mg PO TID 01/15/21 [History] Past Medical History HEENT History: Reports: Impaired Vision, Other (See Below) Other HEENT History: wears glasses Cardiovascular History: Reports: Bypass, CAD, High Cholesterol, Hypertension, [place], Stents Other Cardiovascular History: Coronary artery bypass grafting x2. left internal mammary artery to the left anterior descending artery. Sphenous vein graft to the first obtuse marginal branch. Hx of edema Respiratory History: Reports: Bronchitis, Recurrent, COPD Gastrointestinal History: Reports: None Other Gastrointestinal History: HX OF DIVERTICULITIS Genitourinary History: Reports: Renal Disease, Other (See Below) Other Genitourinary History: Chronic kidney disease-mineral and bone disorder. Chronic kidney disease state 3. Acute kidney injury. Microalbuminuria [employer] History: Reports: , Other (See Below) Other [employer] History: pap smear abnormality of cervix Musculoskeletal History: Reports: Arthritis, Other (See Below) Other Musculoskeletal History: DEXA scan Neurological History: Reports: Vertigo, Other (See Below) Other Neuro History: Benign positional vertigo Psychiatric History: Reports: None Endocrine/Metabolic History: Reports: Obesity/BMI 30+ Hematologic History: Reports: None Immunologic History: Reports: None Oncologic (Cancer) History: Reports: Other (See Below) Other Oncologic History: skin Dermatologic History: Reports: Other (See Below) Other Dermatologic History: skin cancer - Infectious Disease History Infectious Disease History: Reports: Chicken Pox, Measles - Past Surgical History Head Surgeries/Procedures: Reports: None HEENT Surgical History: Reports: Cataract Surgery, Tonsillectomy Other HEENT Surgeries/Procedures: LENS IMPLANT BILAT EYES Cardiovascular Surgical History: Reports: Coronary Artery Bypass, Coronary Artery Stent, Other (See Below) Other Cardiovascular Surgeries/Procedures: CABG x 2 on December 06, 2016. Respiratory Surgical History: Reports: None GI Surgical History: Reports: Appendectomy, Colonoscopy, EGD Other GI Surgeries/Procedures: S/P TUBULAR ADENOMA Female Surgical History: Reports: Hysterectomy, Other (See Below) Other Female Surgeries/Procedures: hx of post menopausal problems, removed a growth Endocrine Surgical History: Reports: None Neurological Surgical History: Reports: None Musculoskeletal Surgical History: Reports: None Oncologic Surgical History: Reports: None Dermatological Surgical History: Reports: Skin Biopsy Social & Family History - Family History Family Medical History: No Pertinent Family History - Tobacco Use Tobacco Use Status *Q: Current Every Day Tobacco User Years of Tobacco use: 40 Packs/Tins Daily: 0.5 - Caffeine Use Caffeine Use: Reports: Soda Caffeine Use Comment: COFFEE & DIET COKE OCCASSIONALLY - Recreational Drug Use Recreational Drug Use: No - Living Situation & Occupation Living situation: Reports: , Alone Occupation: Retired ED ROS GENERAL - Review of Systems Review Of Systems: Comprehensive ROS is negative, except as noted in HPI. ED EXAM, GI/ABD - Physical Exam Exam: See Below Exam Limited By: No Limitations General Appearance: Alert, Thin, Other (Ill appearing elderly female). No: Active Emesis Eyes: Bilateral: Normal Appearance, EOMI Ears: Normal External Exam, Normal Canal, Hearing Grossly Normal, Normal TMs Nose: Normal Inspection, Normal Mucosa, No Blood Throat/Mouth: Normal Inspection, Normal Oropharynx, Normal Voice, No Airway Compromise Head: Atraumatic, Normocephalic Neck: Normal Inspection, Supple, Non-Tender, Full Range of Motion. No: Lymphadenopathy (L), Lymphadenopathy (R) Respiratory/Chest: No Respiratory Distress, Lungs Clear, Normal Breath Sounds, No Accessory Muscle Use, Chest Non-Tender Cardiovascular: Normal Peripheral Pulses, Regular Rate, Rhythm, No Edema, No Gallop, No JVD, No Murmur, No Rub GI/Abdominal Exam: Soft, No Distention, No Abnormal Bruit, No Mass, Pelvis Stable, Tender (To palpation of bilateral lower quadrants), Abnormal Bowel Sounds (Hypoactive bowel sounds) (Female) Exam: Deferred Rectal (Female) Exam: Deferred Back Exam: Normal Inspection, Decreased Range of Motion (Chronic). No: CVA Tend erness (L), CVA Tenderness (R) Extremities: Normal Inspection, Normal Range of Motion, Normal Capillary Refill Neurological: Alert, Oriented, CN II-XII Intact, Normal Cognition, Normal Gait, No Motor/Sensory Deficits Psychiatric: Normal Affect, Normal Mood Skin Exam: Warm, Dry, Intact, Normal Color, No Rash. No: Cyanosis, Ecchymosis, Erythema, Jaundice, Mottled, Pallor, Petechiae Course - Vital Signs Last Recorded V/S: Last Vital Signs Temp 96.6 F L 01/15/21 12:12 Pulse 85 01/15/21 12:12 Resp 18 01/15/21 12:12 BP 169/76 H 01/15/21 12:12 Pulse Ox 93 L 01/15/21 12:12 - Orders/Labs/Meds Labs: Laboratory Tests 01/15/21 01/15/21 01/15/21 Range/Units 14:02 14:02 14:02 WBC 12.1 H (5.0-10.0) 10^3/uL RBC 5.13 (4.2-5.4) 10^6/uL Hgb 15.3 (12.0-16.0) g/dL Hct 45.8 (37.0-47.0) % MCV 89.3 (80-100) fL MCH 29.8 (27.0-34.0) pg MCHC 33.4 (33.0-35.0) g/dL Plt Count 219 (150-450) 10^3/uL Neut % (Auto) 76.2 H (42.2-75.2) % Lymph % (Auto) 12.0 L (20.5-50.1) % [place] % (Auto) 10.5 H (2-8) % Eos % (Auto) 1.1 (1.0-3.0) % Baso % (Auto) 0.2 (0.0-1.0) % Sodium 137 (136-145) mmol/L Potassium 4.0 (3.5-5.1) mmol/L Chloride 97 L (98-107) mmol/L Carbon Dioxide 29 (21-32) mmol/L Anion Gap 15.0 H (7-13) mEq/L BUN 11 (7-18) mg/dL Creatinine 0.94 (0.55-1.02) mg/dL Est Cr Clr Drug Dosing 38.38 mL/min Estimated GFR (MDRD) 57 BUN/Creatinine Ratio 11.7 (No establ ref range) Glucose 102 H (70-99) mg/dL Lactic Acid 1.2 (0.4-2.0) mmol/L Calcium 9.2 (8.5-10.1) mg/dL Magnesium 1.9 (1.8-2.4) mg/dL Total Bilirubin 0.5 (0.2-1.0) mg/dL AST 14 L (15-37) U/L ALT 16 (14-59) U/L Alkaline Phosphatase 95 (46-116) U/L C-Reactive Protein 7.7 H (0.0-0.9) mg/dL Total Protein 7.1 (6.4-8.2) g/dL Albumin 3.4 (3.4-5.0) g/dL Globulin 3.7 Albumin/Globulin Ratio 0.9 Amylase 28 (25-115) U/L Lipase 50 L (73-393) U/L Urine Color (YELLOW) Urine Appearance (CLEAR) Urine pH (5.0-9.0) Ur Specific [place] (1.005-1.030) Urine Protein (NEGATIVE) Urine Glucose (UA) (NEGATIVE) Urine Ketones (NEGATIVE) Urine Occult Blood (NEGATIVE) Urine Nitrite (NEGATIVE) Urine Bilirubin (NEGATIVE) Urine Urobilinogen (0.2-1.0) mg/dL Ur Leukocyte Esterase (NEGATIVE) Urine RBC (0-5) /HPF Urine WBC (0-5/HPF) /HPF Ur Epithelial Cells (NOT SEEN) /HPF Urine Bacteria (0-FEW/HPF) /HPF Urine Mucus (NOT SEEN) /LPF Urine Opiates Screen (NEGATIVE) Ur Oxycodone Screen (NEGATIVE) Urine Methadone Screen (NEGATIVE) Ur Barbiturates Screen (NEGATIVE) U Tricyclic Antidepress (NEGATIVE) Ur Phencyclidine Scrn (NEGATIVE) Ur Amphetamine Screen (NEGATIVE) U Methamphetamines Scrn (NEGATIVE) Urine MDMA Screen (NEGATIVE) U Benzodiazepines Scrn (NEGATIVE) Urine Cocaine Screen (NEGATIVE) U Marijuana (THC) Screen (NEGATIVE) Ethyl Alcohol < 3 (0) mg/dL 01/15/21 01/15/21 Range/Units 14:52 14:52 WBC (5.0-10.0) 10^3/uL RBC (4.2-5.4) 10^6/uL Hgb (12.0-16.0) g/dL Hct (37.0-47.0) % MCV (80-100) fL MCH (27.0-34.0) pg MCHC (33.0-35.0) g/dL Plt Count (150-450) 10^3/uL Neut % (Auto) (42.2-75.2) % Lymph % (Auto) (20.5-50.1) % [place] % (Auto) (2-8) % Eos % (Auto) (1.0-3.0) % Baso % (Auto) (0.0-1.0) % Sodium (136-145) mmol/L Potassium (3.5-5.1) mmol/L Chloride (98-107) mmol/L Carbon Dioxide (21-32) mmol/L Anion Gap (7-13) mEq/L BUN (7-18) mg/dL Creatinine (0.55-1.02) mg/dL Est Cr Clr Drug Dosing mL/min Estimated GFR (MDRD) BUN/Creatinine Ratio (No establ ref range) Glucose (70-99) mg/dL Lactic Acid (0.4-2.0) mmol/L Calcium (8.5-10.1) mg/dL Magnesium (1.8-2.4) mg/dL Total Bilirubin (0.2-1.0) mg/dL AST (15-37) U/L ALT (14-59) U/L Alkaline Phosphatase (46-116) U/L C-Reactive Protein (0.0-0.9) mg/dL Total Protein (6.4-8.2) g/dL Albumin (3.4-5.0) g/dL Globulin Albumin/Globulin Ratio Amylase (25-115) U/L Lipase (73-393) U/L Urine Color Nina (YELLOW) Urine Appearance Clear (CLEAR) Urine pH 5.5 (5.0-9.0) Ur Specific [place] >= 1.030 (1.005-1.030) Urine Protein 30 H (NEGATIVE) Urine Glucose (UA) Negative (NEGATIVE) Urine Ketones 40 H (NEGATIVE) Urine Occult Blood Trace-lysed H (NEGATIVE) Urine Nitrite Positive H (NEGATIVE) Urine Bilirubin Small H (NEGATIVE) Urine Urobilinogen 0.2 (0.2-1.0) mg/dL Ur Leukocyte Esterase Trace H (NEGATIVE) Urine RBC 5-10 H (0-5) /HPF Urine WBC 5-10 H (0-5/HPF) /HPF Ur Epithelial Cells Many H (NOT SEEN) /HPF Urine Bacteria Few (0-FEW/HPF) /HPF Urine Mucus Few H (NOT SEEN) /LPF Urine Opiates Screen Negative (NEGATIVE) Ur Oxycodone Screen Negative (NEGATIVE) Urine Methadone Screen Negative (NEGATIVE) Ur Barbiturates Screen Negative (NEGATIVE) U Tricyclic Antidepress Negative (NEGATIVE) Ur Phencyclidine Scrn Negative (NEGATIVE) Ur Amphetamine Screen Positive H (NEGATIVE) U Methamphetamines Scrn Negative (NEGATIVE) Urine MDMA Screen Negative (NEGATIVE) U Benzodiazepines Scrn Negative (NEGATIVE) Urine Cocaine Screen Negative (NEGATIVE) U Marijuana (THC) Screen Negative (NEGATIVE) Ethyl Alcohol (0) mg/dL Meds: Medications Discontinued Medications Generic Name Dose Route Start Last Admin Trade Name Freq PRN Reason Stop Dose Admin Acetaminophen 1,000 mg 01/15/21 14:48 01/15/21 14:56 Acetaminophen 500 Mg Tab PO 01/15/21 14:49 1,000 mg ONETIME ONE Administration Sodium Chloride 1,000 mls @ 999 mls/hr 01/15/21 15:24 01/15/21 15:28 Normal Saline IV 01/15/21 16:24 999 mls/hr .BOLUS ONE Administration Ceftriaxone Sodium 1 gm/ 50 mls @ 100 mls/hr 01/15/21 16:30 01/15/21 16:43 Sodium Chloride IV 01/15/21 16:59 100 mls/hr ONETIME ONE Administration Iopamidol 100 ml 01/15/21 14:55 01/15/21 15:12 Iopamidol 612 Mg/Ml 100 Ml Bottle IVPUSH 01/15/21 14:56 75 ml ONETIME ONE Administration Nystatin 5 ml 01/15/21 14:48 01/15/21 14:58 Nystatin Susp 100,000 Unit/Ml 5 Ml Ud Cup PO 01/15/21 14:49 5 ml ONETIME ONE Administration - Re-Assessments/Exams Free Text/Narrative Re-Assessment/Exam: 01/15/[address] abdomen/pelvis given worsening symptoms despite three days of abx. Nystatin solution administered for thrush. Will treat UTI with Rocephin 1gm and change Ciprofloxacin to Augmentin give previous micro. Findings of examination, lab work, and imaging reviewed with patient. Discussed supportive cares for UTI as well as need for follow up with PCP. Red flag signs and symptoms which would warrant reevaluation reviewed. Patient verbalized understanding and agreement with the plan of care. Departure - Departure Time of Disposition: 16:52 Disposition: Home, Self-Care 01 Condition: Good Clinical Impression: Diverticulitis, Thrush, oral Urinary tract infection Qualifiers: Urinary tract infection type: acute cystitis Hematuria presence: with hematuria Qualified Code(s): N30.01 - Acute cystitis with hematuria - Discharge Information *PRESCRIPTION DRUG MONITORING PROGRAM REVIEWED*: Not Applicable *COPY OF PRESCRIPTION DRUG MONITORING REPORT IN PATIENT [facility]: Not Applicable Instructions: Diverticulitis, [id number], Urinary Tract Infection, Adult, [id number] Referrals: PCP,None [Primary Care Provider] - Forms: ED Department Discharge Additional Instructions: Rx: Augmentin 875/125 Rx: Nystatin 1.) Stop taking the ciprofloxacin (Cipro), but continue the metronidazole (Flagyl). 2.) Take the Augmentin until gone, even as symptoms improve. 3.) Follow up with your primary care provider by the end of the week, or return to the emergency department should symptoms persist or worsen despite medications. 4.) Eat a bland diet, avoid spicy, greasy, high-fat foods. 5.) Drink plenty of water to stay hydrated. Sepsis Event Note (ED) - Evaluation Sepsis Screening Result: No Definite Risk
[2021-01-15 14:34] LABS: CHLORIDE,CL 97 mmol/L (98-107); SODIUM,NA 137 mmol/L (136-145)
[2021-01-15] MEDS ORDERED: Nystatin Susp 100,000 Unit/ML 5 ML UD Cup PO ONE (14:48)
[2021-01-15] MEDS ORDERED: Acetaminophen 500 MG Tab PO ONE (14:48)
[2021-01-15] MEDS ORDERED: Iopamidol 612 MG/ML 100 ML Bottle IVPUSH ONE (14:55)
[2021-01-15 15:05] LABS: AMPHETAMINES,URINE POSITIVE (NEGATIVE); BARBITURATES,URINE NEGATIVE (NEGATIVE); BENZODIAZEPINE,URINE NEGATIVE (NEGATIVE); MDMA (ECSTASY), URINE NEGATIVE (NEGATIVE); METHADONE,URINE NEGATIVE (NEGATIVE); METHAMPHETAMINES,URINE NEGATIVE (NEGATIVE); OPIATES,URINE NEGATIVE (NEGATIVE); OXYCODONE,URINE NEGATIVE (NEGATIVE); PHENCYCLIDINE,URINE NEGATIVE (NEGATIVE); TCA,URINE NEGATIVE (NEGATIVE)
[2021-01-15] MEDS ORDERED: Sodium Chloride 0.9% 1,000 ML IV ONE (15:24)
[2021-01-15] MEDS ORDERED: cefTRIAXone 1 GM in Sodium Chloride 0.9% 50 ML IV ONE (16:30)
--- NOTE | 2021-01-15 16:34 | CT ---
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 Reevaluate. Scan technique: Volume acquisition of data from the abdomen and pelvis obtained without oral contrast but during/after (delay) intravenous administration 75 cc nonionic Isovue contrast at 2 cc/s via injector while patient was lying supine on the Siemens multislice scanner [place], [place]. All data archived in the PACS system for storage, reformatting axial/sagittal/coronal planes and study. Interpretation: Improved radiographically (comparison CT 3 days prior). Sigmoid diverticulosis. 1. Numerous diverticula sigmoid colon with minimal associated adjacent pericolonic inflammatory changes. No evidence of colovesical or "rectosigmoid fistula" suggested on previous exam. No abscess, ascites or free air. 2. Pelvic adhesions possible. No pelvic or abdominal mass lesion, inflammatory "dirty" peritoneal fat, or signs of mechanical bowel obstruction. No mesenteric or retroperitoneal lymphadenopathy. 3. Distended gallbladder RUQ (no gallstones). Small hiatus hernia. Liver, stomach, spleen, pancreas and adrenal glands anatomically correct i.e. negative. 4. Several large renal cysts as noted previously. No urolithiasis or signs of obstructive uropathy. Symmetrically distended urinary bladder unremarkable i.e. no mucosal mass or intraluminal stone. 5. Densely calcified "cast" small caliber aortoiliac vessels. No aneurysm or dissection. 6. Osteopenia. Chronic L1-L2 disc disease with hypertrophic marginal spondylosis. No fracture or dislocation. 7. Lung bases clear. Normal cardiac silhouette. No pericardial or pleural effusions. CONCLUSION: Hiatus hernia. Diverticulosis sigmoid colon. Large renal cysts. Chronic L1-2 disc disease
== END 2021-01-15 17:17 | disposition home or self-care (01) ==
LOC: DL.ED 12:02
DX: N30.01 Acute cystitis with hematuria (principal); K57.32 Diverticulitis of large intestine without perforation or abscess without bleeding; B37.0 Candidal stomatitis; I25.10 Atherosclerotic heart disease of native coronary artery without angina pectoris; E78.00 Pure hypercholesterolemia, unspecified; I12.9 Hypertensive chronic kidney disease with stage 1 through stage 4 chronic kidney disease, or unspecified chronic kidney disease; N18.30 Chronic kidney disease, stage 3 unspecified; I25.2 Old myocardial infarction; E66.9 Obesity, unspecified; J44.9 Chronic obstructive pulmonary disease, unspecified; Z72.0 Tobacco use; Z68.30 Body mass index [BMI] 30.0-30.9, adult; Z79.82 Long term (current) use of aspirin; Z79.899 Other long term (current) drug therapy; Z91.09 Other allergy status, other than to drugs and biological substances
CPT/HCPCS: 36415; 74177; 80053; 80305; 80307; 81001; 82150; 83605; 83690; 83735; 85025; 86140; 87086; 96365; 99284; A9270; J0696; J7030; Q9967

== ENCOUNTER 2021-01-18 06:27 | Emergency (ER) | payer MEDICARE, BC ==
[2021-01-18 06:53] VITALS: BP 176/72; PULSE 79
--- NOTE | 2021-01-18 07:23 | EDM.PDOC ---
ED HPI GENERAL MEDICAL PROBLEM - General Chief Complaint: Genitourinary Problem Stated Complaint: BLOOD FROM VAGINA IN ON FRIDAY TOLD TO COME BACK Time Seen by Provider: 01/18/21 07:00 Source of Information: Reports: Patient, Old Records, RN, RN Notes Reviewed History Limitations: Reports: No Limitations - History of Present Illness INITIAL COMMENTS - FREE TEXT/NARRATIVE: Jenna is a 80 y/o female who presents to the ED via personal vehicle with complaints of left lower back pain, diarrhea, and vaginal discharge. The was diagnosed with diverticulitis six days ago by her PCP in the [facility] and was subsequently started on Cipro and Flagyl. She was evaluated in this facility four days ago for worsening lower abdominal pain, repeat CT was performed which revealed an improvement in the diverticulitis; a UA that day indicated UTI. Micro from past UTIs revealed resistance to Cipro, so Augmentin replaced the Cipro. The patient states overall her abdominal pain has improved, but she continues to experience diarrhea. Additionally, last night she noted blood on an undergarment pad which was there this morning, as well. She states she is s/p hysterectomy, she is uncertain if the cervix and ovaries were retained. Additionally, she notes nausea and weakness, which she feels is related to eating a clear liquid diet. She denies fever, shaking chills, palpitations, vomiting, melena, or hematochezia. She denies decreased motor or sensory function to her bilateral lower extremities, saddle paraesthesia, or inability to void. She has taken no PRN medications for her low back pain. Lower Abdomen Pain Score (Numeric/FACES): 2 - Related Data Allergies Allergy/AdvReac Type Severity Reaction Status Date / Time environmental allergies Allergy Mild Sneezing Uncoded 01/18/21 06:57 Home Meds: Home Meds Bioflav,Lemon/Vit Bcomp,C [Lipo-Flavonoid Plus Caplet] 1 each PO .PRN PRN 03/25/14 [History] Calcium Carbonate/Vitamin D3 [Calcium 500-Vit D3 200 Caplet] 1 tab PO DAILY 03/25/14 [History] Albuterol [Proventil Neb Soln] 2.5 mg NEB .PRN PRN 12/11/16 [History] Ipratropium [Atrovent] 1 inh INH Q4HRRT PRN 12/11/16 [History] Multivitamin [Multiple Vitamins] 1 tab PO DAILY 12/11/16 [History] Fluticasone/Vilanterol [Breo Ellipta 100-25 MCG Inhalation Kit] 1 puff INH DAILY 12/16/16 [History] Aspirin [Ecotrin EC] 81 mg PO DAILY 12/27/16 [History] Metoprolol Succinate 50 mg PO BEDTIME 01/14/17 [History] Albuterol [Ventolin HFA] 2 puff INH Q6H PRN 09/26/17 [History] bisacodyL [Dulcolax] 5 mg PO DAILY PRN 09/29/17 [History] Losartan Potassium [Cozaar] 100 mg PO DAILY 03/02/19 [History] atorvaSTATin [Lipitor] 40 mg PO DAILY 03/02/19 [History] Furosemide [Lasix] 20 mg PO .QOD 06/23/20 [History] Meclizine [Antivert] 25 mg PO TID PRN 06/23/20 [History] Metoprolol Succinate [Toprol XL] 25 mg PO DAILY 06/23/20 [History] metroNIDAZOLE [Flagyl] 500 mg PO TID 01/15/21 [History] Past Medical History HEENT History: Reports: Impaired Vision, Other (See Below) Other HEENT History: wears glasses Cardiovascular History: Reports: Bypass, CAD, High Cholesterol, Hypertension, [place], Stents Other Cardiovascular History: Coronary artery bypass grafting x2. left internal mammary artery to the left anterior descending artery. Sphenous vein graft to the first obtuse marginal branch. Hx of edema Respiratory History: Reports: Bronchitis, Recurrent, COPD Gastrointestinal History: Reports: None Other Gastrointestinal History: HX OF DIVERTICULITIS Genitourinary History: Reports: Renal Disease, Other (See Below) Other Genitourinary History: Chronic kidney disease-mineral and bone disorder. Chronic kidney disease state 3. Acute kidney injury. Microalbuminuria PHLEBOTOMY DIRECTOR History: Reports: , Other (See Below) Other PHLEBOTOMY DIRECTOR History: pap smear abnormality of cervix Musculoskeletal History: Reports: Arthritis, Other (See Below) Other Musculoskeletal History: DEXA scan Neurological History: Reports: Vertigo, Other (See Below) Other Neuro History: Benign positional vertigo Psychiatric History: Reports: None Endocrine/Metabolic History: Reports: Obesity/BMI 30+ Hematologic History: Reports: None Immunologic History: Reports: None Oncologic (Cancer) History: Reports: Other (See Below) Other Oncologic History: skin Dermatologic History: Reports: Other (See Below) Other Dermatologic History: skin cancer - Infectious Disease History Infectious Disease History: Reports: Chicken Pox, Measles - Past Surgical History Head Surgeries/Procedures: Reports: None HEENT Surgical History: Reports: Cataract Surgery, Tonsillectomy Other HEENT Surgeries/Procedures: LENS IMPLANT BILAT EYES Cardiovascular Surgical History: Reports: Coronary Artery Bypass, Coronary Artery Stent, Other (See Below) Other Cardiovascular Surgeries/Procedures: CABG x 2 on December 06, 2016. Respiratory Surgical History: Reports: None GI Surgical History: Reports: Appendectomy, Colonoscopy, EGD Other GI Surgeries/Procedures: S/P TUBULAR ADENOMA Female Surgical History: Reports: Hysterectomy, Other (See Below) Other Female Surgeries/Procedures: hx of post menopausal problems, removed a growth Endocrine Surgical History: Reports: None Neurological Surgical History: Reports: None Musculoskeletal Surgical History: Reports: None Oncologic Surgical History: Reports: None Dermatological Surgical History: Reports: Skin Biopsy Social & Family History - Family History Family Medical History: No Pertinent Family History - Tobacco Use Tobacco Use Status *Q: Current Some Day Tobacco User Years of Tobacco use: 60 Packs/Tins Daily: 0.5 - Caffeine Use Caffeine Use: Reports: None Caffeine Use Comment: COFFEE & DIET COKE OCCASSIONALLY - Recreational Drug Use Recreational Drug Use: No - Living Situation & Occupation Living situation: Reports: , Alone Occupation: Retired ED ROS GENERAL - Review of Systems Review Of Systems: Comprehensive ROS is negative, except as noted in HPI. ED EXAM, RENAL/ - Physical Exam Exam: See Below Exam Limited By: No Limitations General Appearance: Alert, No Apparent Distress Eye Exam: Bilateral Eye: EOMI, Normal Inspection, PERRL (3mm) Ears: Normal External Exam, Normal Canal, Hearing Grossly Normal, Normal TMs Nose: Normal Inspection, Normal Mucosa, No Blood Throat/Mouth: Normal Voice, No Airway Compromise, Inflammation (White coatto tongue markedly reduced since 01/15/21) Head: Atraumatic, Normocephalic Neck: Normal Inspection, Supple, Non-Tender, Full Range of Motion Respiratory/Chest: No Respiratory Distress, Lungs Clear, Normal Breath Sounds, No Accessory Muscle Use, Chest Non-Tender Cardiovascular: Normal Peripheral Pulses, Regular Rate, Rhythm, No Edema, No Gallop, No JVD, No Murmur, No Rub GI/Abdominal: Normal Bowel Sounds, Soft, No Distention, No Abnormal Bruit, No Mass, Pelvis Stable, Tender (To palpation of bilateral lower quadrants). No: Guarding, Rigid, Rebound (Female) Exam: Normal Speculum Exam, Normal Bimanual Exam, Vaginal Discharge (Christopher/brown, stool-like discharge). No: Normal External Exam (Erythema and maceration to labia majora and labia minora; Stool throughout vulva, including vaginal vault), Cervical Dilatation, Cervical Discharge, Cervical Fluid, Cervical Lesions, Cervix Motion Tenderness, Vaginal Bleeding, Vaginal Lesions, Vaginal Tears Rectal (Female) Exam: Normal Exam, Normal Rectal Tone, Hemorrhoids. No: Black Stool, Bloody Stool, Fecal Impaction, Rectal Fissure, Tenderness Back Exam: Normal Inspection, Full Range of Motion, Muscle Spasm (To left lower back). No: CVA Tenderness (L), CVA Tenderness (R) Extremities: Normal Inspection, Normal Range of Motion, Non-Tender, No Pedal Edema, Normal Capillary Refill Neurological: Alert, Oriented, CN II-XII Intact, Normal Cognition, Normal Gait, No Motor/Sensory Deficits Psychiatric: Normal Affect, Tearful Skin Exam: Warm, Dry, Intact, Normal Color, No Rash Lymphatic: No Adenopathy Course - Vital Signs Last Recorded V/S: Last Vital Signs Temp 97.3 F 01/18/21 06:37 Pulse 79 01/18/21 06:37 Resp 18 01/18/21 06:37 BP 176/72 H 01/18/21 06:37 Pulse Ox 92 L 01/18/21 06:37 - Orders/Labs/Meds Orders: Active Orders 24 hr Category Date Time Status CULTURE URINE [RM] Stat Lab 01/18/21 08:07 Received Labs: Laboratory Tests 01/18/21 01/18/21 01/18/21 Range/Units 07:48 07:48 08:07 WBC 10.9 H (5.0-10.0) 10^3/uL RBC 4.79 (4.2-5.4) 10^6/uL Hgb 14.4 (12.0-16.0) g/dL Hct 42.2 (37.0-47.0) % MCV 88.1 (80-100) fL MCH 30.1 (27.0-34.0) pg MCHC 34.1 (33.0-35.0) g/dL Plt Count 221 (150-450) 10^3/uL Neut % (Auto) 76.8 H (42.2-75.2) % Lymph % (Auto) 10.9 L (20.5-50.1) % [place] % (Auto) 11.2 H (2-8) % Eos % (Auto) 0.9 L (1.0-3.0) % Baso % (Auto) 0.2 (0.0-1.0) % Sodium 140 (136-145) mmol/L Potassium 3.1 L (3.5-5.1) mmol/L Chloride 101 (98-107) mmol/L Carbon Dioxide 29 (21-32) mmol/L Anion Gap 13.1 H (7-13) mEq/L BUN 5 L (7-18) mg/dL Creatinine 0.78 (0.55-1.02) mg/dL Est Cr Clr Drug Dosing 45.19 mL/min Estimated GFR (MDRD) > 60 BUN/Creatinine Ratio 6.4 (No establ ref range) Glucose 129 H (70-99) mg/dL Calcium 8.6 (8.5-10.1) mg/dL Magnesium 1.8 (1.8-2.4) mg/dL Total Bilirubin 0.4 (0.2-1.0) mg/dL AST 13 L (15-37) U/L ALT 16 (14-59) U/L Alkaline Phosphatase 82 (46-116) U/L C-Reactive Protein 1.4 H (0.0-0.9) mg/dL Total Protein 6.4 (6.4-8.2) g/dL Albumin 3.1 L (3.4-5.0) g/dL Globulin 3.3 Albumin/Globulin Ratio 0.94 Urine Color Nina (YELLOW) Urine Appearance Slightly cloudy (CLEAR) Urine pH 6.5 (5.0-9.0) Ur Specific [place] 1.020 (1.005-1.030) Urine Protein 30 H (NEGATIVE) Urine Glucose (UA) Negative (NEGATIVE) Urine Ketones Trace H (NEGATIVE) Urine Occult Blood Moderate H (NEGATIVE) Urine Nitrite Positive H (NEGATIVE) Urine Bilirubin Small H (NEGATIVE) Urine Urobilinogen 0.2 (0.2-1.0) mg/dL Ur Leukocyte Esterase Small H (NEGATIVE) U Hyaline Cast (Auto) Few Urine RBC 10-20 H (0-5) /HPF Urine WBC 10-20 H (0-5/HPF) /HPF Ur Epithelial Cells Few (NOT SEEN) /HPF Amorphous Sediment Few (NOT SEEN) /HPF Urine Bacteria Few (0-FEW/HPF) /HPF Urine Mucus Moderate H (NOT SEEN) /LPF Meds: Medications Discontinued Medications Generic Name Dose Route Start Last Admin Trade Name Alfred PRN Reason Stop Dose Admin Sodium Chloride 500 mls @ 500 mls/hr 01/18/21 08:16 01/18/21 08:22 Normal Saline IV 01/18/21 09:15 500 mls/hr .BOLUS ONE Administration Potassium Chloride 20 meq/ 100 mls @ 50 mls/hr 01/18/21 08:38 01/18/21 08:50 Premix IV 01/18/21 10:37 50 mls/hr ONETIME ONE Administration - Re-Assessments/Exams Free Text/Narrative Re-Assessment/Exam: 01/18/21 Wet prep sent. NS 500cc IV bolus administered. KCl 20 mEq administered. Findings of examination and lab work reviewed with patient. Discussed supportive cares and appropriate perineal hygiene. Patient instructed to follow up with her PCP early next week. Red flag signs and symptoms which would warrant reevaluation reviewed. Patient verbalized understanding and agreement with the plan of care. Departure - Departure Time of Disposition: 11:02 Disposition: Home, Self-Care 01 Clinical Impression: Vaginitis and vulvovaginitis, Hypokalemia Diarrhea Qualifiers: Diarrhea type: infectious Qualified Code(s): A09 - Infectious gastroenteritis and colitis, unspecified - Discharge Information *PRESCRIPTION DRUG MONITORING PROGRAM REVIEWED*: Not Applicable *COPY OF PRESCRIPTION DRUG MONITORING REPORT IN PATIENT [facility]: Not Applicable Instructions: Vaginitis, [id number] Forms: ED Department Discharge Additional Instructions: 1.) Apply barrier cream, such as Desitin, to your genital and rectal area, as diarrhea persists. 2.) You may advance your diet, as tolerated. No need to continue on a liquid diet. 3.) You may take acetaminophen (Tylenol) 650mg every six hours, as back pain persists. 4.) Follow up with your primary care provider early next week, or return to the emergency department with any worsening symptoms. Sepsis Event Note (ED) - Evaluation Sepsis Screening Result: No Definite Risk - Focused Exam Vital Signs: Vital Signs Temp Pulse Resp BP Pulse Ox 01/18/21 06:37 97.3 F 79 18 176/72 H 92 L - My Orders Last 24 Hours: My Active Orders 01/18/21 08:07 CULTURE URINE [RM] Stat - Assessment/Plan Last 24 Hours: My Active Orders 01/18/21 08:07 CULTURE URINE [RM] Stat
[2021-01-18 08:13] LABS: ANION GAP 13.1 mEq/L (7-13); CHLORIDE,CL 101 mmol/L (98-107); SODIUM,NA 140 mmol/L (136-145)
[2021-01-18] MEDS: Sodium Chloride 0.9% 500 ML IV ONE (08:22)
[2021-01-18] MEDS: Potassium Chloride 20 MEQ in Premix Bag 1 BAG IV ONE (08:50)
== END 2021-01-18 11:24 | disposition home or self-care (01) ==
LOC: DL.ED 06:27
DX: N76.0 Acute vaginitis (principal); A09 Infectious gastroenteritis and colitis, unspecified; E87.6 Hypokalemia; E78.00 Pure hypercholesterolemia, unspecified; I10 Essential (primary) hypertension; J44.9 Chronic obstructive pulmonary disease, unspecified; E66.9 Obesity, unspecified; Z68.29 Body mass index [BMI] 29.0-29.9, adult; Z72.0 Tobacco use; Z79.82 Long term (current) use of aspirin; Z91.09 Other allergy status, other than to drugs and biological substances; Z79.899 Other long term (current) drug therapy
CPT/HCPCS: 36415; 80053; 81001; 82272; 83735; 85025; 86140; 87086; 87210; 96365; 96366; 99284-25; J3480; J7030

== ENCOUNTER 2021-05-26 06:46 | Inpatient (IN) | payer MEDICARE, BC ==
[2021-05-26] MEDS ORDERED: Albuterol/Ipratropium 3.0-0.5 MG/3 ML Neb Soln NEB ONE ×2 (07:04→08:24)
[2021-05-26] MEDS ORDERED: methylPREDNISolone Sodium Succinate 125 MG/2 ML SDV IVPUSH ONE (07:04)
--- NOTE | 2021-05-26 07:07 | EDM.PDOC ---
ED HPI GENERAL MEDICAL PROBLEM - General Chief Complaint: Respiratory Problem Stated Complaint: AMBULANCE Time Seen by Provider: 05/26/21 07:00 Source of Information: Reports: Patient, EMS, Old Records, RN, RN Notes Reviewed History Limitations: Reports: No Limitations - History of Present Illness INITIAL COMMENTS - FREE TEXT/NARRATIVE: Pt arrives to ER from home by ambulance with c/o progressively worsening shortness of breath over the past several days. Pt report mostly dry cough with occasional clear-white sputum production. Admits to mild lower extremity edema. Denies fever, chills, chest pain, or orthopnea. Hx of COPD with prn use of nebulizer and supplemental home oxygen at night. EMS reports finding pt with oxygen at 2L/min by NC with saturations of 85% and audible wheezes. Pt states she has become so weak that she cannot walk across a room without stopping or assistance. 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, Oxygen - Related Data Allergies Allergy/AdvReac Type Severity Reaction Status Date / Time environmental allergies Allergy Mild Sneezing Uncoded 01/18/21 06:57 Home Meds: Home Meds Bioflav,Lemon/Vit Bcomp,C [Lipo-Flavonoid Plus Caplet] 1 each PO .PRN PRN 03/25/14 [History] Calcium Carbonate/Vitamin D3 [Calcium 500-Vit D3 200 Caplet] 1 tab PO DAILY 03/25/14 [History] Albuterol [Proventil Neb Soln] 2.5 mg NEB .PRN PRN 12/11/16 [History] Ipratropium [Atrovent] 1 inh INH Q4HRRT PRN 12/11/16 [History] Multivitamin [Multiple Vitamins] 1 tab PO DAILY 12/11/16 [History] Fluticasone/Vilanterol [Breo Ellipta 100-25 MCG Inhalation Kit] 1 puff INH DAILY 12/16/16 [History] Aspirin [Ecotrin EC] 81 mg PO DAILY 12/27/16 [History] Metoprolol Succinate 50 mg PO BEDTIME 01/14/17 [History] Albuterol [Ventolin HFA] 2 puff INH Q6H PRN 09/26/17 [History] bisacodyL [Dulcolax] 5 mg PO DAILY PRN 09/29/17 [History] Losartan Potassium [Cozaar] 100 mg PO DAILY 03/02/19 [History] atorvaSTATin [Lipitor] 40 mg PO DAILY 03/02/19 [History] Furosemide [Lasix] 20 mg PO .QOD 06/23/20 [History] Meclizine [Antivert] 25 mg PO TID PRN 06/23/20 [History] Metoprolol Succinate [Toprol XL] 25 mg PO DAILY 06/23/20 [History] metroNIDAZOLE [Flagyl] 500 mg PO TID 01/15/21 [History] Past Medical History HEENT History: Reports: Impaired Vision, Other (See Below) Other HEENT History: wears glasses Cardiovascular History: Reports: Bypass, CAD, High Cholesterol, Hypertension, CA, Stents Other Cardiovascular History: Coronary artery bypass grafting x2. left internal mammary artery to the left anterior descending artery. Sphenous vein graft to the first obtuse marginal branch. Hx of edema Respiratory History: Reports: Bronchitis, Recurrent, COPD Gastrointestinal History: Reports: None Other Gastrointestinal History: HX OF DIVERTICULITIS Genitourinary History: Reports: Renal Disease, Other (See Below) Other Genitourinary History: Chronic kidney disease-mineral and bone disorder. Chronic kidney disease state 3. Acute kidney injury. 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: Reports: , Other (See Below) Other 3D DESIGNER History: pap smear abnormality of cervix Musculoskeletal History: Reports: Arthritis, Other (See Below) Other Musculoskeletal History: DEXA scan Neurological History: Reports: Vertigo, Other (See Below) Other Neuro History: Benign positional vertigo Psychiatric History: Reports: None Endocrine/Metabolic History: Reports: Obesity/BMI 30+ Hematologic History: Reports: None Immunologic History: Reports: None Oncologic (Cancer) History: Reports: Other (See Below) Other Oncologic History: skin Dermatologic History: Reports: Other (See Below) Other Dermatologic History: skin cancer - Infectious Disease History Infectious Disease History: Reports: Chicken Pox, Measles - Past Surgical History Head Surgeries/Procedures: Reports: None HEENT Surgical History: Reports: Cataract Surgery, Tonsillectomy Other HEENT Surgeries/Procedures: LENS IMPLANT BILAT EYES Cardiovascular Surgical History: Reports: Coronary Artery Bypass, Coronary Artery Stent, Other (See Below) Other Cardiovascular Surgeries/Procedures: CABG x 2 on December 06, 2016. Respiratory Surgical History: Reports: None GI Surgical History: Reports: Appendectomy, Colonoscopy, EGD Other GI Surgeries/Procedures: S/P TUBULAR ADENOMA Female Surgical History: Reports: Hysterectomy, Other (See Below) Other Female Surgeries/Procedures: hx of post menopausal problems, removed a growth Endocrine Surgical History: Reports: None Neurological Surgical History: Reports: None Musculoskeletal Surgical History: Reports: None Oncologic Surgical History: Reports: None Dermatological Surgical History: Reports: Skin Biopsy Social & Family History - Family History Family Medical History: No Pertinent Family History - Tobacco Use Tobacco Use Status *Q: Former Tobacco User - Caffeine Use Caffeine Use: Reports: None Caffeine Use Comment: COFFEE & DIET COKE OCCASSIONALLY - Living Situation & Occupation Living situation: Reports: , Alone Occupation: Retired ED ROS GENERAL - Review of Systems Review Of Systems: Comprehensive ROS is negative, except as noted in HPI. ED EXAM, GENERAL - Physical Exam Exam: See Below Exam Limited By: No Limitations General Appearance: Alert, Mild Distress Eye Exam: Bilateral Eye: Normal Inspection Nose: Normal Inspection Throat/Mouth: Normal Lips, Normal Voice, No Airway Compromise Head: Atraumatic, Normocephalic Neck: Normal Inspection Respiratory/Chest: Chest Non-Tender, Decreased Breath Sounds, Rales, Wheezing, Other (Midline sternotomy scar, old.). No: Crackles, Rhonchi, Stridor Cardiovascular: Regular Rate, Rhythm, Other (+1 B/L L.E. edema) GI/Abdominal: Normal Bowel Sounds, Soft, Non-Tender Back Exam: Normal Inspection Extremities: Normal Range of Motion, Non-Tender, Normal Capillary Refill, Pedal Edema Neurological: Alert, Oriented, No Motor/Sensory Deficits Psychiatric: Normal Affect, Normal Mood Skin Exam: Warm, Dry, Intact, Normal Color, No Rash #1 Interpretation EKG Date: 05/26/21 Time: 06:57 Rhythm: Other Rate (Beats/Min): 64 QRS: LBBB Comparison: No Change Course - Vital Signs Last Recorded V/S: Last Vital Signs Temp 98.8 F 05/26/21 07:10 Pulse 69 05/26/21 09:12 Resp 28 H 05/26/21 07:10 BP 202/64 H 05/26/21 07:10 Pulse Ox 96 05/26/21 07:10 - Orders/Labs/Meds Orders: Active Orders 24 hr Category Date Time Status Peripheral IV Care [RC] . DIRECTED Care 05/26/21 07:04 Active RT Aerosol Therapy [RC] ASDIRECTED Care 05/26/21 07:04 Active RT Aerosol Therapy [RC] ASDIRECTED Care 05/26/21 08:25 Active CULTURE BLOOD [BC] Stat Lab 05/26/21 07:18 Received CULTURE BLOOD [BC] Stat Lab 05/26/21 08:22 Received Sodium Chloride 0.9% [Saline Flush] Med 05/26/21 07:04 Active 10 ml FLUSH ASDIRECTED PRN Blood Culture x2 Reflex Set [OM.PC] Stat Oth 05/26/21 07:03 Ordered Peripheral IV Insertion Adult [OM.PC] Stat Oth 05/26/21 07:04 Ordered Medication Orders Sodium Chloride (Sodium Chloride 0.9% 10 Ml Syringe) 10 ml FLUSH ASDIRECTED PRN PRN Reason: Keep Vein Open Last Admin: 05/26/21 07:34 Dose: 10 ml Documented by: CAREY Labs: Laboratory Tests 05/26/21 05/26/21 05/26/21 Range/Units 06:54 07:18 07:18 WBC 9.8 (5.0-10.0) 10^3/uL RBC 4.21 (4.2-5.4) 10^6/uL Hgb 12.6 D (12.0-16.0) g/dL Hct 39.3 (37.0-47.0) % MCV 93.3 D (80-100) fL MCH 29.9 (27.0-34.0) pg MCHC 32.1 L (33.0-35.0) g/dL Plt Count 174 (150-450) 10^3/uL Neut % (Auto) 78.2 H (42.2-75.2) % Lymph % (Auto) 9.5 L (20.5-50.1) % [place] % (Auto) 9.6 H (2-8) % Eos % (Auto) 2.6 (1.0-3.0) % Baso % (Auto) 0.1 (0.0-1.0) % Sodium 143 (136-145) mmol/L Potassium 4.8 D (3.5-5.1) mmol/L Chloride 104 (98-107) mmol/L Carbon Dioxide 32 (21-32) mmol/L Anion Gap 11.8 (7-13) mEq/L BUN 14 (7-18) mg/dL Creatinine 0.87 (0.55-1.02) mg/dL Est Cr Clr Drug Dosing 41.47 mL/min Estimated GFR (MDRD) > 60 BUN/Creatinine Ratio 16.1 (No establ ref range) Glucose 116 H (70-99) mg/dL Calcium 8.8 (8.5-10.1) mg/dL Total Bilirubin 0.5 (0.2-1.0) mg/dL AST 20 (15-37) U/L ALT 21 (14-59) U/L Alkaline Phosphatase 110 (46-116) U/L Troponin I High Sens 21 (<=51) pg/mL B-Natriuretic Peptide (0-100) pg/ml Total Protein 6.8 (6.4-8.2) g/dL Albumin 3.4 (3.4-5.0) g/dL Globulin 3.4 Albumin/Globulin Ratio 1.0 Influenza Type A RNA Negative (NEGATIVE) RSV RNA (INAAT) Negative (NEGATIVE) Influenza Type B RNA Negative (NEGATIVE) SARS-CoV-2 RNA (BERTO) Negative (NEGATIVE) 05/26/21 Range/Units 07:18 WBC (5.0-10.0) 10^3/uL RBC (4.2-5.4) 10^6/uL Hgb (12.0-16.0) g/dL Hct (37.0-47.0) % MCV (80-100) fL MCH (27.0-34.0) pg MCHC (33.0-35.0) g/dL Plt Count (150-450) 10^3/uL Neut % (Auto) (42.2-75.2) % Lymph % (Auto) (20.5-50.1) % [place] % (Auto) (2-8) % Eos % (Auto) (1.0-3.0) % Baso % (Auto) (0.0-1.0) % Sodium (136-145) mmol/L Potassium (3.5-5.1) mmol/L Chloride (98-107) mmol/L Carbon Dioxide (21-32) mmol/L Anion Gap (7-13) mEq/L BUN (7-18) mg/dL Creatinine (0.55-1.02) mg/dL Est Cr Clr Drug Dosing mL/min Estimated GFR (MDRD) BUN/Creatinine Ratio (No establ ref range) Glucose (70-99) mg/dL Calcium (8.5-10.1) mg/dL Total Bilirubin (0.2-1.0) mg/dL AST (15-37) U/L ALT (14-59) U/L Alkaline Phosphatase (46-116) U/L Troponin I High Sens (<=51) pg/mL B-Natriuretic Peptide 504 H (0-100) pg/ml Total Protein (6.4-8.2) g/dL Albumin (3.4-5.0) g/dL Globulin Albumin/Globulin Ratio Influenza Type A RNA (NEGATIVE) RSV RNA (INAAT) (NEGATIVE) Influenza Type B RNA (NEGATIVE) SARS-CoV-2 RNA (BERTO) (NEGATIVE) Meds: Medications Generic Name Dose Route Start Last Admin Trade Name Freq PRN Reason Stop Dose Admin Sodium Chloride 10 ml 05/26/21 07:04 05/26/21 07:34 Sodium Chloride 0.9% 10 Ml Syringe FLUSH 10 ml ASDIRECTED PRN Administration Keep Vein Open Discontinued Medications Generic Name Dose Route Start Last Admin Trade Name Freq PRN Reason Stop Dose Admin Albuterol/Ipratropium 3 ml 05/26/21 07:04 05/26/21 07:33 Albuterol/Ipratropium 3.0-0.5 Mg/3 Ml Neb Cristian [facility] 05/26/21 07:05 3 ml ONETIME ONE Administration Albuterol/Ipratropium 3 ml 05/26/21 08:24 05/26/21 09:09 Albuterol/Ipratropium 3.0-0.5 Mg/3 Ml Neb Cristian NEB 05/26/21 08:25 3 ml ONETIME ONE Administration Furosemide 80 mg 05/26/21 09:22 05/26/21 09:45 Furosemide 100 Mg/10 Ml Sdv IVPUSH 05/26/21 09:23 80 mg ONETIME ONE Administration Methylprednisolone Sodium Succinate 125 mg 05/26/21 07:04 05/26/21 07:35 Methylprednisolone Sodium Succinate 125 Mg/2 Ml Sdv IVPUSH 05/26/21 07:05 125 mg ONETIME ONE Administration - Radiology Interpretation Free Text/Narrative:: [facility] [place] [facility] Final Radiology Report Call: [phone] assistance Online chat: [email or web address] Name: JUSTIN HERNANDEZ Age: 80Years F Date: 05/26/2021 SSN: -- : [id number] Study: CR CHEST 1V FRONTAL Requesting Physician: NAHID LAYTON Images: 1 Addl Studies: Provided Clinical History: short of breath, wheezing, Hx COPD Contrast: Contrast Medium: Contrast Amount: Contrast Method: CONFIDENTIALITY STATEMENT This report is intended only for use by the referring physician, and only in accordance with law. If you received this in error, call [phone]. Page 1 of 1 PROCEDURE INFORMATION: Exam: XR Chest Exam date and time: 05/26/2021 7:13 AM Age: 80 years old Clinical indication: Other: Short of breath, wheezing, HX copd TECHNIQUE: Imaging protocol: XR of the chest. Views: 1 view. COMPARISON: CR Chest 1V Frontal 03/02/2019 8:00 AM FINDINGS: Lungs: Diffuse hazy interstitial prominence throughout both lungs. This probably represents interstitial edema. No focal airspace consolidation. Pulmonary hyperexpansion, similar to previous. Pleural spaces: Unremarkable. No pleural effusion. No pneumothorax. Heart/Mediastinum: Surgical changes consistent with CABG again noted. Bones/joints: Unremarkable. IMPRESSION: 1. Diffuse interstitial edema probably secondary to cardiac failure. 2. Chronic obstructive pulmonary disease. Thank you for allowing us to participate in the care of your patient. Dictated and Authenticated by: Phong Corrigan MD 05/26/2021 9:21 AM Central Time ([place] & [place]) Departure - Departure Time of Disposition: 09:49 (admitted to Dr. Carson) Disposition: Admitted As Inpatient 67 Condition: Fair Clinical Impression: Acute exacerbation of chronic obstructive pulmonary disease (COPD) Pulmonary edema Qualifiers: Chronicity: acute Qualified Code(s): J81.0 - Acute pulmonary edema - Discharge Information *PRESCRIPTION DRUG MONITORING PROGRAM REVIEWED*: Not Applicable *COPY OF PRESCRIPTION DRUG MONITORING REPORT IN PATIENT [place]: Not Applicable Forms: ED Department Discharge Sepsis Event Note (ED) - Focused Exam Vital Signs: Vital Signs Temp Pulse Resp BP Pulse Ox 05/26/21 09:12 69 05/26/21 07:10 98.8 F 68 28 H 202/64 H 96 - My Orders Last 24 Hours: My Active Orders 05/26/21 07:03 Blood Culture x2 Reflex Set [OM.PC] Stat 05/26/21 07:04 Peripheral IV Care [RC] . DIRECTED RT Aerosol Therapy [RC] ASDIRECTED Sodium Chloride 0.9% [Saline Flush] 10 ml FLUSH ASDIRECTED PRN Peripheral IV Insertion Adult [OM.PC] Stat 05/26/21 07:18 CULTURE BLOOD [BC] Stat 05/26/21 08:22 CULTURE BLOOD [BC] Stat 05/26/21 08:25 RT Aerosol Therapy [RC] ASDIRECTED - Assessment/Plan Last 24 Hours: My Active Orders 05/26/21 07:03 Blood Culture x2 Reflex Set [OM.PC] Stat 05/26/21 07:04 Peripheral IV Care [RC] . DIRECTED RT Aerosol Therapy [RC] ASDIRECTED Sodium Chloride 0.9% [Saline Flush] 10 ml FLUSH ASDIRECTED PRN Peripheral IV Insertion Adult [OM.PC] Stat 05/26/21 07:18 CULTURE BLOOD [BC] Stat 05/26/21 08:22 CULTURE BLOOD [BC] Stat 05/26/21 08:25 RT Aerosol Therapy [RC] ASDIRECTED
[2021-05-26] MEDS: Sodium Chloride 0.9% 10 ML Syringe FLUSH PRN (07:34)
[2021-05-26 07:49] LABS: ANION GAP 11.8 mEq/L (7-13); CHLORIDE,CL 104 mmol/L (98-107); SODIUM,NA 143 mmol/L (136-145)
[2021-05-26 08:04] LABS: CORONAVIRUS COVID-19 NAA NEGATIVE (NEGATIVE); RESPIRATORY SYNCYTIAL VIR NAA NEGATIVE (NEGATIVE)
--- NOTE | 2021-05-26 09:21 | CR ---
PROCEDURE INFORMATION: Exam: XR Chest Exam date and time: 05/26/2021 7:13 AM Age: 80 years old Clinical indication: Other: Short of breath, wheezing, HX copd TECHNIQUE: Imaging protocol: XR of the chest. Views: 1 view. COMPARISON: CR Chest 1V Frontal 03/02/2019 8:00 AM FINDINGS: Lungs: Diffuse hazy interstitial prominence throughout both lungs. This probably represents interstitial edema. No focal airspace consolidation. Pulmonary hyperexpansion, similar to previous. Pleural spaces: Unremarkable. No pleural effusion. No pneumothorax. Heart/Mediastinum: Surgical changes consistent with CABG again noted. Bones/joints: Unremarkable. IMPRESSION: 1. Diffuse interstitial edema probably secondary to cardiac failure. 2. Chronic obstructive pulmonary disease.
[2021-05-26] MEDS ORDERED: Furosemide 100 MG/10 ML SDV IVPUSH ONE (09:22)
--- NOTE | 2021-05-26 11:31 | PCM.HP ---
H&P History of Present Illness - General Date of Service: 05/26/21 Admit Problem/Dx: Admission Diagnosis/Problem Admission Diagnosis/Problem COPD, Moderate chronic obstructive pulmonary disease Source of Information: Patient, Old Records History Limitations: Reports: No Limitations - History of Present Illness Initial Comments - Free Text/Narative: Ms. Wheeler is a 80 Y/O Female with past medical history of hypertension, dyslipidemia, moderate chronic obstructive pulmonary disease, on oxygen at nighttime, and nebulizer as needed, history of tobacco use, coronary artery disease with CABG in 2017. I reviewed her renal function panel. Her baseline creatinine ranged from 0.9 to 1.1 mg/dL. Pt came to ER from home by ambulance today ( 05/26/21) with complain of progressively worsening shortness of breath over the past several days. Pt report mostly dry cough with occasional clear- white sputum production. Admits to mild lower extremity edema. Denies fever, chills, chest pain, or orthopnea. EMS reports her 02 sat 85% with 2L/min by [place] oxygen and has audible wheezes. Pt states she has become so weak that she cannot walk across a room without stopping or assistance. Upon arrival to ER patient was given Solu-Medrol and also Lasix, she also had chest x-ray done which showed diffuse interstitial edema probably secondary to cardiac failure and chronic obstructive pulmonary disease. . Onset of Symptoms: Reports: Gradual Duration of Symptoms: Reports: Getting Worse Worsens with: Reports: Movement Associated Symptoms: Reports: cough w sputum - Related Data Allergies/Adverse Reactions: Allergies Allergy/AdvReac Type Severity Reaction Status Date / Time environmental allergies Allergy Mild Sneezing Uncoded 05/26/21 11:14 Home Medications: Home Meds Bioflav,Lemon/Vit Bcomp,C [Lipo-Flavonoid Plus Caplet] 1 tab PO DAILY PRN 03/25/14 [History] Albuterol [Proventil Neb Soln] 2.5 mg NEB Q6HR PRN 12/11/16 [History] Multivitamin [Multiple Vitamins] 1 tab PO 202912/11/16 [History] Fluticasone/Vilanterol [Breo Ellipta 100-25 MCG Inhalation Kit] 1 puff INH DAILY 12/16/16 [History] Aspirin [Ecotrin EC] 81 mg PO DAILY 12/27/16 [History] Metoprolol Succinate 50 mg PO 202901/14/17 [History] Albuterol [Ventolin HFA] 2 puff INH Q6H PRN 09/26/17 [History] Losartan Potassium [Cozaar] 100 mg PO 202903/02/19 [History] atorvaSTATin [Lipitor] 20 mg PO 202903/02/19 [History] Furosemide [Lasix] 20 mg PO Q48H 06/23/20 [History] Meclizine [Antivert] 25 mg PO TID PRN 06/23/20 [History] Metoprolol Succinate [Toprol XL] 25 mg PO DAILY 06/23/20 [History] Albuterol/Ipratropium [DuoNeb 3.0-0.5 MG/3 ML] 3 ml INH Q6HR PRN 05/26/21 [History] Bisacodyl [Laxative Suppository] 1 supp RECTAL BID PRN 05/26/21 [History] Calcium Carbonate [Calcium] 1,200 mg PO 202905/26/21 [History] hydroCHLOROthiazide [Hydrochlorothiazide] 12.5 mg PO 202905/26/21 [History] Past Medical History HEENT History: Reports: Impaired Vision, Other (See Below) Other HEENT History: wears glasses Cardiovascular History: Reports: Bypass, CAD, High Cholesterol, Hypertension, CO , Stents Other Cardiovascular History: Coronary artery bypass grafting x2. left internal mammary artery to the left anterior descending artery. Sphenous vein graft to the first obtuse marginal branch. Hx of edema Respiratory History: Reports: Bronchitis, Recurrent, COPD Gastrointestinal History: Reports: None Other Gastrointestinal History: HX OF DIVERTICULITIS Genitourinary History: Reports: Renal Disease, Other (See Below) Other Genitourinary History: Chronic kidney disease-mineral and bone disorder. Chronic kidney disease state 3. Acute kidney injury. Microalbuminuria [employer] History: Reports: , Other (See Below) Other OB/BYN History: pap smear abnormality of cervix Musculoskeletal History: Reports: Arthritis, Other (See Below) Other Musculoskeletal History: DEXA scan Neurological History: Reports: Vertigo, Other (See Below) Other Neuro History: Benign positional vertigo Psychiatric History: Reports: None Endocrine/Metabolic History: Reports: Obesity/BMI 30+ Hematologic History: Reports: None Immunologic History: Reports: None Oncologic (Cancer) History: Reports: Other (See Below) Other Oncologic History: skin Dermatologic History: Reports: Other (See Below) Other Dermatologic History: skin cancer - Infectious Disease History Infectious Disease History: Reports: Chicken Pox, Measles - Past Surgical History Head Surgeries/Procedures: Reports: None HEENT Surgical History: Reports: Cataract Surgery, Tonsillectomy Other HEENT Surgeries/Procedures: LENS IMPLANT BILAT EYES Cardiovascular Surgical History: Reports: Coronary Artery Bypass, Coronary Artery Stent, Other (See Below) Other Cardiovascular Surgeries/Procedures: CABG x 2 on December 06, 2016. Respiratory Surgical History: Reports: None GI Surgical History: Reports: Appendectomy, Colonoscopy, EGD Other GI Surgeries/Procedures: S/P TUBULAR ADENOMA Female Surgical History: Reports: Hysterectomy, Other (See Below) Other Female Surgeries/Procedures: hx of post menopausal problems, removed a growth Endocrine Surgical History: Reports: None Neurological Surgical History: Reports: None Musculoskeletal Surgical History: Reports: None Oncologic Surgical History: Reports: None Dermatological Surgical History: Reports: Skin Biopsy Social & Family History - Family History Family Medical History: No Pertinent Family History - Tobacco Use Tobacco Use Status *Q: Current Every Day Tobacco User Years of Tobacco use: 60 Packs/Tins Daily: 0.5 - Caffeine Use Caffeine Use: Reports: Soda Caffeine Use Comment: COFFEE & DIET COKE OCCASSIONALLY - Recreational Drug Use Recreational Drug Use: No - Living Situation & Occupation Living situation: Reports: , Alone Occupation: Retired H&P Review of Systems - Review of Systems: Review Of Systems: See Below General: Reports: Weakness, Fatigue. Denies: Fever, Chills HEENT: Reports: Hearing Changes. Denies: Sinus Congestion, Sore Throat, Visual Changes Pulmonary: Reports: Shortness of Breath, Wheezing, Cough, Sputum Cardiovascular: Reports: Dyspnea on Exertion, Edema. Denies: Chest Pain, Lightheadedness Gastrointestinal: Denies: Abdominal Pain, Diarrhea, Difficulty Swallowing, Nausea Genitourinary: Denies: Dysuria, Frequency, Burning, Urgency, Flank Pain Musculoskeletal: Reports: Joint Swelling. Denies: Neck Pain, Leg Pain, Joint Pain Skin: Denies: Cyanosis, Jaundice, Bruising, Pruritis, Rash, Erythema Psychiatric: Denies: Confusion, Anxiety Neurological: Reports: Weakness. Denies: Confusion, Numbness, Seizure, Tremors Exam - Exam Exam: See Below - Vital Signs Vital Signs: Last Vital Signs Temp 37.1 C 01/01/22 07:10 Pulse 69 05/26/21 09:12 Resp 28 H 05/26/21 07:10 BP 202/64 H 05/26/21 07:10 Pulse Ox 96 05/26/21 07:10 Weight: 75.07 kg - Exam Quality Assessment: Supplemental Oxygen, DVT Prophylaxis. No: Urinary Catheter General: Alert, Oriented, Cooperative, Mild Distress HEENT: Conjunctiva Clear, Mucosa Moist & Lennox, Pupils Equal Neck: Supple. No: Carotid Bruit, JVD, Thyromegaly Lungs: Clear to Auscultation, Normal Respiratory Effort, Crackles, Wheezing Cardiovascular: Regular Rate, Regular Rhythm, Systolic Murmur GI/Abdominal Exam: Normal Bowel Sounds, Non-Tender, No Distention. No: Rebound, Tender (Female) Exam: Deferred Rectal (Female) Exam: Deferred Back Exam: Normal Inspection Extremities: Normal Inspection, Pedal Edema Skin: Warm, Dry, Intact Neurological: Cranial Nerves Intact Neuro Extensive - Mental Status: Alert, Oriented x3, Normal Mood/Affect, Normal Cognition, Memory Intact Neuro Extensive - Motor, Sensory, Reflexes: CN II-XII Intact Psychiatric: Alert, Normal Affect, Normal Mood - Patient Data Lab Results Last 24 hrs: Laboratory Results - last 24 hr 05/26/21 05/26/21 05/26/21 Range/Units 06:54 07:18 07:18 WBC 9.8 (5.0-10.0) 10^3/uL RBC 4.21 (4.2-5.4) 10^6/uL Hgb 12.6 D (12.0-16.0) g/dL Hct 39.3 (37.0-47.0) % MCV 93.3 D (80-100) fL MCH 29.9 (27.0-34.0) pg MCHC 32.1 L (33.0-35.0) g/dL Plt Count 174 (150-450) 10^3/uL Neut % (Auto) 78.2 H (42.2-75.2) % Lymph % (Auto) 9.5 L (20.5-50.1) % [place] % (Auto) 9.6 H (2-8) % Eos % (Auto) 2.6 (1.0-3.0) % Baso % (Auto) 0.1 (0.0-1.0) % Sodium 143 (136-145) mmol/L Potassium 4.8 D (3.5-5.1) mmol/L Chloride 104 (98-107) mmol/L Carbon Dioxide 32 (21-32) mmol/L Anion Gap 11.8 (7-13) mEq/L BUN 14 (7-18) mg/dL Creatinine 0.87 (0.55-1.02) mg/dL Est Cr Clr Drug Dosing 41.47 mL/min Estimated GFR (MDRD) > 60 BUN/Creatinine Ratio 16.1 (No establ ref range) Glucose 116 H (70-99) mg/dL Calcium 8.8 (8.5-10.1) mg/dL Total Bilirubin 0.5 (0.2-1.0) mg/dL AST 20 (15-37) U/L ALT 21 (14-59) U/L Alkaline Phosphatase 110 (46-116) U/L Troponin I High Sens 21 (<=51) pg/mL B-Natriuretic Peptide (0-100) pg/ml Total Protein 6.8 (6.4-8.2) g/dL Albumin 3.4 (3.4-5.0) g/dL Globulin 3.4 Albumin/Globulin Ratio 1.0 Influenza Type A RNA Negative (NEGATIVE) RSV RNA (INAAT) Negative (NEGATIVE) Influenza Type B RNA Negative (NEGATIVE) SARS-CoV-2 RNA (BERTO) Negative (NEGATIVE) 05/26/21 Range/Units 07:18 WBC (5.0-10.0) 10^3/uL RBC (4.2-5.4) 10^6/uL Hgb (12.0-16.0) g/dL Hct (37.0-47.0) % MCV (80-100) fL MCH (27.0-34.0) pg MCHC (33.0-35.0) g/dL Plt Count (150-450) 10^3/uL Neut % (Auto) (42.2-75.2) % Lymph % (Auto) (20.5-50.1) % [place] % (Auto) (2-8) % Eos % (Auto) (1.0-3.0) % Baso % (Auto) (0.0-1.0) % Sodium (136-145) mmol/L Potassium (3.5-5.1) mmol/L Chloride (98-107) mmol/L Carbon Dioxide (21-32) mmol/L Anion Gap (7-13) mEq/L BUN (7-18) mg/dL Creatinine (0.55-1.02) mg/dL Est Cr Clr Drug Dosing mL/min Estimated GFR (MDRD) BUN/Creatinine Ratio (No establ ref range) Glucose (70-99) mg/dL Calcium (8.5-10.1) mg/dL Total Bilirubin (0.2-1.0) mg/dL AST (15-37) U/L ALT (14-59) U/L Alkaline Phosphatase (46-116) U/L Troponin I High Sens (<=51) pg/mL B-Natriuretic Peptide 504 H (0-100) pg/ml Total Protein (6.4-8.2) g/dL Albumin (3.4-5.0) g/dL Globulin Albumin/Globulin Ratio Influenza Type A RNA (NEGATIVE) RSV RNA (INAAT) (NEGATIVE) Influenza Type B RNA (NEGATIVE) SARS-CoV-2 RNA (BERTO) (NEGATIVE) Result Diagrams: 05/26/21 07:18 05/26/21 07:18 - Problem List (1) Acute exacerbation of chronic obstructive pulmonary disease (COPD) SNOMED Code(s): 033262666 ICD Code: J44.1 - CHRONIC OBSTRUCTIVE PULMONARY DISEASE W (ACUTE) EXACERBATION Status: Acute Current Visit: No (2) Hypertension SNOMED Code(s): 63802835 ICD Code: I10 - ESSENTIAL (PRIMARY) HYPERTENSION Status: Acute Current Visit: No Onset Date: ~08/09/16 (3) Pulmonary edema SNOMED Code(s): 55138611 ICD Code: J81.1 - CHRONIC PULMONARY EDEMA Status: Acute Current Visit: No Qualifiers: Chronicity: acute Qualified Code(s): J81.0 - Acute pulmonary edema Problem List Initiated/Reviewed/Updated: Yes Orders Last 24hrs: Active Orders 24 hr Category Date Time Status Admission Diagnosis [ADT] Routine ADT 05/26/21 09:57 Ordered Patient Status [ADT] Routine ADT 05/26/21 09:57 Active CULTURE BLOOD [BC] Stat Lab 05/26/21 07:18 Received CULTURE BLOOD [BC] Stat Lab 05/26/21 08:22 Received Sodium Chloride 0.9% [Saline Flush] Med 05/26/21 07:04 Active 10 ml FLUSH ASDIRECTED PRN Blood Culture x2 Reflex Set [OM.PC] Stat Ot 05/26/21 07:03 Ordered Peripheral IV Insertion Adult [OM.PC] Stat Ot 05/26/21 07:04 Ordered Medication Orders Sodium Chloride (Sodium Chloride 0.9% 10 Ml Syringe) 10 ml FLUSH ASDIRECTED PRN PRN Reason: Keep Vein Open Last Admin: 05/26/21 07:34 Dose: 10 ml Documented by: CAREY Assessment/Plan Comment:: Ms. wheeler, is a 80-year-old pleasant female getting admitted for COPD exacerbation as well as congestive heart failure, requiring now more oxygen therapy via nasal cannula. Impression and plan: 1. Acute exacerbation of COPD likely from pneumonia. The chest x-ray shows opacities with likely infiltrates. We will start her on Zosyn 3.375 mg every 6 hours. We will start her on Solu-Medrol 40 mg IV daily. We will also start her on Lasix 40 mg IV daily -We will also start her on DuoNeb and albuterol as needed. We will have strict I and O recording and BMP again in the morning. 2. Likely CHF exacerbation. Chest x-ray looks cephalization and will start her on Lasix 40 mg IV 2 times a day. She has received Lasix in ER and will give another dose today 40 mg IV and from tomorrow she will be on lasix 40 mg IV 2 times a day. 3. Hypertension her blood pressure acceptable and we will continue her with metoprolol at 75 mg daily and Losartan at 100 mg daily 4. Dyslipidemia: We will start her on statin. 5. Edema of extremities: Patient was taking Lasix at home which is very small dose 20 mg every other day, will start her on Lasix 40 mg IV 2 times a day, will send her home with Lasix 40 mg p.o. daily, probably she will be able to go home on Friday. GI prophylaxis: We will start her on Protonix 40 mg p.o. daily with breakfast. DVT prophylaxis. We will start her on Lovenox 40 mg subq daily. CODE STATUS: Discussed with patient about her CODE STATUS and she wants to be D NR/DNI. This dictation is done via [employer] dictation system.
[2021-05-26] MEDS ORDERED: Acetaminophen 325 MG Tab PO PRN (11:55)
[2021-05-26] MEDS ORDERED: Docusate Sodium 100 MG Cap PO PRN (11:55)
[2021-05-26] MEDS ORDERED: Bisacodyl 10 MG Supp RECTAL PRN (12:02)
[2021-05-26] MEDS ORDERED: Meclizine 12.5 MG Tab PO PRN (12:02)
[2021-05-26] MEDS ORDERED: Albuterol 0.083% 2.5 MG/3 ML Neb Soln NEB PRN (12:02)
[2021-05-26] MEDS ORDERED: Albuterol 6.7 GM Inhaler INH PRN (12:02)
[2021-05-26] MEDS ORDERED: Aspirin 325 MG Tab.EC PO SCH (12:30)
[2021-05-26] MEDS ORDERED: Furosemide 40 MG/4 ML VIAL IVPUSH ONE (13:00)
[2021-05-26] MEDS: Piperacillin/Tazobactam 3.375 GM in Sodium Chloride 0.9% 100 ML IV SCH ×2 (13:20→17:31)
[2021-05-26] MEDS: MOMETASONE INH SCH ×2 (13:21→20:13)
[2021-05-26] MEDS: FORMOTEROL INH SCH ×2 (13:21→20:13)
[2021-05-26] MEDS: Metoprolol Succinate 25 MG Tab.ER PO SCH (13:21)
[2021-05-26] MEDS: Aspirin 81 MG Tab.EC PO SCH (14:25)
[2021-05-26] MEDS: Losartan 50 MG Tab PO SCH (20:10)
[2021-05-26] MEDS: Metoprolol Succinate 50 MG Tab.ER PO SCH (20:11)
[2021-05-26] MEDS: Calcium Carbonate 500 MG Tab.Chew PO SCH (20:12)
[2021-05-26] MEDS: Multivitamin Tab PO SCH (20:12)
[2021-05-26] MEDS: Hydrochlorothiazide 25 MG Tab PO SCH (20:12)
[2021-05-26] MEDS: atorvaSTATin 20 MG Tab PO SCH (20:12)
[2021-05-26] MEDS: Menthol/Methyl Salicylate 85 GM Tube TOP PRN (20:30)
[2021-05-27] MEDS: Piperacillin/Tazobactam 3.375 GM in Sodium Chloride 0.9% 100 ML IV SCH ×4 (00:07→19:14)
[2021-05-27 07:58] LABS: ANION GAP 13.7 mEq/L (7-13)
[2021-05-27] MEDS ORDERED: Metoprolol Succinate 25 MG Tab.ER PO SCH (09:00)
[2021-05-27] MEDS ORDERED: Aspirin 325 MG Tab.EC PO SCH (09:00)
[2021-05-27] MEDS: methylPREDNISolone Sodium Succinate 40 MG/1 ML SDV IVPUSH SCH (09:23)
[2021-05-27] MEDS: Albuterol/Ipratropium 3.0-0.5 MG/3 ML Neb Soln INH PRN ×2 (09:24→16:20)
[2021-05-27] MEDS: Enoxaparin 40 MG/0.4 ML Syringe SUBCUT SCH (09:25)
[2021-05-27] MEDS: Sodium Chloride 0.9% 10 ML Syringe FLUSH PRN ×2 (09:25→14:48)
[2021-05-27] MEDS: Aspirin 81 MG Tab.EC PO SCH (09:26)
[2021-05-27] MEDS: Metoprolol Succinate 25 MG Tab.ER PO SCH (09:26)
[2021-05-27] MEDS: Furosemide 40 MG/4 ML VIAL IVPUSH SCH ×2 (09:28→14:48)
[2021-05-27] MEDS: FORMOTEROL INH SCH ×2 (09:34→21:18)
[2021-05-27] MEDS: MOMETASONE INH SCH ×2 (09:34→21:18)
--- NOTE | 2021-05-27 10:33 | PCM.PN ---
- General Info Date of Service: 05/27/21 Admission Dx/Problem (Free Text): Admission Diagnosis/Problem Admission Diagnosis/Problem COPD, Moderate chronic obstructive pulmonary disease Subjective Update: Patient was seen on rounds today, she is still having some chest tightness and shortness of breath, no nausea or vomiting, no fever or chills, appetite is acceptable. Functional Status: Reports: Pain Controlled, Tolerating Diet, Ambulating, Urinating - Review of Systems General: Reports: Weakness, Appetite (acceptable). Denies: Fever, Chills HEENT: Denies: Sinus Congestion, Sore Throat, Visual Changes Pulmonary: Reports: Shortness of Breath. Denies: Cough, Wheezing Cardiovascular: Reports: Dyspnea on Exertion, Edema. Denies: Chest Pain, Lightheadedness Gastrointestinal: Denies: Abdominal Pain, Diarrhea, Nausea, Vomiting Genitourinary: Denies: Dysuria, Frequency, Burning, Flank Pain Musculoskeletal: Denies: Neck Pain, Leg Pain, Joint Swelling Skin: Denies: Jaundice, Dryness, Bruising, Pruritis, Rash Neurological: Reports: Weakness. Denies: Confusion, Numbness, Tremors Psychiatric: Denies: Anxiety, Agitation - Patient Data Vitals - Most Recent: Last Vital Signs Temp 36.7 C 05/27/21 08:33 Pulse 63 05/27/21 09:26 Resp 20 05/27/21 08:33 BP 155/60 H 05/27/21 09:26 Pulse Ox 95 05/27/21 08:33 Weight - Most Recent: 72.212 kg I&O - Last 24 Hours: Intake & Output 05/26/21 05/27/21 05/27/21 22:59 06:59 14:59 Intake Total 550 Output Total 700 Balance -150 Lab Results Last 24 Hours: Laboratory Results - last 24 hr 05/27/21 05/27/21 Range/Units 06:35 06:35 WBC 16.0 H (5.0-10.0) 10^3/uL RBC 4.11 L (4.2-5.4) 10^6/uL Hgb 12.1 (12.0-16.0) g/dL Hct 37.3 (37.0-47.0) % MCV 90.8 (80-100) fL MCH 29.4 (27.0-34.0) pg MCHC 32.4 L (33.0-35.0) g/dL Plt Count 217 (150-450) 10^3/uL Neut % (Auto) 85.0 H (42.2-75.2) % Lymph % (Auto) 6.7 L (20.5-50.1) % [place] % (Auto) 8.2 H (2-8) % Eos % (Auto) 0.0 L (1.0-3.0) % Baso % (Auto) 0.1 (0.0-1.0) % Sodium 141 (136-145) mmol/L Potassium 3.7 (3.5-5.1) mmol/L Chloride 99 (98-107) mmol/L Carbon Dioxide 32 (21-32) mmol/L Anion Gap 13.7 H (7-13) mEq/L BUN 24 H (7-18) mg/dL Creatinine 1.25 H (0.55-1.02) mg/dL Est Cr Clr Drug Dosing 28.86 mL/min Estimated GFR (MDRD) 41 Glucose 122 H (70-99) mg/dL Calcium 9.0 (8.5-10.1) mg/dL Jean Claude Results Last 24 Hours: Microbiology 05/26/21 08:22 Aerobic Blood Culture - Preliminary Blood - Arm, Right NO GROWTH AFTER 1 DAY Anaerobic Blood Culture - Preliminary NO GROWTH AFTER 1 DAY 05/26/21 07:18 Aerobic Blood Culture - Preliminary Blood - Venous - Iv Start NO GROWTH AFTER 1 DAY Anaerobic Blood Culture - Preliminary NO GROWTH AFTER 1 DAY Med Orders - Current: Current Medications Acetaminophen (Acetaminophen 325 Mg Tab) 650 mg PO Q4H PRN PRN Reason: Pain (mild 1-3 )/fever Last Admin: 05/26/21 16:20 Dose: 650 mg Documented by: Albuterol (Albuterol 0.083% 2.5 Mg/3 Ml Neb Soln) 2.5 mg NEB Q6H PRN PRN Reason: Shortness of Breath Albuterol (Albuterol 6.7 Gm Inhaler) 0 gm INH Q6H PRN PRN Reason: Wheezing Albuterol/Ipratropium (Albuterol/Ipratropium 3.0-0.5 Mg/3 Ml Neb Soln) 3 ml INH Q6H PRN PRN Reason: Wheezing Last Admin: 05/27/21 09:24 Dose: 3 ml Documented by: Aspirin (Aspirin 81 Mg Tab.Ec) 81 mg PO DAILY [facility] Last Admin: 05/27/21 09:26 Dose: 81 mg Documented by: Atorvastatin Calcium (Atorvastatin 20 Mg Tab) 20 mg PO 2029 [facility] Last Admin: 05/26/21 20:12 Dose: 20 mg Documented by: Bisacodyl (Bisacodyl 10 Mg Supp) 10 mg RECTAL BID PRN PRN Reason: Constipation Calcium Carbonate/Glycine (Calcium Carbonate 500 Mg Tab.Chew) 1,000 mg PO 2029 [facility] Last Admin: 05/26/21 20:12 Dose: 1,000 mg Documented by: Docusate Sodium (Docusate Sodium 100 Mg Cap) 100 mg PO DAILY PRN PRN Reason: Constipation Enoxaparin Sodium (Enoxaparin 40 Mg/0.4 Ml Syringe) 40 mg SUBCUT DAILY [facility] Last Admin: 05/27/21 09:25 Dose: 40 mg Documented by: Furosemide (Furosemide 40 Mg/4 Ml Vial) 40 mg IVPUSH BIDDIURETIC [facility] Last Admin: 05/27/21 09:28 Dose: 40 mg Documented by: Hydrochlorothiazide (Hydrochlorothiazide 25 Mg Tab) 12.5 mg PO 2029 [facility] Last Admin: 05/26/21 20:12 Dose: 12.5 mg Documented by: Piperacillin Sod/Tazobactam (Sod 3.375 gm/ Sodium Chloride) 100 mls @ 200 mls/hr IV Q6H [facility] Last Admin: 05/27/21 05:22 Dose: 200 mls/hr Documented by: Losartan Potassium (Losartan 50 Mg Tab) 100 mg PO 2029 [facility] Last Admin: 05/26/21 20:10 Dose: 100 mg Documented by: Meclizine HCl (Meclizine 12.5 Mg Tab) 25 mg PO TID PRN PRN Reason: VERTIGO Methyl Salicylate (Menthol/Methyl Salicylate 85 Gm Tube) 1 gm TOP QID PRN PRN Reason: Pain (mild 1-3) Last Admin: 05/26/21 20:30 Dose: 1 applic Documented by: Methylprednisolone Sodium Succinate (Methylprednisolone Sodium Succinate 40 Mg/1 Ml Sdv) 40 mg IVPUSH DAILY [facility] Last Admin: 05/27/21 09:23 Dose: 40 mg Documented by: Metoprolol Succinate (Metoprolol Succinate 50 Mg Tab.Er) 50 mg PO 2029 [facility] Last Admin: 05/26/21 20:11 Dose: 50 mg Documented by: Metoprolol Succinate (Metoprolol Succinate 25 Mg Tab.Er) 25 mg PO DAILY [facility] Last Admin: 05/27/21 09:26 Dose: 25 mg Documented by: Mometasone Furoate/Formoterol Fumar (Formoterol/Mometasone 100-5 Mcg 13 Gm Inhaler) 2 puff INH BID [facility] Last Admin: 05/27/21 09:34 Dose: 2 puff Documented by: Multivitamins/Minerals/Vitamin C (Multivitamin Tab) 1 tab PO 2029 [facility] Last Admin: 05/26/21 20:12 Dose: 1 tab Documented by: Sodium Chloride (Sodium Chloride 0.9% 10 Ml Syringe) 10 ml FLUSH ASDIRECTED PRN PRN Reason: Keep Vein Open Last Admin: 05/27/21 09:25 Dose: 10 ml Documented by: Discontinued Medications Albuterol/Ipratropium (Albuterol/Ipratropium 3.0-0.5 Mg/3 Ml Neb Soln) 3 ml NEB ONETIME ONE Stop: 05/26/21 07:05 Last Admin: 05/26/21 07:33 Dose: 3 ml Documented by: Albuterol/Ipratropium (Albuterol/Ipratropium 3.0-0.5 Mg/3 Ml Neb Soln) 3 ml NEB ONETIME ONE Stop: 05/26/21 08:25 Last Admin: 05/26/21 09:09 Dose: 3 ml Documented by: Aspirin (Aspirin 325 Mg Tab.Ec) 81 mg PO DAILY [facility] Aspirin (Aspirin 325 Mg Tab.Ec) 81 mg PO DAILY [facility] Last Admin: 05/26/21 15:13 Dose: Not Given Documented by: Furosemide (Furosemide 100 Mg/10 Ml Sdv) 80 mg IVPUSH ONETIME ONE Stop: 05/26/21 09:23 Last Admin: 05/26/21 09:45 Dose: 80 mg Documented by: Furosemide (Furosemide 40 Mg/4 Ml Vial) 40 mg IVPUSH ONETIME ONE Stop: 05/26/21 13:01 Last Admin: 05/26/21 13:20 Dose: 40 mg Documented by: Methylprednisolone Sodium Succinate (Methylprednisolone Sodium Succinate 125 M g/2 Ml Sdv) 125 mg IVPUSH ONETIME ONE Stop: 05/26/21 07:05 Last Admin: 05/26/21 07:35 Dose: 125 mg Documented by: Metoprolol Succinate (Metoprolol Succinate 25 Mg Tab.Er) 25 mg PO DAILY [facility] Non-Formulary Medication (Bioflav,Lemon/Vit Bcomp,C [Lipo-Flavonoid Plus Caplet]) 1 tab PO DAILY PRN PRN Reason: VERTIGO - Exam Quality Assessment: Supplemental Oxygen, DVT Prophylaxis. No: Central Line/PICC, Urine Catheter General: Alert, Oriented, Cooperative, No Acute Distress HEENT: Pupils Equal, Pupils Reactive, EOMI, Mucous Membr. Moist/[place] Neck: No JVD, No Thyromegaly Lungs: Clear to Auscultation, Normal Respiratory Effort Cardiovascular: Regular Rate, Regular Rhythm, Murmurs GI/Abdominal Exam: Normal Bowel Sounds, Soft, Non-Tender, No Distention (Female) Exam: Deferred Back Exam: Normal Inspection Extremities: Normal Inspection, Pedal Edema Skin: Warm, Dry, Intact Neurological: No New Focal Deficit Psy/Mental Status: Alert, Normal Affect, Normal Mood - Patient Data Lab Results Last 24 hrs: Laboratory Results - last 24 hr 05/27/21 05/27/21 Range/Units 06:35 06:35 WBC 16.0 H (5.0-10.0) 10^3/uL RBC 4.11 L (4.2-5.4) 10^6/uL Hgb 12.1 (12.0-16.0) g/dL Hct 37.3 (37.0-47.0) % MCV 90.8 (80-100) fL MCH 29.4 (27.0-34.0) pg MCHC 32.4 L (33.0-35.0) g/dL Plt Count 217 (150-450) 10^3/uL Neut % (Auto) 85.0 H (42.2-75.2) % Lymph % (Auto) 6.7 L (20.5-50.1) % [place] % (Auto) 8.2 H (2-8) % Eos % (Auto) 0.0 L (1.0-3.0) % Baso % (Auto) 0.1 (0.0-1.0) % Sodium 141 (136-145) mmol/L Potassium 3.7 (3.5-5.1) mmol/L Chloride 99 (98-107) mmol/L Carbon Dioxide 32 (21-32) mmol/L Anion Gap 13.7 H (7-13) mEq/L BUN 24 H (7-18) mg/dL Creatinine 1.25 H (0.55-1.02) mg/dL Est Cr Clr Drug Dosing 28.86 mL/min Estimated GFR (MDRD) 41 Glucose 122 H (70-99) mg/dL Calcium 9.0 (8.5-10.1) mg/dL Result Diagrams: 05/27/21 06:35 05/27/21 06:35 Jean Claude Results Last 24 hrs: Microbiology 05/26/21 08:22 Aerobic Blood Culture - Preliminary Blood - Arm, Right NO GROWTH AFTER 1 DAY Anaerobic Blood Culture - Preliminary NO GROWTH AFTER 1 DAY 05/26/21 07:18 Aerobic Blood Culture - Preliminary Blood - Venous - Iv Start NO GROWTH AFTER 1 DAY Anaerobic Blood Culture - Preliminary NO GROWTH AFTER 1 DAY Sepsis Event Note - Evaluation Sepsis Screening Result: No Definite Risk - Focused Exam Vital Signs: Vital Signs Temp Pulse Pulse Resp BP BP BP 05/27/21 09:26 63 155/60 H 05/27/21 08:33 36.7 C 63 20 155/60 H 05/27/21 04:00 36.6 C 64 20 129/37 L 05/27/21 00:00 37.2 C 67 20 153/51 H Pulse Ox 05/27/21 09:26 05/27/21 08:33 95 05/27/21 04:00 93 L 05/27/21 00:00 92 L - Problem List & Annotations (1) Acute exacerbation of chronic obstructive pulmonary disease (COPD) SNOMED Code(s): 323000143 Code(s): J44.1 - CHRONIC OBSTRUCTIVE PULMONARY DISEASE W (ACUTE) EXACERBATION Status: Acute Current Visit: No (2) Hypertension SNOMED Code(s): 11595997 Code(s): I10 - ESSENTIAL (PRIMARY) HYPERTENSION Status: Acute Current Visit: No Onset Date: ~08/09/16 (3) Pulmonary edema SNOMED Code(s): 37136378 Code(s): J81.1 - CHRONIC PULMONARY EDEMA Status: Acute Current Visit: No Qualifiers: Chronicity: acute Qualified Code(s): J81.0 - Acute pulmonary edema - Problem List Review Problem List Initiated/Reviewed/Updated: Yes - My Orders Last 24 Hours: My Active Orders 05/26/21 11:55 Patient Status [ADT] Routine Up With Assistance [RC] ASDIRECTED Vital Signs [RC] Q4H Acetaminophen [TylenoL] 650 mg PO Q4H PRN Docusate Sodium [Colace] 100 mg PO DAILY PRN DVT/VTE Prophylaxis Reflex [OM.PC] Routine Resuscitation Status Routine 05/26/21 11:56 Oxygen Therapy [RC] CONTINUOUS Pulse Oximetry [RC] PRN 05/26/21 11:57 Antiembolic Devices [RC] .Routine VTE/DVT Education [RC] PER UNIT ROUTINE 05/26/21 Lunch 2 Gram Sodium Diet [DIET] Piperacillin/Tazobactam [Zosyn] 3.375 gm Sodium Chloride 0.9% [Normal Saline AdvBag] 100 ml IV Q6H 05/26/21 12:02 Albuterol [Proventil HFA] 0 gm INH Q6H PRN Albuterol [Proventil Neb Soln] 2.5 mg NEB Q6H PRN Albuterol/Ipratropium [DuoNeb 3.0-0.5 MG/3 ML] 3 ml INH Q6H PRN Meclizine [Antivert] 25 mg PO TID PRN bisacodyL [Dulcolax] 10 mg RECTAL BID PRN 05/26/21 12:04 RT Aerosol Therapy [RC] ASDIRECTED RT Post Treatment Assessment [RC] Click to Edit RT Pre-Treatment Assessment [RC] Click to Edit 05/26/21 12:30 Formoterol/Mometasone [Dulera 100-5 MCG] 2 puff INH BID Metoprolol Succinate [Toprol XL] 25 mg PO DAILY 05/26/21 13:45 Aspirin [Halfprin] 81 mg PO DAILY 05/26/21 20:01 Menthol/Methyl Salicylate [Icy Hot Cream] 1 gm TOP QID PRN 05/26/21 20:30 Calcium Carbonate [Tums] 1,000 mg PO 2030 Losartan [Cozaar] 100 mg PO 2029 Metoprolol Succinate [Toprol XL] 50 mg PO 2030 Multivitamins [Tab-A-Cassandra] 1 tab PO 2029 atorvaSTATin [Lipitor] 20 mg PO 2029 hydroCHLOROthiazide 12.5 mg PO 2030 05/27/21 08:00 Furosemide [Lasix] 40 mg IVPUSH BIDDIURETIC 05/27/21 09:00 Enoxaparin [Lovenox] 40 mg SUBCUT DAILY methylPREDNISolone Sod Succ [Solu-MEDROL] 40 mg IVPUSH DAILY - Plan Plan:: Ms. oden, is a 80-year-old pleasant female getting admitted for COPD exacerbation as well as congestive heart failure, requiring now more oxygen therapy via nasal cannula. Impression and plan: 1. Acute exacerbation of COPD likely from pneumonia. The chest x-ray shows opacities with likely infiltrates. -will continue her on Zosyn 3.375 mg every 6 hours. - will continue her on Solu-Medrol 40 mg IV daily. -will also continue her on Lasix 40 mg IV 2 times a day -We will also continue her on DuoNeb and albuterol as needed. We will have strict I and O recording and BMP again in the morning. 2. Likely CHF exacerbation. Chest x-ray looks cephalization and will continue her on Lasix 40 mg IV 2 times a day 3. Hypertension her blood pressure acceptable and we will continue her with metoprolol at 75 mg daily and Losartan at 100 mg daily 4. Dyslipidemia: We will start her on statin. 5. Edema of extremities: Patient was taking Lasix at home which is very small dose 20 mg every other day, will continue her on Lasix 40 mg IV BID , will send her home with Lasix 40 mg p.o. daily, probably she will be able to go home on Friday/Friday. GI prophylaxis: We will continue her on Protonix 40 mg p.o. daily with breakfast . DVT prophylaxis. We will start her on Lovenox 40 mg subq daily. CODE STATUS: Discussed with patient about her CODE STATUS and she wants to be DNR/DNI. This dictation is done via [employer] dictation system.
[2021-05-27] MEDS: Menthol/Methyl Salicylate 85 GM Tube TOP PRN (14:49)
[2021-05-27] MEDS: Metoprolol Succinate 50 MG Tab.ER PO SCH (21:13)
[2021-05-27] MEDS: Multivitamin Tab PO SCH (21:13)
[2021-05-27] MEDS: Hydrochlorothiazide 25 MG Tab PO SCH (21:13)
[2021-05-27] MEDS: atorvaSTATin 20 MG Tab PO SCH (21:13)
[2021-05-27] MEDS: Losartan 50 MG Tab PO SCH (21:14)
[2021-05-27] MEDS: Calcium Carbonate 500 MG Tab.Chew PO SCH (21:14)
[2021-05-28] MEDS: Piperacillin/Tazobactam 3.375 GM in Sodium Chloride 0.9% 100 ML IV SCH ×4 (00:13→17:58)
[2021-05-28 06:28] LABS: ANION GAP 13.5 mEq/L (7-13)
[2021-05-28] MEDS: Albuterol/Ipratropium 3.0-0.5 MG/3 ML Neb Soln INH PRN (07:56)
[2021-05-28] MEDS: methylPREDNISolone Sodium Succinate 40 MG/1 ML SDV IVPUSH SCH (12:14)
[2021-05-28] MEDS: FORMOTEROL INH SCH ×2 (12:16→20:31)
[2021-05-28] MEDS: Enoxaparin 40 MG/0.4 ML Syringe SUBCUT SCH (12:16)
[2021-05-28] MEDS: Aspirin 81 MG Tab.EC PO SCH (12:16)
[2021-05-28] MEDS: MOMETASONE INH SCH ×2 (12:16→20:31)
[2021-05-28] MEDS: Metoprolol Succinate 25 MG Tab.ER PO SCH (12:17)
[2021-05-28] MEDS: Furosemide 40 MG/4 ML VIAL IVPUSH SCH ×2 (15:02→15:04)
[2021-05-28] MEDS: Furosemide 40 MG Tab PO SCH (16:40)
[2021-05-28] MEDS: atorvaSTATin 20 MG Tab PO SCH (20:26)
[2021-05-28] MEDS: Metoprolol Succinate 50 MG Tab.ER PO SCH (20:26)
[2021-05-28] MEDS: Losartan 50 MG Tab PO SCH (20:26)
[2021-05-28] MEDS ORDERED: Calcium Carbonate 500 MG Tab.Chew PO PRN (20:32)
--- NOTE | 2021-05-28 23:06 | PCM.PN ---
- General Info Date of Service: 05/28/21 - Patient Data Vitals - Most Recent: Last Vital Signs Temp 97.7 F 05/28/21 16:00 Pulse 59 L 05/28/21 20:26 Resp 16 05/28/21 16:00 BP 151/48 H 05/28/21 20:26 Pulse Ox 96 05/28/21 16:00 Weight - Most Recent: 158 lb 9.6 oz I&O - Last 24 Hours: Intake & Output 05/28/21 05/28/21 05/29/21 14:59 22:59 06:59 Intake Total 690 480 Output Total 150 350 Balance 540 130 Lab Results Last 24 Hours: Laboratory Results - last 24 hr 05/28/21 Range/Units 05:25 Sodium 142 (136-145) mmol/L Potassium 3.5 (3.5-5.1) mmol/L Chloride 98 (98-107) mmol/L Carbon Dioxide 34 H (21-32) mmol/L Anion Gap 13.5 H (7-13) mEq/L BUN 29 H (7-18) mg/dL Creatinine 1.19 H (0.55-1.02) mg/dL Est Cr Clr Drug Dosing 30.32 mL/min Estimated GFR (MDRD) 44 Glucose 91 (70-99) mg/dL Calcium 9.0 (8.5-10.1) mg/dL Jean Claude Results Last 24 Hours: Microbiology 05/26/21 08:22 Aerobic Blood Culture - Preliminary Blood - Arm, Right NO GROWTH AFTER 2 DAYS Anaerobic Blood Culture - Preliminary NO GROWTH AFTER 2 DAYS 05/26/21 07:18 Aerobic Blood Culture - Preliminary Blood - Venous - Iv Start NO GROWTH AFTER 2 DAYS Anaerobic Blood Culture - Preliminary NO GROWTH AFTER 2 DAYS Med Orders - Current: Current Medications Acetaminophen (Acetaminophen 325 Mg Tab) 650 mg PO Q4H PRN PRN Reason: Pain (mild 1-3 )/fever Last Admin: 05/26/21 16:20 Dose: 650 mg Documented by: Albuterol (Albuterol 0.083% 2.5 Mg/3 Ml Neb Soln) 2.5 mg NEB Q6H PRN PRN Reason: Shortness of Breath Albuterol (Albuterol 6.7 Gm Inhaler) 0 gm INH Q6H PRN PRN Reason: Wheezing Albuterol/Ipratropium (Albuterol/Ipratropium 3.0-0.5 Mg/3 Ml Neb Soln) 3 ml INH Q6H PRN PRN Reason: Wheezing Last Admin: 05/28/21 07:56 Dose: 3 ml Documented by: Aspirin (Aspirin 81 Mg Tab.Ec) 81 mg PO DAILY [facility] Last Admin: 05/28/21 12:16 Dose: 81 mg Documented by: Atorvastatin Calcium (Atorvastatin 20 Mg Tab) 20 mg PO 2029 [facility] Last Admin: 05/28/21 20:26 Dose: 20 mg Documented by: Bisacodyl (Bisacodyl 10 Mg Supp) 10 mg RECTAL BID PRN PRN Reason: Constipation Last Admin: 05/27/21 11:15 Dose: 10 mg Documented by: Calcium Carbonate/Glycine (Calcium Carbonate 500 Mg Tab.Chew) 500 mg PO Q4H PRN PRN Reason: Indigestion Docusate Sodium (Docusate Sodium 100 Mg Cap) 100 mg PO DAILY PRN PRN Reason: Constipation Enoxaparin Sodium (Enoxaparin 40 Mg/0.4 Ml Syringe) 40 mg SUBCUT DAILY [facility] Last Admin: 05/28/21 12:16 Dose: 40 mg Documented by: Furosemide (Furosemide 40 Mg Tab) 40 mg PO DAILY [facility] Last Admin: 05/28/21 16:40 Dose: 40 mg Documented by: Piperacillin Sod/Tazobactam (Sod 3.375 gm/ Sodium Chloride) 100 mls @ 200 mls/hr IV Q6H [facility] Last Infusion: 05/28/21 17:59 Dose: 200 mls/hr Documented by: Losartan Potassium (Losartan 50 Mg Tab) 100 mg PO 2029 [facility] Last Admin: 05/28/21 20:26 Dose: 100 mg Documented by: Meclizine HCl (Meclizine 12.5 Mg Tab) 25 mg PO TID PRN PRN Reason: VERTIGO Methyl Salicylate (Menthol/Methyl Salicylate 85 Gm Tube) 1 gm TOP QID PRN PRN Reason: Pain (mild 1-3) Last Admin: 05/27/21 14:49 Dose: 1 applic Documented by: Metoprolol Succinate (Metoprolol Succinate 50 Mg Tab.Er) 50 mg PO 2029 [facility] Last Admin: 05/28/21 20:26 Dose: 50 mg Documented by: Metoprolol Succinate (Metoprolol Succinate 25 Mg Tab.Er) 25 mg PO DAILY [facility] Last Admin: 05/28/21 12:17 Dose: 25 mg Documented by: Mometasone Furoate/Formoterol Fumar (Formoterol/Mometasone 100-5 Mcg 13 Gm Inhaler) 2 puff INH BID [facility] Last Admin: 05/28/21 20:31 Dose: 2 puff Documented by: Prednisone (Prednisone 20 Mg Tab) 40 mg PO WITHBREAKFAST [facility] Sodium Chloride (Sodium Chloride 0.9% 10 Ml Syringe) 10 ml FLUSH ASDIRECTED PRN PRN Reason: Keep Vein Open Last Admin: 05/27/21 14:48 Dose: 10 ml Documented by: Discontinued Medications Albuterol/Ipratropium (Albuterol/Ipratropium 3.0-0.5 Mg/3 Ml Neb Soln) 3 ml NEB ONETIME ONE Stop: 05/26/21 07:05 Last Admin: 05/26/21 07:33 Dose: 3 ml Documented by: Albuterol/Ipratropium (Albuterol/Ipratropium 3.0-0.5 Mg/3 Ml Neb Soln) 3 ml NEB ONETIME ONE Stop: 05/26/21 08:25 Last Admin: 05/26/21 09:09 Dose: 3 ml Documented by: Aspirin (Aspirin 325 Mg Tab.Ec) 81 mg PO DAILY [facility] Aspirin (Aspirin 325 Mg Tab.Ec) 81 mg PO DAILY [facility] Last Admin: 05/26/21 15:13 Dose: Not Given Documented by: Calcium Carbonate/Glycine (Calcium Carbonate 500 Mg Tab.Chew) 1,000 mg PO 2029 [facility] Last Admin: 05/27/21 21:14 Dose: 1,000 mg Documented by: Furosemide (Furosemide 100 Mg/10 Ml Sdv) 80 mg IVPUSH ONETIME ONE Stop: 05/26/21 09:23 Last Admin: 05/26/21 09:45 Dose: 80 mg Documented by: Furosemide (Furosemide 40 Mg/4 Ml Vial) 40 mg IVPUSH ONETIME ONE Stop: 05/26/21 13:01 Last Admin: 05/26/21 13:20 Dose: 40 mg Documented by: Furosemide (Furosemide 40 Mg/4 Ml Vial) 40 mg IVPUSH BIDDIURETIC [facility] Last Admin: 05/28/21 15:04 Dose: Not Given Documented by: Hydrochlorothiazide (Hydrochlorothiazide 25 Mg Tab) 12.5 mg PO 2029 [facility] Last Admin: 05/27/21 21:13 Dose: 12.5 mg Documented by: Methylprednisolone Sodium Succinate (Methylprednisolone Sodium Succinate 125 Mg/2 Ml Sdv) 125 mg IVPUSH ONETIME ONE Stop: 05/26/21 07:05 Last Admin: 05/26/21 07:35 Dose: 125 mg Documented by: Methylprednisolone Sodium Succinate (Methylprednisolone Sodium Succinate 40 Mg/1 Ml Sdv) 40 mg IVPUSH DAILY [facility] Last Admin: 05/28/21 12:14 Dose: 40 mg Documented by: Metoprolol Succinate (Metoprolol Succinate 25 Mg Tab.Er) 25 mg PO DAILY [facility] Multivitamins/Minerals/Vitamin C (Multivitamin Tab) 1 tab PO 2029 [facility] Last Admin: 05/27/21 21:13 Dose: 1 tab Documented by: Non-Formulary Medication (Bioflav,Lemon/Vit Bcomp,C [Lipo-Flavonoid Plus Caplet]) 1 tab PO DAILY PRN PRN Reason: VERTIGO - Patient Data Lab Results Last 24 hrs: Laboratory Results - last 24 hr 05/28/21 Range/Units 05:25 Sodium 142 (136-145) mmol/L Potassium 3.5 (3.5-5.1) mmol/L Chloride 98 (98-107) mmol/L Carbon Dioxide 34 H (21-32) mmol/L Anion Gap 13.5 H (7-13) mEq/L BUN 29 H (7-18) mg/dL Creatinine 1.19 H (0.55-1.02) mg/dL Est Cr Clr Drug Dosing 30.32 mL/min Estimated GFR (MDRD) 44 Glucose 91 (70-99) mg/dL Calcium 9.0 (8.5-10.1) mg/dL Result Diagrams: 05/29/21 06:20 05/29/21 06:20 Jean Claude Results Last 24 hrs: Microbiology 05/26/21 08:22 Aerobic Blood Culture - Preliminary Blood - Arm, Right NO GROWTH AFTER 2 DAYS Anaerobic Blood Culture - Preliminary NO GROWTH AFTER 2 DAYS 05/26/21 07:18 Aerobic Blood Culture - Preliminary Blood - Venous - Iv Start NO GROWTH AFTER 2 DAYS Anaerobic Blood Culture - Preliminary NO GROWTH AFTER 2 DAYS Sepsis Event Note - Evaluation Sepsis Screening Result: No Definite Risk - Focused Exam Vital Signs: Vital Signs Temp Pulse Pulse Resp BP BP BP 05/28/21 20:26 59 L 151/48 H 01/03/22 16:00 97.7 F 60 16 154/51 H 05/28/21 12:17 64 173/68 H 05/28/21 12:00 97.1 F 67 14 172/58 H Pulse Ox 05/28/21 20:26 05/28/21 16:00 96 05/28/21 12:17 05/28/21 12:00 91 L - Problem List Review Problem List Initiated/Reviewed/Updated: Yes - My Orders Last 24 Hours: My Active Orders 05/28/21 10:31 6 Minute Walk Test [OM.PC] Routine 05/28/21 15:30 Furosemide [Lasix] 40 mg PO DAILY 05/28/21 20:32 Calcium Carbonate [Tums] 500 mg PO Q4H PRN 05/29/21 08:00 predniSONE 40 mg PO WITHBREAKFAST - Plan Plan:: SUBJECTIVE: Still dyspneic on moderate exertion; occasional cough with clear thick sputum. ROS otherwise negative for new or concerning findings. OBJECTIVE: O2 sat drops to mid 80s on room air. Heart and lung sounds unremarkable. No pitting edema in BLEs. Physical exam negative for new or concerning findings. ASSESSMENT / PLAN: Jenna was admitted for several days of dyspnea on mild exertion as well as increase in baseline cough, sputum production and BLE edema. Acute hypoxic resp failure. O2 sat drops to mid 80s on room air on assessment today (05/28); qualified for supplemental O2 2L at rest, 3L with activity via nasal cannula. Exacerbation of COPD, likely from continued cig smoking (half pack daily). Initial thought was pneumonia as well but her leukocytosis can be attributed to ongoing steroid use; zosyn discontinued 05/28. On prednisone. I discussed importance of quitting smoking with her and her son today. Acute on chronic diastolic heart failure NYHA class 2. Diagnosis supported by symptoms, elevated BNP and CXR finding. Lasix IV BID switched to 40mg oral on 05/28 (home dose 20mg Q48H). Last echo in 2017; updated echo via primary care provider will need to be advised. Stage 2 hypertension. SBP 170s today, likely from ongoing steroid use; will continue to monitor.. Lovenox subcu DNR, per prior discussion.
[2021-05-29 07:46] LABS: BASE EXCESS VENOUS 8.4 mmol/l ((-2)-(+3)); BICARBONATE,VENOUS 35 mmol/l (19-25); O2 DELIVERY DEVICE NASAL CANNULA; O2 SATURATION VENOUS 89.9 % (60-80); PCO2 VENOUS 54 mmHg (41-51); PH,VENOUS 7.43 (7.31-7.41); PO2 VENOUS 59 mmHg (35-42)
[2021-05-29 07:49] LABS: O2 FLOW RATE 0
[2021-05-29] MEDS ORDERED: predniSONE 20 MG Tab PO SCH (08:00)
[2021-05-29] MEDS: Furosemide 40 MG Tab PO SCH (08:31)
[2021-05-29] MEDS: Aspirin 81 MG Tab.EC PO SCH (08:31)
[2021-05-29] MEDS: MOMETASONE INH SCH (08:39)
[2021-05-29] MEDS: FORMOTEROL INH SCH (08:39)
[2021-05-29] MEDS: Metoprolol Succinate 25 MG Tab.ER PO SCH (08:40)
[2021-05-29] MEDS: Enoxaparin 40 MG/0.4 ML Syringe SUBCUT SCH (08:40)
[2021-05-29] MEDS ORDERED: Hydrochlorothiazide 25 MG Tab PO ONE (10:00)
--- NOTE | 2021-05-29 11:04 | PCM.DCSUM1 ---
Discharge Summary - Hospital Course Free Text/Narrative:: Jenna was admitted for several days of dyspnea on mild exertion as well as increase in baseline cough, sputum production and BLE edema. Acute hypoxic resp failure. O2 sat dropped to mid 80s on room air on assessment today (05/28); qualified for supplemental O2 2L at rest, 3L with activity via nasal cannula which was prescribed at discharge. Exacerbation of COPD, likely from continued cig smoking (half pack daily). Initial thought was pneumonia as well but her leukocytosis can be attributed to ongoing steroid use; received antibiotic (zosyn) for three days. Discharged on prednisone to complete a 5 days course. I discussed importance of quitting s moking with her and her son on 05/28. Acute on chronic diastolic heart failure NYHA class 2. Diagnosis supported by symptoms, elevated BNP and CXR finding. Lasix IV BID was switched to 40mg oral on 05/28 (home dose 20mg Q48H); I recommended discharge on 40mg PO daily but she insisted on [id number] prescription which I honored. Last echo in 2017; outpatient echo was placed whose result will need to be followed by primary care provider. We called her pick up driver in [place] who had availability to see her in a couple of days which she declined. Low sodium and fluid restriction to 1.5L daily was recommended. Discharged in improved and stable state. Discharge physical exam: Vitals largely non-concerning, heart and lung sounds normal, no BLE pitting edema, alert and oriented x3. - Discharge Data Discharge Date: 05/29/21 Discharge Disposition: Home, Self-Care 01 Condition: Fair - Referral to Home Health Primary Care Physician: PCP None - Patient Instructions Diet: Low Sodium Fluid Restriction: 1500 mL - Discharge Plan *PRESCRIPTION DRUG MONITORING PROGRAM REVIEWED*: Not Applicable *COPY OF PRESCRIPTION DRUG MONITORING REPORT IN PATIENT [facility]: Not Applicable Prescriptions/Med Rec: Albuterol/Ipratropium [DuoNeb 3.0-0.5 MG/3 ML] 3 ml INH Q6HR 10 Days #40 Furosemide [Lasix] 40 mg PO Q2D 20 Days #10 tablet predniSONE 40 mg PO WITHBREAKFAST 3 Days #3 tablet Home Medications: Home Meds Bioflav,Lemon/Vit Bcomp,C [Lipo-Flavonoid Plus Caplet] 1 tab PO DAILY PRN [History] Multivitamin [Multiple Vitamins] 1 tab PO 202912/11/16 [History] Fluticasone/Vilanterol [Breo Ellipta 100-25 MCG Inhalation Kit] 1 puff INH DAILY 12/16/16 [History] Metoprolol Succinate 50 mg PO 202901/14/17 [History] Albuterol [Ventolin HFA] 2 puff INH Q6H PRN 09/26/17 [History] Losartan Potassium [Cozaar] 100 mg PO 202903/02/19 [History] atorvaSTATin [Lipitor] 20 mg PO 202903/02/19 [History] Meclizine [Antivert] 25 mg PO TID PRN 06/23/20 [History] Metoprolol Succinate [Toprol XL] 25 mg PO DAILY 06/23/20 [History] Bisacodyl [Laxative Suppository] 1 supp RECTAL BID PRN 05/26/21 [History] Calcium Carbonate [Calcium] 1,200 mg PO 202905/26/21 [History] hydroCHLOROthiazide [Hydrochlorothiazide] 12.5 mg PO 202905/26/21 [History] Albuterol/Ipratropium [DuoNeb 3.0-0.5 MG/3 ML] 3 ml INH Q6HR 10 Days #40 05/29/21 [Rx] Aspirin [Halfprin] 81 mg PO DAILY tab.ec 05/29/21 [Rx] Furosemide [Lasix] 40 mg PO Q2D 20 Days #10 tablet 05/29/21 [Rx] predniSONE 40 mg PO WITHBREAKFAST 3 Days #3 tablet 05/29/21 [Rx] Oxygen Therapy Mode: Nasal Cannula Oxygen Flow Rate (L/min): 2 (2L at rest, 3L with activity.) Maintain SpO2% greater than: 90 Patient Handouts: Furosemide Oral Tablets, Chronic Obstructive Pulmonary Disease, [id number], Ipratropium; Albuterol Inhalation Solution, Prednisone tablets, Hypertension, Adult Referrals: Sherry Miller NP [Ordering Only Provider] - - Discharge Summary/Plan Comment DC Time >30 min.: Yes Total # of Minutes for Discharge Time: 35 - Patient Data Vitals - Most Recent: Last Vital Signs Temp 96.7 F L 05/29/21 08:00 Pulse 58 L 05/29/21 08:40 Resp 20 05/29/21 08:00 BP 160/58 H 05/29/21 08:40 Pulse Ox 98 05/29/21 08:00 Weight - Most Recent: 150 lb 3.2 oz I&O - Last 24 hours: Intake & Output 05/28/21 05/29/21 05/29/21 22:59 06:59 14:59 Intake Total 480 Output Total 350 900 Balance 130 -900 Lab Results - Last 24 hrs: Laboratory Results - last 24 hr 05/29/21 05/29/21 05/29/21 Range/Units 06:20 06:20 06:20 WBC 14.0 H (5.0-10.0) 10^3/uL RBC 4.41 (4.2-5.4) 10^6/uL Hgb 13.0 (12.0-16.0) g/dL Hct 40.0 (37.0-47.0) % MCV 90.7 (80-100) fL MCH 29.5 (27.0-34.0) pg MCHC 32.5 L (33.0-35.0) g/dL Plt Count 236 (150-450) 10^3/uL VBG pH 7.43 H (7.31-7.41) VBG pCO2 54 H (41-51) mmHg VBG pO2 59 H (35-42) mmHg VBG HCO3 35 H (19-25) mmol/l VBG O2 Saturation 89.9 H (60-80) % VBG Base Excess 8.4 H ((-2)-(+3)) mmol/l O2 Delivery Device Nasal cannula Oxygen Flow Rate 0 Sodium 143 (136-145) mmol/L Potassium 4.0 (3.5-5.1) mmol/L Chloride 100 (98-107) mmol/L Carbon Dioxide 34 H (21-32) mmol/L Anion Gap 13.0 (7-13) mEq/L BUN 28 H (7-18) mg/dL Creatinine 1.05 H (0.55-1.02) mg/dL Est Cr Clr Drug Dosing 34.36 mL/min Estimated GFR (MDRD) 51 BUN/Creatinine Ratio 26.7 (No establ ref range) Glucose 104 H (70-99) mg/dL Calcium 8.3 L (8.5-10.1) mg/dL Total Bilirubin 0.4 (0.2-1.0) mg/dL AST 14 L (15-37) U/L ALT 22 (14-59) U/L Alkaline Phosphatase 84 (46-116) U/L Total Protein 6.9 (6.4-8.2) g/dL Albumin 3.4 (3.4-5.0) g/dL Globulin 3.5 Albumin/Globulin Ratio 1.0 ROSSANA Results - Last 24 hrs: Microbiology 05/26/21 08:22 Aerobic Blood Culture - Preliminary Blood - Arm, Right NO GROWTH AFTER 3 DAYS Anaerobic Blood Culture - Preliminary NO GROWTH AFTER 3 DAYS 05/26/21 07:18 Aerobic Blood Culture - Preliminary Blood - Venous - Iv Start NO GROWTH AFTER 3 DAYS Anaerobic Blood Culture - Preliminary NO GROWTH AFTER 3 DAYS Med Orders - Current: Current Medications Acetaminophen (Acetaminophen 325 Mg Tab) 650 mg PO Q4H PRN PRN Reason: Pain (mild 1-3 )/fever Last Admin: 05/26/21 16:20 Dose: 650 mg Documented by: Albuterol (Albuterol 0.083% 2.5 Mg/3 Ml Neb Soln) 2.5 mg NEB Q6H PRN PRN Reason: Shortness of Breath Albuterol (Albuterol 6.7 Gm Inhaler) 0 gm INH Q6H PRN PRN Reason: Wheezing Albuterol/Ipratropium (Albuterol/Ipratropium 3.0-0.5 Mg/3 Ml Neb Soln) 3 ml INH Q6H PRN PRN Reason: Wheezing Last Admin: 05/28/21 07:56 Dose: 3 ml Documented by: Aspirin (Aspirin 81 Mg Tab.Ec) [address] [facility] Last Admin: 05/29/21 08:31 Dose: 81 mg Documented by: Atorvastatin Calcium (Atorvastatin 20 Mg Tab) [address] [facility] Last Admin: 05/28/21 20:26 Dose: 20 mg Documented by: Bisacodyl (Bisacodyl 10 Mg Supp) 10 mg RECTAL BID PRN PRN Reason: Constipation Last Admin: 05/27/21 11:15 Dose: 10 mg Documented by: Calcium Carbonate/Glycine (Calcium Carbonate 500 Mg Tab.Chew) 500 mg PO Q4H PRN PRN Reason: Indigestion Docusate Sodium (Docusate Sodium 100 Mg Cap) 100 mg PO DAILY PRN PRN Reason: Constipation Enoxaparin Sodium (Enoxaparin 40 Mg/0.4 Ml Syringe) [address] [facility] Last Admin: 05/29/21 08:40 Dose: 40 mg Documented by: Furosemide (Furosemide 40 Mg Tab) [address] [facility] Last Admin: 05/29/21 08:31 Dose: 40 mg Documented by: Losartan Potassium (Losartan 50 Mg Tab) [address] [facility] Last Admin: 05/28/21 20:26 Dose: 100 mg Documented by: Meclizine HCl (Meclizine 12.5 Mg Tab) 25 mg PO TID PRN PRN Reason: VERTIGO Methyl Salicylate (Menthol/Methyl Salicylate 85 Gm Tube) 1 gm TOP QID PRN PRN Reason: Pain (mild 1-3) Last Admin: 05/27/21 14:49 Dose: 1 applic Documented by: Metoprolol Succinate (Metoprolol Succinate 50 Mg Tab.Er) [address] [facility] Last Admin: 05/28/21 20:26 Dose: 50 mg Documented by: Metoprolol Succinate (Metoprolol Succinate 25 Mg Tab.Er) [address] [facility] Last Admin: 05/29/21 08:40 Dose: 25 mg Documented by: Mometasone Furoate/Formoterol Fumar (Formoterol/Mometasone 100-5 Mcg 13 Gm Inhaler) [address] [facility] Last Admin: 05/29/21 08:39 Dose: 2 puff Documented by: Prednisone (Prednisone 20 Mg Tab) [address] [facility] Last Admin: 05/29/21 08:32 Dose: 40 mg Documented by: Sodium Chloride (Sodium Chloride 0.9% 10 Ml Syringe) 10 ml FLUSH ASDIRECTED PRN PRN Reason: Keep Vein Open Last Admin: 05/27/21 14:48 Dose: 10 ml Documented by: Discontinued Medications Albuterol/Ipratropium (Albuterol/Ipratropium 3.0-0.5 Mg/3 Ml Neb Soln) 3 ml NEB ONETIME ONE Stop: 05/26/21 07:05 Last Admin: 05/26/21 07:33 Dose: 3 ml Documented by: Albuterol/Ipratropium (Albuterol/Ipratropium 3.0-0.5 Mg/3 Ml Neb Soln) 3 ml NEB ONETIME ONE Stop: 05/26/21 08:25 Last Admin: 05/26/21 09:09 Dose: 3 ml Documented by: Aspirin (Aspirin 325 Mg Tab.Ec) [address] [facility] Aspirin (Aspirin 325 Mg Tab.Ec) [address] [facility] Last Admin: 05/26/21 15:13 Dose: Not Given Documented by: Calcium Carbonate/Glycine (Calcium Carbonate 500 Mg Tab.Chew) 1,[address] [facility] Last Admin: 05/27/21 21:14 Dose: 1,000 mg Documented by: Furosemide (Furosemide 100 Mg/10 Ml Sdv) 80 mg IVPUSH ONETIME ONE Stop: 05/26/21 09:23 Last Admin: 05/26/21 09:45 Dose: 80 mg Documented by: Furosemide (Furosemide 40 Mg/4 Ml Vial) 40 mg IVPUSH ONETIME ONE Stop: 05/26/21 13:01 Last Admin: 05/26/21 13:20 Dose: 40 mg Documented by: Furosemide (Furosemide 40 Mg/4 Ml Vial) [address] [facility] Last Admin: 05/28/21 15:04 Dose: Not Given Documented by: Hydrochlorothiazide (Hydrochlorothiazide 25 Mg Tab) 12.[address] [facility] Last Admin: 05/27/21 21:13 Dose: 12.5 mg Documented by: Hydrochlorothiazide (Hydrochlorothiazide 25 Mg Tab) 12.5 mg PO ONETIME ONE Stop: 05/29/21 10:01 Last Admin: 05/29/21 10:13 Dose: 12.5 mg Documented by: Piperacillin Sod/Tazobactam (Sod 3.375 gm/ Sodium Chloride) 100 mls @ 200 mls/hr IV Q6H [facility] Last Infusion: 05/28/21 17:59 Dose: 200 mls/hr Documented by: Methylprednisolone Sodium Succinate (Methylprednisolone Sodium Succinate 125 Mg/2 Ml Sdv) 125 mg IVPUSH ONETIME ONE Stop: 05/26/21 07:05 Last Admin: 05/26/21 07:35 Dose: 125 mg Documented by: Methylprednisolone Sodium Succinate (Methylprednisolone Sodium Succinate 40 Mg/1 Ml Sdv) [address] [facility] Last Admin: 05/28/21 12:14 Dose: 40 mg Documented by: Metoprolol Succinate (Metoprolol Succinate 25 Mg Tab.Er) [address] [facility] Multivitamins/Minerals/Vitamin C (Multivitamin Tab) [address] [facility] Last Admin: 05/27/21 21:13 Dose: 1 tab Documented by: Non-Formulary Medication (Bioflav,Lemon/Vit Bcomp,C [Lipo-Flavonoid Plus Caplet]) 1 tab PO DAILY PRN PRN Reason: VERTIGO
[2021-05-29 14:59] VITALS: BP 140/57; PULSE 63
== END 2021-05-29 14:23 | disposition home or self-care (01) | DRG 291 ==
LOC: DL.ED 06:46 → DL.MS 10:40
PROVIDERS: ADMIT Internal Medicine Nephrology; ATTEND Student in an Organized Health Care Education/Training Program
DX: I13.0 Hypertensive heart and chronic kidney disease with heart failure and stage 1 through stage 4 chronic kidney disease, or unspecified chronic kidney disease (principal); J81.0 Acute pulmonary edema; Z87.891 Personal history of nicotine dependence; Z85.828 Personal history of other malignant neoplasm of skin; J96.01 Acute respiratory failure with hypoxia; I50.33 Acute on chronic diastolic (congestive) heart failure; E78.00 Pure hypercholesterolemia, unspecified; I12.9 Hypertensive chronic kidney disease with stage 1 through stage 4 chronic kidney disease, or unspecified chronic kidney disease; J44.1 Chronic obstructive pulmonary disease with (acute) exacerbation; F17.210 Nicotine dependence, cigarettes, uncomplicated; Z66 Do not resuscitate; H54.7 Unspecified visual loss; M19.90 Unspecified osteoarthritis, unspecified site; H81.10 Benign paroxysmal vertigo, unspecified ear; Z79.82 Long term (current) use of aspirin; Z79.899 Other long term (current) drug therapy; Z20.822 Contact with and (suspected) exposure to COVID-19; N18.30 Chronic kidney disease, stage 3 unspecified; E78.5 Hyperlipidemia, unspecified; I25.10 Atherosclerotic heart disease of native coronary artery without angina pectoris; Z95.1 Presence of aortocoronary bypass graft; I25.2 Old myocardial infarction; Z95.5 Presence of coronary angioplasty implant and graft; Z97.3 Presence of spectacles and contact lenses; Z90.710 Acquired absence of both cervix and uterus; Z98.890 Other specified postprocedural states; Z90.89 Acquired absence of other organs; Z90.49 Acquired absence of other specified parts of digestive tract
CPT/HCPCS: 0241U; 36415; 71045; 80048; 80053; 82803; 83880; 84484; 85025; 85027; 87040; 93005; 94640; 96374; 96375; 99285; A9270-GY; J1650; J1940; J2543; J2920; J2930; J7512; J7620-GY

== ENCOUNTER 2021-06-26 21:21 | Observation (INO) | payer MEDICARE, BC ==
[2021-06-26] MEDS ORDERED: Metoprolol Succinate 50 MG Tab.ER PO ONE (22:32)
[2021-06-26] MEDS ORDERED: Glucagon,Human Recombinant 1 MG Vial IVPUSH ONE (22:32)
[2021-06-27] MEDS ORDERED: hydrALAZINE 20 MG/ML SDV IVPUSH PRN (00:29)
[2021-06-27] MEDS ORDERED: oxyCODONE 5 MG Tab PO PRN (00:38)
[2021-06-27] MEDS ORDERED: Acetaminophen 325 MG Tab PO PRN (00:38)
[2021-06-27] MEDS ORDERED: Temazepam 15 MG Cap PO PRN (00:38)
[2021-06-27] MEDS ORDERED: Ondansetron 4 MG/2 ML SDV IVPUSH PRN (00:38)
[2021-06-27] MEDS ORDERED: Sodium Chloride 0.9% 10 ML Syringe FLUSH PRN (00:38)
[2021-06-27] MEDS ORDERED: NS + KCl 20mEq/L 1,000 ML IV SCH (01:00)
[2021-06-27 05:58] LABS: CHLORIDE,CL 105 mmol/L (98-107); SODIUM,NA 138 mmol/L (136-145)
[2021-06-27] MEDS ORDERED: Heparin Sodium 5,000 Units/ML Vial SUBCUT SCH (06:00)
[2021-06-27] MEDS ORDERED: Albuterol/Ipratropium 3.0-0.5 MG/3 ML Neb Soln INH SCH (07:00)
[2021-06-27] MEDS ORDERED: Budesonide 0.5 MG/2 ML Neb Susp NEB SCH (07:00)
[2021-06-27 08:24] VITALS: BP 150/45; PULSE 58
[2021-06-27] MEDS ORDERED: Metoprolol Succinate 50 MG Tab.ER PO SCH ×2 (09:00→21:00)
[2021-06-27] MEDS ORDERED: Sodium Chloride 0.9% 10 ML Syringe FLUSH SCH (09:00)
[2021-06-27] MEDS ORDERED: Losartan 50 MG Tab PO SCH (09:00)
[2021-06-27] MEDS ORDERED: Pantoprazole 40 MG Vial IVPUSH SCH (09:00)
[2021-06-27] MEDS ORDERED: Aspirin 81 MG Tab.EC PO SCH (09:00)
[2021-06-27] MEDS ORDERED: Metoprolol Tartrate 25 MG Tab PO SCH (11:00)
== END 2021-06-27 12:15 | disposition home or self-care (01) ==
LOC: DL.ED 21:21 → DL.MS 23:28
PROVIDERS: ADMIT Internal Medicine; ATTEND Internal Medicine
DX: K22.2 Esophageal obstruction (principal); T18.128A Food in esophagus causing other injury, initial encounter; K29.70 Gastritis, unspecified, without bleeding; I25.810 Atherosclerosis of coronary artery bypass graft(s) without angina pectoris; E78.00 Pure hypercholesterolemia, unspecified; I25.2 Old myocardial infarction; J44.9 Chronic obstructive pulmonary disease, unspecified; I13.0 Hypertensive heart and chronic kidney disease with heart failure and stage 1 through stage 4 chronic kidney disease, or unspecified chronic kidney disease; N17.9 Acute kidney failure, unspecified; M19.90 Unspecified osteoarthritis, unspecified site; E66.9 Obesity, unspecified; F17.210 Nicotine dependence, cigarettes, uncomplicated; Z79.82 Long term (current) use of aspirin; Z90.49 Acquired absence of other specified parts of digestive tract; Z98.890 Other specified postprocedural states; Z20.822 Contact with and (suspected) exposure to COVID-19; Z68.28 Body mass index [BMI] 28.0-28.9, adult
CPT/HCPCS: 36415; 43235; 80048; 85025; 96361; 96372; 96374; 96375; 99284; 99285; A9270; C9113; G0378; J1610; J1644; J2060; J2250; J2704; J2765; J3010; J3480; J7042; U0002; J7620-GY

== ENCOUNTER → 2021-06-26 | Emergency (ER) | payer MEDICARE, BC ==
[~2021-06-26] MED LIST changes: +Glucagon,Human Recombinant 1 MG Vial IVPUSH ONE; +Ketamine 500 mg/10 ML MDV IV ONE; +LORazepam 2 MG/ML SDV IVPUSH ONE; +Metoclopramide 10 MG/2 ML SDV IVPUSH ONE; +Midazolam 1 MG/ML 2 ML SDV IV ONE; +Pantoprazole 40 MG Vial IVPUSH ONE; +Propofol 200 MG/20 ML SDV IV ONE; +fentaNYL 100 MCG/2 ML SDV IV ONE
[2021-06-26 22:10] VITALS: BP 157/49; PULSE 57
== END ==
LOC: DL.ED 13:23 → DL.SDS 15:30
DX: T18.128A Food in esophagus causing other injury, initial encounter (principal); I25.810 Atherosclerosis of coronary artery bypass graft(s) without angina pectoris; E78.00 Pure hypercholesterolemia, unspecified; I25.2 Old myocardial infarction; J44.9 Chronic obstructive pulmonary disease, unspecified; I13.0 Hypertensive heart and chronic kidney disease with heart failure and stage 1 through stage 4 chronic kidney disease, or unspecified chronic kidney disease; I50.9 Heart failure, unspecified; N18.30 Chronic kidney disease, stage 3 unspecified; N17.9 Acute kidney failure, unspecified; M19.90 Unspecified osteoarthritis, unspecified site; E66.9 Obesity, unspecified; Z68.28 Body mass index [BMI] 28.0-28.9, adult; Z91.048 Other nonmedicinal substance allergy status; Z79.82 Long term (current) use of aspirin; Z79.899 Other long term (current) drug therapy; Z20.822 Contact with and (suspected) exposure to COVID-19
CPT/HCPCS: 43235; 96374; 96375; 99284; C9113; J1610; J2060; J2250; J2704; J2765; J3010; J7042; U0002

== ENCOUNTER 2022-02-22 11:29 | Emergency (ER) | payer MEDICARE, BC ==
[2022-02-22 12:12] VITALS: BP 149/54; PULSE 62
[2022-02-22 12:35] LABS: ANION GAP 10.7 mEq/L (7-13)
== END 2022-02-22 12:59 | disposition home or self-care (01) ==
LOC: DL.ED 11:29
DX: R07.89 Other chest pain (principal); I25.10 Atherosclerotic heart disease of native coronary artery without angina pectoris; E78.00 Pure hypercholesterolemia, unspecified; I12.9 Hypertensive chronic kidney disease with stage 1 through stage 4 chronic kidney disease, or unspecified chronic kidney disease; N18.30 Chronic kidney disease, stage 3 unspecified; J44.9 Chronic obstructive pulmonary disease, unspecified; K21.9 Gastro-esophageal reflux disease without esophagitis; Z95.1 Presence of aortocoronary bypass graft; Z91.09 Other allergy status, other than to drugs and biological substances; Z79.82 Long term (current) use of aspirin; Z79.899 Other long term (current) drug therapy
CPT/HCPCS: 36415; 71045; 80053; 83605; 84484; 85025; 93005; 93010; 99284; 99285

== ENCOUNTER 2022-12-19 15:28 | Emergency (ER) | payer MEDICARE, BC ==
[2022-12-19] MEDS ORDERED: Diltiazem 25 MG/5 ML SDV IVPUSH ONE (16:16)
[2022-12-19 16:20] VITALS: BP 134/76; PULSE 127
[2022-12-19 16:25] LABS: BASOPHILS PERCENT AUTO 0.2 % (0.0-1.0); EOSINOPHILS PERCENT AUTO 1.5 % (1.0-3.0); HEMATOCRIT 43.3 % (37.0-47.0); HEMOGLOBIN 14.5 g/dL (12.0-16.0); MEAN CORPUSCULAR HEMOGLOBIN 31.1 pg (27.0-34.0); MEAN CORPUSCULAR HGB CONC 33.5 g/dL (33.0-35.0); MEAN CORPUSCULAR VOLUME 92.9 fL (80-100); MONOCYTES PERCENT AUTO 9.2 % (2-8); NEUTROPHILS PERCENT AUTO 75.1 % (42.2-75.2); PLATELET COUNT,PLT 205 10^3/uL (150-450); RED BLOOD CELL COUNT 4.66 10^6/uL (4.2-5.4); WHITE BLOOD CELL COUNT,WBC 12.3 10^3/uL (5.0-10.0)
[2022-12-19 16:36] LABS: ALANINE AMINOTRANSFERASE,ALT 18 U/L (14-59); ALBUMIN 3.5 g/dL (3.4-5.0); ALKALINE PHOSPHATASE 88 U/L (46-116); ANION GAP 12.1 mEq/L (7-13); ASPARTATE AMNIOTRANSFERASE,AST 12 U/L (15-37); BILIRUBIN TOTAL 0.5 mg/dL (0.2-1.0); BLOOD UREA NITROGEN,BUN 12 mg/dL (7-18); BUN/CREATININE RATIO 13.2 (No establ ref range); CALCIUM 9.2 mg/dL (8.5-10.1); CARBON DIOXIDE,CO2 31 mmol/L (21-32); CHLORIDE,CL 101 mmol/L (98-107); CREATININE 0.91 mg/dL (0.55-1.02); EST CRCL DRUG DOSING (CG) 37.21 mL/min; GLUCOSE RANDOM 117 mg/dL (70-99); MAGNESIUM 2.1 mg/dL (1.8-2.4); POTASSIUM,K 4.1 mmol/L (3.5-5.1); PROTEIN TOTAL,TP 6.9 g/dL (6.4-8.2); SODIUM,NA 140 mmol/L (136-145)
[2022-12-19 16:37] LABS: C-REACTIVE PROTEIN < 0.2 mg/dL (0.0-0.9); ESTIMATED GFR 64 mL/min (>=60)
[2022-12-19 16:56] LABS: B-TYPE NATRIURETIC PEPTIDE,BNP 500 pg/ml (0-100)
== END 2022-12-19 19:10 ==
LOC: DL.ED 15:28
DX: I13.0 Hypertensive heart and chronic kidney disease with heart failure and stage 1 through stage 4 chronic kidney disease, or unspecified chronic kidney disease (principal); N18.9 Chronic kidney disease, unspecified; I25.2 Old myocardial infarction; F17.210 Nicotine dependence, cigarettes, uncomplicated; J44.9 Chronic obstructive pulmonary disease, unspecified; K21.9 Gastro-esophageal reflux disease without esophagitis; Z95.1 Presence of aortocoronary bypass graft; Z91.09 Other allergy status, other than to drugs and biological substances; Z79.899 Other long term (current) drug therapy
CPT/HCPCS: 36415; 51702; 71045; 80053; 83605; 83735; 83880; 84484; 85025; 85379; 86140; 93005; 96374; 99285; J3490

== ENCOUNTER 2023-04-14 09:19 | Inpatient (IN) | payer MEDICARE, BC ==
[2023-04-14] MEDS: Sodium Chloride 0.9% 10 ML Syringe FLUSH PRN (09:36)
[2023-04-14 09:43] LABS: BASOPHILS PERCENT AUTO 0.2 % (0.0-1.0); EOSINOPHILS PERCENT AUTO 1.1 % (1.0-3.0); HEMATOCRIT 39.5 % (37.0-47.0); HEMOGLOBIN 12.9 g/dL (12.0-16.0); LYMPHOCYTES PERCENT AUTO 15.1 % (20.5-50.1); MEAN CORPUSCULAR HEMOGLOBIN 30.4 pg (27.0-34.0); MEAN CORPUSCULAR HGB CONC 32.7 g/dL (33.0-35.0); MEAN CORPUSCULAR VOLUME 93.2 fL (80-100); MONOCYTES PERCENT AUTO 16.6 % (2-8); PLATELET COUNT,PLT 180 10^3/uL (150-450); RED BLOOD CELL COUNT 4.24 10^6/uL (4.2-5.4); WHITE BLOOD CELL COUNT,WBC 6.1 10^3/uL (5.0-10.0)
[2023-04-14] MEDS ORDERED: Albuterol/Ipratropium 3.0-0.5 MG/3 ML Neb Soln NEB ONE (09:47)
[2023-04-14] MEDS: Albuterol/Ipratropium 3.0-0.5 MG/3 ML Neb Soln ONE (09:57)
[2023-04-14] MEDS ORDERED: methylPREDNISolone Sodium Succinate 125 MG/2 ML SDV IVPUSH ONE (09:59)
[2023-04-14 10:00] LABS: PROTHROMBIN TIME 10.2 SEC (9.0-12.0); PTT,PARTIAL THROMBOPLSTIN TIME 40.1 SEC (22.0-34.0)
[2023-04-14 10:06] LABS: LACTIC ACID 1.4 mmol/L (0.4-2.0)
[2023-04-14 10:08] LABS: B-TYPE NATRIURETIC PEPTIDE,BNP 719 pg/ml (0-100)
[2023-04-14 10:12] LABS: ALANINE AMINOTRANSFERASE,ALT 25 U/L (14-59); ALBUMIN 3.3 g/dL (3.4-5.0); ALKALINE PHOSPHATASE 98 U/L (46-116); ANION GAP 9.9 mEq/L (7-13); ASPARTATE AMNIOTRANSFERASE,AST 22 U/L (15-37); BILIRUBIN TOTAL 0.7 mg/dL (0.2-1.0); BLOOD UREA NITROGEN,BUN 12 mg/dL (7-18); BUN/CREATININE RATIO 13.5 (No establ ref range); C-REACTIVE PROTEIN 5.78 ng/dL (<=0.50); CALCIUM 9.1 mg/dL (8.5-10.1); CARBON DIOXIDE,CO2 31 mmol/L (21-32); CHLORIDE,CL 100 mmol/L (98-107); CREATININE 0.89 mg/dL (0.55-1.02); EST CRCL DRUG DOSING (CG) 37.41 mL/min; GLUCOSE RANDOM 122 mg/dL (70-99); POTASSIUM,K 3.9 mmol/L (3.5-5.1); PROTEIN TOTAL,TP 7.3 g/dL (6.4-8.2); SODIUM,NA 137 mmol/L (136-145)
[2023-04-14 10:13] LABS: A/G RATIO 0.83; ESTIMATED GFR 65 mL/min (>=60)
[2023-04-14] MEDS ORDERED: Albuterol 0.083% 2.5 MG/3 ML Neb Soln ONE (10:50)
[2023-04-14] MEDS ORDERED: Furosemide 40 MG/4 ML VIAL IVPUSH ONE (11:52)
[2023-04-14] MEDS ORDERED: Sennosides/Docusate Sodium 50-8.6 MG Tab PO PRN (12:29)
[2023-04-14] MEDS ORDERED: Magnesium Hydroxide 400 MG/5 ML Susp 30 ML Cup PO PRN (12:29)
[2023-04-14] MEDS ORDERED: Polyethylene Glycol 3350 Powder 17 GM Packet PO PRN (12:29)
[2023-04-14] MEDS ORDERED: Acetaminophen 325 MG Tab PO PRN (12:29)
[2023-04-14] MEDS ORDERED: Albuterol/Ipratropium 3.0-0.5 MG/3 ML Neb Soln NEB PRN (12:29)
[2023-04-14] MEDS ORDERED: Naloxone 2 MG/2 ML Syringe IVPUSH PRN (12:29)
[2023-04-14] MEDS ORDERED: Ondansetron 4 MG/2 ML SDV IVPUSH PRN (12:29)
[2023-04-14] MEDS ORDERED: HYDROmorphone 0.5 MG/0.5 ML Syringe IVPUSH PRN (12:29)
[2023-04-14] MEDS ORDERED: Acetaminophen/HYDROcodone 325-5 MG Tab PO PRN (12:29)
[2023-04-14] MEDS ORDERED: guaiFENesin 600 MG Tab.ER PO ONE (12:33)
[2023-04-14] MEDS ORDERED: guaiFENesin/Dextromethorphan 100-10 MG/5 ML Soln 5 ML Cup PO PRN (12:33)
[2023-04-14] MEDS ORDERED: REMDESIVIR 200 MG in Sodium Chloride 0.9% 250 ML IV ONE (12:34)
[2023-04-14] MEDS ORDERED: 50% Dextrose in Water 50 ML Syringe IVPUSH PRN (12:36)
[2023-04-14] MEDS ORDERED: Glucagon,Human Recombinant 1 MG Vial IM PRN (12:36)
[2023-04-14] MEDS ORDERED: Metoprolol Tartrate 5 MG/5 ML SDV IVPUSH PRN (12:38)
[2023-04-14] MEDS ORDERED: hydrALAZINE 20 MG/ML SDV IVPUSH PRN (12:38)
[2023-04-14] MEDS: Azithromycin 500 MG in Sodium Chloride 0.9% 250 ML IV SCH (14:37)
[2023-04-14] MEDS: Famotidine 20 MG Tab PO SCH (14:38)
[2023-04-14] MEDS ORDERED: Meclizine 12.5 MG Tab PO PRN (15:37)
[2023-04-14] MEDS: Albuterol/Ipratropium 3.0-0.5 MG/3 ML Neb Soln NEB SCH ×2 (16:47→18:13)
[2023-04-14] MEDS: Insulin Lispro 100 Units/ML 3 ML Vial SUBCUT SCH (19:38)
[2023-04-14] MEDS: guaiFENesin 600 MG Tab.ER PO SCH (22:00)
[2023-04-14] MEDS: Metoprolol Succinate 50 MG Tab.ER PO SCH (22:00)
[2023-04-14] MEDS: Dexamethasone 4 MG Tab PO SCH (22:00)
[2023-04-14] MEDS: Losartan 50 MG Tab PO SCH (22:00)
[2023-04-15] MEDS: Albuterol/Ipratropium 3.0-0.5 MG/3 ML Neb Soln NEB SCH ×6 (00:03→23:37)
[2023-04-15] MEDS: Formoterol/Mometasone 100-5 MCG 8.8 GM Inhaler IH SCH ×2 (05:50→21:17)
[2023-04-15 06:38] LABS: BASOPHILS PERCENT AUTO 0.2 % (0.0-1.0); HEMATOCRIT 37.1 % (37.0-47.0); HEMOGLOBIN 12.3 g/dL (12.0-16.0); LYMPHOCYTES PERCENT AUTO 11.4 % (20.5-50.1); MEAN CORPUSCULAR HEMOGLOBIN 30.4 pg (27.0-34.0); MEAN CORPUSCULAR HGB CONC 33.2 g/dL (33.0-35.0); MEAN CORPUSCULAR VOLUME 91.6 fL (80-100); MONOCYTES PERCENT AUTO 6.7 % (2-8); NEUTROPHILS PERCENT AUTO 81.7 % (42.2-75.2); PLATELET COUNT,PLT 185 10^3/uL (150-450); RED BLOOD CELL COUNT 4.05 10^6/uL (4.2-5.4); WHITE BLOOD CELL COUNT,WBC 6.4 10^3/uL (5.0-10.0)
[2023-04-15 07:02] LABS: ANION GAP 12.6 mEq/L (7-13); BILIRUBIN DIRECT 0.1 mg/dL (0.0-0.2); BILIRUBIN TOTAL 0.5 mg/dL (0.2-1.0); BUN/CREATININE RATIO 18.4 (No establ ref range); C-REACTIVE PROTEIN 5.71 ng/dL (<=0.50); CALCIUM 8.8 mg/dL (8.5-10.1); CREATININE 1.03 mg/dL (0.55-1.02); EST CRCL DRUG DOSING (CG) 33.1 mL/min; MAGNESIUM 2.1 mg/dL (1.8-2.4); POTASSIUM,K 3.6 mmol/L (3.5-5.1); PROTEIN TOTAL,TP 6.8 g/dL (6.4-8.2)
[2023-04-15 07:05] LABS: A/G RATIO 0.79
[2023-04-15] MEDS ORDERED: Apixaban 5 MG Tab PO SCH (09:00)
[2023-04-15] MEDS ORDERED: Enoxaparin 40 MG/0.4 ML Syringe SUBCUT SCH (09:00)
[2023-04-15] MEDS: amLODIPine 5 MG Tab PO SCH (09:01)
[2023-04-15] MEDS: Aspirin 81 MG Tab.EC PO SCH (09:01)
[2023-04-15] MEDS: Dexamethasone 4 MG Tab PO SCH ×2 (09:01→21:12)
[2023-04-15] MEDS: Multivitamin Tab PO SCH (09:01)
[2023-04-15] MEDS: guaiFENesin 600 MG Tab.ER PO SCH ×2 (09:01→21:12)
[2023-04-15] MEDS: Metoprolol Succinate 50 MG Tab.ER PO SCH ×2 (09:02→21:11)
[2023-04-15] MEDS: Famotidine 20 MG Tab PO SCH (09:02)
[2023-04-15] MEDS: Calcium Carbonate/Vitamin D3 1250 MG-5 MCG Tab PO SCH (09:02)
[2023-04-15] MEDS: Insulin Lispro 100 Units/ML 3 ML Vial SUBCUT SCH ×3 (09:24→16:35)
[2023-04-15] MEDS: REMDESIVIR 100 MG in Sodium Chloride 0.9% 100 ML IV SCH (12:00)
[2023-04-15] MEDS: Azithromycin 500 MG in Sodium Chloride 0.9% 250 ML IV SCH (13:50)
[2023-04-15] MEDS: D EYEBOTH PRN (17:51)
[2023-04-15] MEDS: Losartan 50 MG Tab PO SCH (21:11)
[2023-04-15] MEDS: Apixaban 5 MG Tab PO SCH (21:12)
[2023-04-15] MEDS: Melatonin 3 MG Tab PO PRN (22:10)
[2023-04-16] MEDS: Formoterol/Mometasone 100-5 MCG 8.8 GM Inhaler IH SCH ×3 (05:58→19:39)
[2023-04-16] MEDS: Albuterol/Ipratropium 3.0-0.5 MG/3 ML Neb Soln NEB SCH ×4 (05:58→19:39)
[2023-04-16 06:33] LABS: HEMATOCRIT 36.5 % (37.0-47.0); LYMPHOCYTES PERCENT AUTO 6.1 % (20.5-50.1); MEAN CORPUSCULAR HEMOGLOBIN 30.3 pg (27.0-34.0); MEAN CORPUSCULAR HGB CONC 32.9 g/dL (33.0-35.0); MEAN CORPUSCULAR VOLUME 92.2 fL (80-100); MONOCYTES PERCENT AUTO 4.5 % (2-8); NEUTROPHILS PERCENT AUTO 89.4 % (42.2-75.2); PLATELET COUNT,PLT 204 10^3/uL (150-450); RED BLOOD CELL COUNT 3.96 10^6/uL (4.2-5.4); WHITE BLOOD CELL COUNT,WBC 12.9 10^3/uL (5.0-10.0)
[2023-04-16 07:15] LABS: POTASSIUM,K 4.4 mmol/L (3.5-5.1)
[2023-04-16 07:16] LABS: ALBUMIN 2.8 g/dL (3.4-5.0); ANION GAP 10.4 mEq/L (7-13); BILIRUBIN DIRECT 0.1 mg/dL (0.0-0.2); BILIRUBIN TOTAL 0.4 mg/dL (0.2-1.0); BUN/CREATININE RATIO 30.5 (No establ ref range); C-REACTIVE PROTEIN 2.5 ng/dL (<=0.50); CALCIUM 8.9 mg/dL (8.5-10.1); CREATININE 0.95 mg/dL (0.55-1.02); EST CRCL DRUG DOSING (CG) 35.89 mL/min; MAGNESIUM 2.2 mg/dL (1.8-2.4); PROTEIN TOTAL,TP 6.1 g/dL (6.4-8.2)
[2023-04-16 07:17] LABS: A/G RATIO 0.85
[2023-04-16] MEDS: Insulin Lispro 100 Units/ML 3 ML Vial SUBCUT SCH ×3 (09:10→17:26)
[2023-04-16] MEDS: Famotidine 20 MG Tab PO SCH (09:11)
[2023-04-16] MEDS: Calcium Carbonate/Vitamin D3 1250 MG-5 MCG Tab PO SCH (09:11)
[2023-04-16] MEDS: guaiFENesin 600 MG Tab.ER PO SCH ×2 (09:11→21:10)
[2023-04-16] MEDS: Aspirin 81 MG Tab.EC PO SCH (09:11)
[2023-04-16] MEDS: amLODIPine 5 MG Tab PO SCH (09:13)
[2023-04-16] MEDS: Metoprolol Succinate 50 MG Tab.ER PO SCH ×2 (09:14→21:10)
[2023-04-16] MEDS: Multivitamin Tab PO SCH (09:14)
[2023-04-16] MEDS: Apixaban 5 MG Tab PO SCH ×2 (09:14→21:10)
[2023-04-16] MEDS: Dexamethasone 4 MG Tab PO SCH ×2 (09:14→21:10)
[2023-04-16] MEDS: Furosemide 20 MG Tab PO PRN (10:19)
[2023-04-16] MEDS: REMDESIVIR 100 MG in Sodium Chloride 0.9% 100 ML IV SCH (12:12)
[2023-04-16] MEDS: Azithromycin 500 MG in Sodium Chloride 0.9% 250 ML IV SCH (13:41)
[2023-04-16] MEDS: Piperacillin/Tazobactam 3.375 GM in Sodium Chloride 0.9% 100 ML IV SCH (18:28)
[2023-04-16] MEDS: Losartan 50 MG Tab PO SCH (21:11)
[2023-04-17] MEDS: Piperacillin/Tazobactam 3.375 GM in Sodium Chloride 0.9% 100 ML IV SCH ×4 (00:01→18:36)
[2023-04-17] MEDS: Albuterol/Ipratropium 3.0-0.5 MG/3 ML Neb Soln NEB SCH ×4 (00:08→17:00)
[2023-04-17 06:11] LABS: HEMATOCRIT 34.9 % (37.0-47.0); HEMOGLOBIN 11.4 g/dL (12.0-16.0); LYMPHOCYTES PERCENT AUTO 4.8 % (20.5-50.1); MEAN CORPUSCULAR HEMOGLOBIN 30.4 pg (27.0-34.0); MEAN CORPUSCULAR HGB CONC 32.7 g/dL (33.0-35.0); MEAN CORPUSCULAR VOLUME 93.1 fL (80-100); MONOCYTES PERCENT AUTO 3.1 % (2-8); NEUTROPHILS PERCENT AUTO 92.1 % (42.2-75.2); PLATELET COUNT,PLT 219 10^3/uL (150-450); RED BLOOD CELL COUNT 3.75 10^6/uL (4.2-5.4)
[2023-04-17 06:28] LABS: ALBUMIN 2.6 g/dL (3.4-5.0); ANION GAP 11.3 mEq/L (7-13); BILIRUBIN DIRECT 0.1 mg/dL (0.0-0.2); BILIRUBIN TOTAL 0.4 mg/dL (0.2-1.0); BUN/CREATININE RATIO 28.6 (No establ ref range); C-REACTIVE PROTEIN 1.31 ng/dL (<=0.50); CALCIUM 8.4 mg/dL (8.5-10.1); CREATININE 0.98 mg/dL (0.55-1.02); EST CRCL DRUG DOSING (CG) 34.79 mL/min; POTASSIUM,K 4.3 mmol/L (3.5-5.1); PROTEIN TOTAL,TP 5.8 g/dL (6.4-8.2)
[2023-04-17] MEDS: Formoterol/Mometasone 100-5 MCG 8.8 GM Inhaler IH SCH ×2 (06:30→17:00)
[2023-04-17 06:33] LABS: A/G RATIO 0.81
[2023-04-17] MEDS ORDERED: Furosemide 20 MG/2 ML VIAL IVPUSH ONE (09:10)
[2023-04-17] MEDS: Insulin Lispro 100 Units/ML 3 ML Vial SUBCUT SCH ×3 (09:22→16:54)
[2023-04-17] MEDS: guaiFENesin 600 MG Tab.ER PO SCH ×2 (09:25→20:07)
[2023-04-17] MEDS: Dexamethasone 4 MG Tab PO SCH ×2 (09:25→20:06)
[2023-04-17] MEDS: Aspirin 81 MG Tab.EC PO SCH (09:25)
[2023-04-17] MEDS: amLODIPine 5 MG Tab PO SCH (09:25)
[2023-04-17] MEDS: Famotidine 20 MG Tab PO SCH (09:25)
[2023-04-17] MEDS: Multivitamin Tab PO SCH (09:26)
[2023-04-17] MEDS: Metoprolol Succinate 50 MG Tab.ER PO SCH ×2 (09:26→20:06)
[2023-04-17] MEDS: Calcium Carbonate/Vitamin D3 1250 MG-5 MCG Tab PO SCH (09:26)
[2023-04-17] MEDS: Apixaban 5 MG Tab PO SCH ×2 (09:26→20:06)
[2023-04-17] MEDS: REMDESIVIR 100 MG in Sodium Chloride 0.9% 100 ML IV SCH (13:38)
[2023-04-17] MEDS: Azithromycin 500 MG in Sodium Chloride 0.9% 250 ML IV SCH (14:40)
[2023-04-17] MEDS: Melatonin 3 MG Tab PO PRN (20:07)
[2023-04-17] MEDS: Losartan 50 MG Tab PO SCH (20:07)
[2023-04-18] MEDS: Albuterol/Ipratropium 3.0-0.5 MG/3 ML Neb Soln NEB SCH ×4 (00:09→17:01)
[2023-04-18] MEDS: Piperacillin/Tazobactam 3.375 GM in Sodium Chloride 0.9% 100 ML IV SCH ×4 (00:13→17:39)
[2023-04-18 06:27] LABS: EOSINOPHILS PERCENT AUTO 0.1 % (1.0-3.0); HEMATOCRIT 34.8 % (37.0-47.0); HEMOGLOBIN 11.3 g/dL (12.0-16.0); LYMPHOCYTES PERCENT AUTO 4.3 % (20.5-50.1); MEAN CORPUSCULAR HEMOGLOBIN 30.1 pg (27.0-34.0); MEAN CORPUSCULAR HGB CONC 32.5 g/dL (33.0-35.0); MEAN CORPUSCULAR VOLUME 92.8 fL (80-100); MONOCYTES PERCENT AUTO 4.2 % (2-8); NEUTROPHILS PERCENT AUTO 91.4 % (42.2-75.2); PLATELET COUNT,PLT 238 10^3/uL (150-450); RED BLOOD CELL COUNT 3.75 10^6/uL (4.2-5.4); WHITE BLOOD CELL COUNT,WBC 12.1 10^3/uL (5.0-10.0)
[2023-04-18] MEDS: Formoterol/Mometasone 100-5 MCG 8.8 GM Inhaler IH SCH ×2 (06:33→17:01)
[2023-04-18 06:36] LABS: ALBUMIN 2.6 g/dL (3.4-5.0); ANION GAP 7.3 mEq/L (7-13); BILIRUBIN DIRECT 0.1 mg/dL (0.0-0.2); BILIRUBIN TOTAL 0.4 mg/dL (0.2-1.0); BUN/CREATININE RATIO 26.5 (No establ ref range); C-REACTIVE PROTEIN 0.77 ng/dL (<=0.50); CALCIUM 8.2 mg/dL (8.5-10.1); CREATININE 1.02 mg/dL (0.55-1.02); EST CRCL DRUG DOSING (CG) 33.43 mL/min; POTASSIUM,K 4.3 mmol/L (3.5-5.1); PROTEIN TOTAL,TP 5.6 g/dL (6.4-8.2)
[2023-04-18 06:50] LABS: A/G RATIO 0.87
[2023-04-18] MEDS: Insulin Lispro 100 Units/ML 3 ML Vial SUBCUT SCH ×3 (09:07→17:20)
[2023-04-18] MEDS: Apixaban 5 MG Tab PO SCH ×2 (09:08→20:14)
[2023-04-18] MEDS: Calcium Carbonate/Vitamin D3 1250 MG-5 MCG Tab PO SCH (09:08)
[2023-04-18] MEDS: Metoprolol Succinate 50 MG Tab.ER PO SCH ×2 (09:08→20:12)
[2023-04-18] MEDS: Multivitamin Tab PO SCH (09:08)
[2023-04-18] MEDS: Dexamethasone 4 MG Tab PO SCH (09:09)
[2023-04-18] MEDS: guaiFENesin 600 MG Tab.ER PO SCH ×2 (09:09→20:14)
[2023-04-18] MEDS: Aspirin 81 MG Tab.EC PO SCH (09:09)
[2023-04-18] MEDS: amLODIPine 5 MG Tab PO SCH (09:09)
[2023-04-18] MEDS: Famotidine 20 MG Tab PO SCH (09:09)
[2023-04-18] MEDS: Furosemide 20 MG Tab PO PRN (09:09)
[2023-04-18] MEDS: REMDESIVIR 100 MG in Sodium Chloride 0.9% 100 ML IV SCH (12:39)
[2023-04-18] MEDS: Azithromycin 500 MG in Sodium Chloride 0.9% 250 ML IV SCH (14:04)
[2023-04-18] MEDS ORDERED: Dexamethasone 4 MG Tab PO SCH ×2 (17:15→17:30)
[2023-04-18] MEDS: Melatonin 3 MG Tab PO PRN (20:12)
[2023-04-18] MEDS: D EYEBOTH PRN (20:12)
[2023-04-18] MEDS: Losartan 50 MG Tab PO SCH (20:14)
[2023-04-18] MEDS: Sodium Chloride 0.9% 10 ML Syringe FLUSH PRN (20:17)
[2023-04-19] MEDS: Albuterol/Ipratropium 3.0-0.5 MG/3 ML Neb Soln NEB SCH ×4 (00:08→17:00)
[2023-04-19] MEDS: Piperacillin/Tazobactam 3.375 GM in Sodium Chloride 0.9% 100 ML IV SCH ×4 (00:08→17:39)
[2023-04-19] MEDS: Formoterol/Mometasone 100-5 MCG 8.8 GM Inhaler IH SCH ×2 (06:12→17:01)
[2023-04-19 06:48] LABS: HEMATOCRIT 37.4 % (37.0-47.0); HEMOGLOBIN 12.1 g/dL (12.0-16.0); MEAN CORPUSCULAR HEMOGLOBIN 29.8 pg (27.0-34.0); MEAN CORPUSCULAR HGB CONC 32.4 g/dL (33.0-35.0); MEAN CORPUSCULAR VOLUME 92.1 fL (80-100); PLATELET COUNT,PLT 289 10^3/uL (150-450); RED BLOOD CELL COUNT 4.06 10^6/uL (4.2-5.4); WHITE BLOOD CELL COUNT,WBC 13.2 10^3/uL (5.0-10.0)
[2023-04-19 06:54] LABS: BASOPHILS PERCENT AUTO 0.1 % (0.0-1.0); LYMPHOCYTES PERCENT AUTO 6.3 % (20.5-50.1); MONOCYTES PERCENT AUTO 7.8 % (2-8); NEUTROPHILS PERCENT AUTO 85.8 % (42.2-75.2)
[2023-04-19 07:07] LABS: ALANINE AMINOTRANSFERASE,ALT 25 U/L (14-59); ALBUMIN 2.8 g/dL (3.4-5.0); ALKALINE PHOSPHATASE 70 U/L (46-116); ANION GAP 7.2 mEq/L (7-13); ASPARTATE AMNIOTRANSFERASE,AST 14 U/L (15-37); BILIRUBIN TOTAL 0.4 mg/dL (0.2-1.0); BLOOD UREA NITROGEN,BUN 29 mg/dL (7-18); BUN/CREATININE RATIO 26.1 (No establ ref range); CALCIUM 8.6 mg/dL (8.5-10.1); CARBON DIOXIDE,CO2 34 mmol/L (21-32); CHLORIDE,CL 100 mmol/L (98-107); CREATININE 1.11 mg/dL (0.55-1.02); EST CRCL DRUG DOSING (CG) 30.72 mL/min; GLUCOSE RANDOM 97 mg/dL (70-99); MAGNESIUM 2.1 mg/dL (1.8-2.4); POTASSIUM,K 4.2 mmol/L (3.5-5.1); PROTEIN TOTAL,TP 5.8 g/dL (6.4-8.2); SODIUM,NA 137 mmol/L (136-145)
[2023-04-19 07:08] LABS: A/G RATIO 0.93; C-REACTIVE PROTEIN < 0.50 ng/dL (<=0.50); ESTIMATED GFR 50 mL/min (>=60)
[2023-04-19 07:31] LABS: BAND PERCENT MAN 3 %; LYMPHOCYTES PERCENT MAN 8 % (20-50); MONOCYTES PERCENT MAN 9 % (2-8); MYELOCYTE PERCENT MAN 1; SEG NEUTROPHILS PERCENT MAN 79 % (42-75)
[2023-04-19] MEDS: Insulin Lispro 100 Units/ML 3 ML Vial SUBCUT SCH ×3 (08:02→17:37)
[2023-04-19] MEDS: Multivitamin Tab PO SCH (08:22)
[2023-04-19] MEDS: D EYEBOTH PRN ×3 (08:22→21:19)
[2023-04-19] MEDS: Aspirin 81 MG Tab.EC PO SCH (08:23)
[2023-04-19] MEDS: Apixaban 5 MG Tab PO SCH ×2 (08:23→21:18)
[2023-04-19] MEDS: Metoprolol Succinate 50 MG Tab.ER PO SCH ×2 (08:23→21:17)
[2023-04-19] MEDS: guaiFENesin 600 MG Tab.ER PO SCH ×2 (08:23→21:18)
[2023-04-19] MEDS: amLODIPine 5 MG Tab PO SCH (08:23)
[2023-04-19] MEDS: Dexamethasone 4 MG Tab PO SCH (08:23)
[2023-04-19] MEDS: Famotidine 20 MG Tab PO SCH (08:24)
[2023-04-19] MEDS: Calcium Carbonate/Vitamin D3 1250 MG-5 MCG Tab PO SCH (08:24)
[2023-04-19] MEDS: Furosemide 20 MG Tab PO PRN (08:24)
[2023-04-19] MEDS: Azithromycin 500 MG in Sodium Chloride 0.9% 250 ML IV SCH (13:16)
[2023-04-19] MEDS: Losartan 50 MG Tab PO SCH (21:17)
[2023-04-19] MEDS: Melatonin 3 MG Tab PO PRN (21:18)
[2023-04-20] MEDS: Piperacillin/Tazobactam 3.375 GM in Sodium Chloride 0.9% 100 ML IV SCH ×4 (00:49→17:37)
[2023-04-20] MEDS: Albuterol/Ipratropium 3.0-0.5 MG/3 ML Neb Soln NEB SCH ×4 (00:49→17:00)
[2023-04-20] MEDS: Formoterol/Mometasone 100-5 MCG 8.8 GM Inhaler IH SCH ×2 (06:58→17:00)
[2023-04-20] MEDS: Insulin Lispro 100 Units/ML 3 ML Vial SUBCUT SCH ×3 (07:56→17:36)
[2023-04-20] MEDS: Calcium Carbonate/Vitamin D3 1250 MG-5 MCG Tab PO SCH (08:36)
[2023-04-20] MEDS: Apixaban 5 MG Tab PO SCH ×2 (08:36→20:16)
[2023-04-20] MEDS: guaiFENesin 600 MG Tab.ER PO SCH ×2 (08:36→20:17)
[2023-04-20] MEDS: Aspirin 81 MG Tab.EC PO SCH (08:36)
[2023-04-20] MEDS: Dexamethasone 4 MG Tab PO SCH (08:36)
[2023-04-20] MEDS: amLODIPine 5 MG Tab PO SCH (08:36)
[2023-04-20] MEDS: Multivitamin Tab PO SCH (08:36)
[2023-04-20] MEDS: Metoprolol Succinate 50 MG Tab.ER PO SCH ×2 (08:37→20:34)
[2023-04-20] MEDS: Famotidine 20 MG Tab PO SCH (08:37)
[2023-04-20] MEDS ORDERED: Losartan 25 MG Tab ONE (20:00)
[2023-04-20] MEDS: Losartan 50 MG Tab PO SCH (20:20)
[2023-04-21] MEDS: Albuterol/Ipratropium 3.0-0.5 MG/3 ML Neb Soln NEB SCH ×3 (00:23→11:52)
[2023-04-21] MEDS: Formoterol/Mometasone 100-5 MCG 8.8 GM Inhaler IH SCH (06:13)
[2023-04-21] MEDS: Calcium Carbonate/Vitamin D3 1250 MG-5 MCG Tab PO SCH (08:33)
[2023-04-21] MEDS: Insulin Lispro 100 Units/ML 3 ML Vial SUBCUT SCH ×2 (08:33→12:18)
[2023-04-21] MEDS: Apixaban 5 MG Tab PO SCH (08:34)
[2023-04-21] MEDS: Famotidine 20 MG Tab PO SCH (08:34)
[2023-04-21] MEDS: guaiFENesin 600 MG Tab.ER PO SCH (08:34)
[2023-04-21] MEDS: Metoprolol Succinate 50 MG Tab.ER PO SCH (08:34)
[2023-04-21] MEDS: Aspirin 81 MG Tab.EC PO SCH (08:34)
[2023-04-21] MEDS: amLODIPine 5 MG Tab PO SCH (08:34)
[2023-04-21] MEDS: Multivitamin Tab PO SCH (08:34)
[2023-04-21] MEDS: D EYEBOTH PRN (08:37)
[2023-04-21 11:59] VITALS: BP 170/65; PULSE 67
== END 2023-04-21 12:55 | disposition home or self-care (01) | DRG 177 ==
LOC: DL.ED 09:19 → DL.MS 11:04
PROVIDERS: ADMIT Internal Medicine; ATTEND Internal Medicine
PROC: 3E0333Z Introduction of Anti-inflammatory into Peripheral Vein, Percutaneous Approach (ICD-10-PCS; principal; 2023-04-14)
PROC: XW033E5 Introduction of Remdesivir Anti-infective into Peripheral Vein, Percutaneous Approach, New Technology Group 5 (ICD-10-PCS; 2023-04-14)
DX: U07.1 COVID-19 (principal); J96.01 Acute respiratory failure with hypoxia; J44.1 Chronic obstructive pulmonary disease with (acute) exacerbation; E78.5 Hyperlipidemia, unspecified; J44.9 Chronic obstructive pulmonary disease, unspecified; I13.0 Hypertensive heart and chronic kidney disease with heart failure and stage 1 through stage 4 chronic kidney disease, or unspecified chronic kidney disease; I12.9 Hypertensive chronic kidney disease with stage 1 through stage 4 chronic kidney disease, or unspecified chronic kidney disease; N18.30 Chronic kidney disease, stage 3 unspecified; M19.90 Unspecified osteoarthritis, unspecified site; E66.9 Obesity, unspecified; R73.9 Hyperglycemia, unspecified; I50.9 Heart failure, unspecified; Z66 Do not resuscitate; I25.10 Atherosclerotic heart disease of native coronary artery without angina pectoris; Z98.49 Cataract extraction status, unspecified eye; Z90.89 Acquired absence of other organs; I25.2 Old myocardial infarction; E78.00 Pure hypercholesterolemia, unspecified; Z88.8 Allergy status to other drugs, medicaments and biological substances; K21.9 Gastro-esophageal reflux disease without esophagitis; Z68.30 Body mass index [BMI] 30.0-30.9, adult; F17.210 Nicotine dependence, cigarettes, uncomplicated; Z99.81 Dependence on supplemental oxygen; Z90.710 Acquired absence of both cervix and uterus; Z98.890 Other specified postprocedural states; Z79.82 Long term (current) use of aspirin; Z79.899 Other long term (current) drug therapy; Z95.1 Presence of aortocoronary bypass graft; Z95.5 Presence of coronary angioplasty implant and graft
CPT/HCPCS: 36415; 71045; 80053; 82248; 83605; 83735; 83880; 84145; 84484; 85025; 85379; 85610; 85730; 86140; 93005; 94640 ×6; J2930; 51798; 82947; 87070; 87205; 94010; 94060; 94664; 94667; 94668; 94760; 94762; 97165-GO; A9270-GY; J0248; J0456; J1815-GY; J1940; J2543; J3475; J3490; J7050; J7613-GY; J7620-GY; J8540